=== PATIENT | female | born 1945 | race Caucasian/White ===

== ENCOUNTER → 2018-01-08 10:32 | Outpatient (CLI) | payer MEDICARE, OTHER, SELFPAY ==
[2018-01-08 12:32] LABS: Absolute Lymphocyte Count 0.49 X10^3/ul (0.83-4.51); Absolute Neutrophil Count 8.9 X10^3/uL (2.0-7.7); Basophil# 0.01 X10^3/uL; Basophil% 0.1 % (0-1); Eosinophil# 0.07 X10^3/uL; Eosinophils% 0.7 % (0-5); Hematocrit 34.8 % (37-47); Hemoglobin 10.6 g/dl (12.0-15.0); Lymphocyte # 0.49 X10^3/ul (4.0); Lymphocyte % 4.6 % (19-41); Mean Corp Hgb Conc 30.5 g/gl (32-36); Mean Corpuscular Hgb 26.2 pg (27.0-32.0); Mean Corpuscular Volume 86.1 fL (81-99); Monocyte# 1.14 X10^3/uL; Monocyte% 10.7 % (0-10); Neutrophil # 8.89 X10^3/uL (2.7-7.7); Neutrophil % 83.8 % (47-70); Platelet Count 288 K/mm3 (150-450); RBC Distribution Width CV 14.4 % (11.6-14.6); RBC Distribution Width SD 45.3 fl (35.1-43.9); Red Blood Count 4.04 M/mm3 (4.2-5.4); White Blood Count 10.6 K/mm3 (4.4-11.0)
[2018-01-08 12:37] LABS: Differential Indicated SCAN CRITERIA MET; POSITIVE COUNT NO; POSITIVE DIFFERENTIAL YES; POSITIVE MORPHOLOGY NO
[2018-01-08 12:40] LABS: Anion Gap 7 (5-15); BUN 13 mg/dL (7-18); BUN/Creat Ratio 11.7 RATIO (10-20); Calcium,Total 8.1 mg/dL (8.5-10.1); Chloride 101 mmol/L (98-107); Creatinine, Serum 1.11 mg/dL (0.55-1.02); EST Glomerular Filtration Rate 51 mL/min (>60); Est Glom Filt Rate - Afr Amer 62 mL/min (>60); Glucose 113 mg/dL (74-106); Potassium 2.2 mmol/L (3.5-5.1); Sodium Level 137 mmol/L (136-145); Thyroid Stim Hormone (TSH) 1.91 uIU/mL (0.358-3.74)
== END ==
PROVIDERS: Family Provider Family Medicine; PCP Family Medicine; Visit Provider Family Medicine
DX: R53.83 Other fatigue (principal)
CPT/HCPCS: 36415; 80048; 84443; 85025

== ENCOUNTER → 2018-01-14 15:40 | Outpatient (CLI) | payer MEDICARE, OTHER, SELFPAY ==
[2018-01-14 19:35] LABS: Anion Gap 7 (5-15); BUN 14 mg/dL (7-18); BUN/Creat Ratio 12.3 RATIO (10-20); Calcium,Total 8.7 mg/dL (8.5-10.1); Chloride 108 mmol/L (98-107); Creatinine, Serum 1.14 mg/dL (0.55-1.02); EST Glomerular Filtration Rate 50 mL/min (>60); Est Glom Filt Rate - Afr Amer 60 mL/min (>60); Glucose 86 mg/dL (74-106); Potassium 2.6 mmol/L (3.5-5.1); Sodium Level 141 mmol/L (136-145)
== END ==
PROVIDERS: Family Provider Family Medicine; PCP Family Medicine; Visit Provider Family Medicine
DX: E87.6 Hypokalemia (principal)
CPT/HCPCS: 36415; 80048

== ENCOUNTER → 2018-02-24 11:56 | Outpatient (CLI) | payer MEDICARE, OTHER, SELFPAY ==
[2018-02-24 13:58] LABS: Absolute Lymphocyte Count 0.65 X10^3/ul (0.83-4.51); Absolute Neutrophil Count 5.2 X10^3/uL (2.0-7.7); Basophil# 0.03 X10^3/uL; Basophil% 0.5 % (0-1); Eosinophil# 0.04 X10^3/uL; Eosinophils% 0.6 % (0-5); Hematocrit 37.7 % (37-47); Lymphocyte # 0.65 X10^3/ul (4.0); Lymphocyte % 9.8 % (19-41); Mean Corp Hgb Conc 31.8 g/gl (32-36); Mean Corpuscular Hgb 27.8 pg (27.0-32.0); Mean Corpuscular Volume 87.5 fL (81-99); Monocyte# 0.75 X10^3/uL; Monocyte% 11.3 % (0-10); Neutrophil # 5.17 X10^3/uL (2.7-7.7); Neutrophil % 77.5 % (47-70); Platelet Count 191 K/mm3 (150-450); RBC Distribution Width CV 15.8 % (11.6-14.6); RBC Distribution Width SD 50.5 fl (35.1-43.9); Red Blood Count 4.31 M/mm3 (4.2-5.4); White Blood Count 6.7 K/mm3 (4.4-11.0)
[2018-02-24 14:01] LABS: Anion Gap 11 (5-15); BUN 11 mg/dL (7-18); BUN/Creat Ratio 13.7 RATIO (10-20); Calcium,Total 8.9 mg/dL (8.5-10.1); Chloride 99 mmol/L (98-107); EST Glomerular Filtration Rate 74 mL/min (>60); Est Glom Filt Rate - Afr Amer 90 mL/min (>60); Glucose 92 mg/dL (74-106); Potassium 3.7 mmol/L (3.5-5.1); Sodium Level 135 mmol/L (136-145)
[2018-02-24 14:03] LABS: POSITIVE COUNT NO; POSITIVE DIFFERENTIAL NO; POSITIVE MORPHOLOGY NO
== END ==
PROVIDERS: Family Provider Family Medicine; PCP Family Medicine; Visit Provider Family Medicine
DX: E87.6 Hypokalemia (principal); R53.1 Weakness
CPT/HCPCS: 36415; 80048; 85025

== ENCOUNTER → 2018-03-16 09:30 | Outpatient (CLI) | payer MEDICARE, OTHER, SELFPAY ==
[2018-03-16 12:03] LABS: Absolute Lymphocyte Count 0.44 X10^3/ul (0.83-4.51); Absolute Neutrophil Count 11.5 X10^3/uL (2.0-7.7); Basophil# 0.01 X10^3/uL; Basophil% 0.1 % (0-1); Eosinophil# 0.01 X10^3/uL; Eosinophils% 0.1 % (0-5); Hematocrit 39.2 % (37-47); Hemoglobin 12.3 g/dl (12.0-15.0); Lymphocyte # 0.44 X10^3/ul (4.0); Lymphocyte % 3.6 % (19-41); Mean Corp Hgb Conc 31.4 g/gl (32-36); Mean Corpuscular Hgb 27.2 pg (27.0-32.0); Mean Corpuscular Volume 86.7 fL (81-99); Mean Platelet Vol. 10.4 fl (6.2-12.0); Monocyte# 0.44 X10^3/uL; Monocyte% 3.6 % (0-10); Neutrophil # 11.46 X10^3/uL (2.7-7.7); Neutrophil % 92.5 % (47-70); Platelet Count 194 K/mm3 (150-450); RBC Distribution Width SD 47.6 fl (35.1-43.9); Red Blood Count 4.52 M/mm3 (4.2-5.4); White Blood Count 12.4 K/mm3 (4.4-11.0)
[2018-03-16 12:10] LABS: Differential Indicated SCAN CRITERIA MET; POSITIVE COUNT NO; POSITIVE DIFFERENTIAL YES; POSITIVE MORPHOLOGY NO
[2018-03-16 13:33] LABS: ALB/GLOB Ratio 1.2 RATIO (0.9-2.4); AST(SGOT) 10 U/L (15-37); Alanine Aminotransfer ALT/SGPT 21 U/L (13-56); Albumin, Serum 3.6 g/dL (3.2-5.0); Alkaline Phosphatase 42 U/L (45-117); Anion Gap 11 (5-15); BUN 13 mg/dL (7-18); BUN/Creat Ratio 21.1 RATIO (10-20); Calcium,Total 8.7 mg/dL (8.5-10.1); Chloride 94 mmol/L (98-107); Cholesterol 200 mg/dL (200); Creatinine, Serum 0.62 mg/dL (0.55-1.02); EST Glomerular Filtration Rate 101 mL/min (>60); Est Glom Filt Rate - Afr Amer 122 mL/min (>60); Globulin 3.1 g/dL (2.2-4.2); Glucose 102 mg/dL (74-106); High Density Lipoprotein 116 mg/dL; Potassium 2.5 mmol/L (3.5-5.1); Protein, Total 6.7 g/dL (6.4-8.2); Sodium Level 134 mmol/L (136-145); Triglycerides 57 mg/dL; Very Low Density Lipoprotein 11 mg/dL (5-40)
== END ==
LOC: LAB 09:32 → MTLAB 09:32
PROVIDERS: Family Provider Family Medicine; PCP Family Medicine; Visit Provider Family Medicine
DX: G35 Multiple sclerosis (principal); E78.00 Pure hypercholesterolemia, unspecified; E87.6 Hypokalemia
CPT/HCPCS: 80053; 80061; 85025

== ENCOUNTER → 2018-05-22 12:54 | Outpatient (CLI) | payer MEDICARE, OTHER, SELFPAY ==
[2018-05-22 14:37] LABS: Anion Gap 8 (5-15); BUN 9 mg/dL (7-18); BUN/Creat Ratio 18.1 RATIO (10-20); Calcium,Total 8.5 mg/dL (8.5-10.1); Chloride 102 mmol/L (98-107); EST Glomerular Filtration Rate 130 mL/min (>60); Est Glom Filt Rate - Afr Amer 157 mL/min (>60); Glucose 100 mg/dL (74-106); Sodium Level 137 mmol/L (136-145)
--- OUTSIDE RECORDS SUMMARY | 2018-07-17 11:48 | XMS RPT_ITS ---
:1945 Author Organization OHIP Support Name Relationship Address Phone SIOMARA LUNA Unavailable Unavailable + [place] [address] KEMPEL, JOSESITO Unavailable [address] + [place] [address] R Unavailable Unavailable Unavailable HAMILTON DELACRUZ Unavailable [address] + [place] [address] DCEL, JOSESITO Unavailable [address] Unavailable [place], [place] [id number] TRISHA, JOSESITO Unavailable [address] + [place] [address] DCEL, JOSESITO Unavailable [address] + [place] [address] RETIRED Unavailable Unavailable Unavailable HAMILTON DELACRUZ Unavailable [address] + [place] [address] TRISHA, JOSESITO Unavailable [address] Unavailable [place], [place] [phone] SIOMARA LUNA Unavailable Unavailable + [place] [address] TRISHA, JOSESITO Unavailable [address] + [place] [address] R Unavailable Unavailable Unavailable SIOMARA LUNA Unavailable Unavailable + [place] [address] TRISHA, JOSESITO Unavailable [address] + [place] [address] R Unavailable Unavailable Unavailable HAMILTON DELACRUZ Unavailable [address] + [place] [address] ORLANDO DELACRUZO Unavailable [address] Unavailable [place], [place] [phone] HAMILTON DELACRUZ Unavailable [address] + [place] [address] JOSESITO DELACRUZ Unavailable [address] [place] [facility] [place] [id number] HAMILTON DELACRUZ Unavailable [address] + [place] [address] JOSESITO DELACRUZ Unavailable [address] Unavailable [place], [place] [phone] SIOMARA LUNA Unavailable Unavailable + [place] [address] JOSESITO DELACRUZ Unavailable [address] + [place] [address] R Unavailable Unavailable Unavailable HAMILTON DELACRUZ Unavailable [address] + [place] [address] JOSESITO DELACRUZ Unavailable [address] Unavailable [place], [place] [phone] FLEX LUNALY Unavailable Unavailable + [place] [address] JOSESITO DELACRUZ Unavailable [address] + [place] [address] R Unavailable Unavailable Unavailable Care Team Providers Name Role Phone ISIAH LOWE Referring Unavailable TREVOR KINGE Sanjuana (RESTAURANT CASHIER) Attending Unavailable ISIAH LOWE Referring Unavailable MADISYN NICHOLE A (RESTAURANT CASHIER) Referring Unavailable FINVeronique NICHOLE A (RESTAURANT CASHIER) Referring Unavailable ISIAH LOWE Referring Unavailable TOSHIA HARLEY Referring Unavailable FINKJOSE MIGUELNICHOLE A (RESTAURANT CASHIER) Attending Unavailable FINVeronique NICHOLE A (RESTAURANT CASHIER) Referring Unavailable FINK, NICHOLE A (RESTAURANT CASHIER) Referring Unavailable FINK, NICHOLE A (RESTAURANT CASHIER) Referring Unavailable NESHA BHAGAT. Attending Unavailable LEOLA NESHA K. Primary Care Unavailable BHAGAT, NESHA K Referring Unavailable NEISHA MEDINA MD Admitting Unavailable NEISHA MEDINA MD Attending Unavailable NEISHA MEDINA MD Primary Care Unavailable BHAGATNESHA K Consulting Unavailable PROVIDER, UNKNOWN Consulting Unavailable PROVIDER, UNKNOWN Consulting Unavailable BHAGAT, NESHA K Admitting Unavailable BHAGAT, NESHA K Attending Unavailable BHAGAT, NESHA K Primary Care Unavailable BHAGAT, NESHA K Consulting Unavailable PROVIDER, UNKNOWN Consulting Unavailable PROVIDER, UNKNOWN Consulting Unavailable BHAGAT, NESHA K Admitting Unavailable BHAGAT, NESHA K Attending Unavailable BHAGAT, NESHA K Primary Care Unavailable BHAGAT, NESHA K Consulting Unavailable PROVIDER, UNKNOWN Consulting Unavailable PROVIDER, UNKNOWN Consulting Unavailable BHAGAT, NESHA K Admitting Unavailable BHAGAT, NESHA K Attending Unavailable BHAGAT, NESHA K Primary Care Unavailable BHAGAT, NESHA K Consulting Unavailable PROVIDER, UNKNOWN Consulting Unavailable PROVIDER, UNKNOWN Consulting Unavailable BHAGAT, NESHA K Admitting Unavailable BHAGAT, NESHA K Attending Unavailable BHAGAT, NESHA K Primary Care Unavailable BHAGAT, NESHA K Consulting Unavailable PROVIDER, UNKNOWN Consulting Unavailable PROVIDER, UNKNOWN Consulting Unavailable BHAGAT, NESHA K Admitting Unavailable BHAGAT, NESHA K Attending Unavailable BHAGAT, NESHA K Primary Care Unavailable BHAGAT, NESHA K Consulting Unavailable PROVIDER, UNKNOWN Consulting Unavailable PROVIDER, UNKNOWN Consulting Unavailable Bhagat, Nesha Attending Unavailable Bhagat, Nesha Referring Unavailable Bhagat, Nesha Primary Care Unavailable Bhagat, Nesha Attending Unavailable Bhagat, Nesha Referring Unavailable Bhagat, Nesha Primary Care Unavailable Bhagat, Nesha Attending Unavailable Bhagat, Nesha Primary Care Unavailable Bhagat, Nesha Attending Unavailable Bhagat, Nesha Referring Unavailable Bhagat, Nesha Primary Care Unavailable Bhagat, Nesha Attending Unavailable Bhagat, Nesha Referring Unavailable Bhagat, Nesha Primary Care Unavailable PROBLEMS PROBLEMS DATE TYPE CONDITION / CODE ATTENDING STATUS SOURCE 05/26/2018 Active 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 Main therapy / [place] Z79.899(ICD-10) Repository 05/26/2018 Active Other malaise / NA Active [facility] R53.81(ICD-10) [facility] Main [place] Repository 05/26/2018 Active Other fatigue / NA Active [facility] R53.83(ICD-10) [facility] [place] Repository 02/24/2018 Unknown E87.6 - Hypokalemia Leola Nesha Active [facility] / E87.6(ICD-10) [facility] Repository 02/24/2018 Unknown R53.1 - Weakness / Leola Nesha Active [facility] R53.1(ICD-10) [facility] Repository 01/14/2018 Unknown 276.8 - Leola Nesha Active [facility] Hypopotassemia / [facility] 276.8(ICD-9) Hospital Repository 01/08/2018 Admitting Weakness / OMRAN, YASSER Active [facility] Diagnosis R531(ICD-10) [facility] Repository 01/08/2018 Principle Hypokalemia / OMRAN, YASSER Active [facility] Diagnosis E876(ICD-10) [facility] Repository 01/08/2018 Secondary Other specified soft OMRAN, YASSER Active [facility] Diagnosis tissue disorders / MD Herrera M7989(ICD-10) Hospital Repository 01/08/2018 Secondary Age-related OMRAN, YASSER Active [facility] Diagnosis osteoporosis without [facility] current pathological [facility] fracture / Repository M810(ICD-10) 01/08/2018 Secondary Other constipation / OMRAN, YASSER Active [facility] Diagnosis K5909(ICD-10) [facility] Repository 01/08/2018 Secondary Personal history of OMRAN, YASSER Active [facility] Diagnosis nicotine dependence [facility] / Q90435(ICD-10) Hospital Repository 01/08/2018 Secondary Other nursing home OMRAN, YASSER Active [facility] Diagnosis (current) drug [facility] therapy / Hospital W19261(ICD-10) Repository 01/08/2018 Unknown R53.83 - Other Nesha Bhagat Active [facility] fatigue / Community R53.83(ICD-10) Hospital Repository 04/09/2011 Active Multiple sclerosis / NA Active [facility] G35(ICD-10) [facility] [place] Repository 11/11/2017 Active Unspecified adverse NA Active [facility] effect of drug or Clinic Main medicament, initial [place] encounter / Repository T88.7XXA(ICD-10) PROCEDURES PROCEDURES No Procedure Records FoundRESULTS RESULTS MRI BRAIN WO/W Observed: 06/09/2018 Status: F Source: [place] IVCON 2:19 PM [facility] REPOSITORY * * *Final Report* * * DATE OF EXAM: Jun 09 2018 2:19PM [facility] 0295 - MRI BRAIN WO/W IVCON / PROCEDURE REASON: Multiple sclerosis (HCC) * * * * Physician Interpretation * * * * EXAMINATION: MRI BRAIN WO/W IVCON HISTORY: Multiple sclerosis. Routine follow-up TECHNIQUE: Brain MRI with demyelinating disease protocol with and without IV gadolinium. MQ: [id number] Contrast: 10ml mL Dotarem IV COMPARISON: MRI brain from 11/11/2017 RESULT: MR BRAIN: Parenchymal Findings: There are multiple foci of hyperintensity on FLAIR and T2 within the white matter, compatible with the clinical diagnosis of multiple sclerosis. New T2 Lesions: None Interval Improvement: None. New Enhancing Lesions: None T2 [place] of Disease: Mild. Parenchymal Volume Loss: Moderate. Other Significant Findings/Site(s) of New T2 Lesion(s): None. IMPRESSION: Multiple intracranial white matter lesions compatible with multiple sclerosis. No new T2 lesions and no new enhancing lesions. Moderate parenchymal volume loss. Other Significant Intracranial Findings: None *Note: New T2 Lesions includes both new and enlarging plaques on T2-weighted FLAIR images (new lesions greater than or equal to 5mm3 or an increase in diameter of an existing lesion by greater than or equal to 2mm). Factory Focus Technician: PSCB Transcribe Date/Time: Jun 09 2018 3:28P Dictated by : TYLER BARRON MD This examination was interpreted and the report reviewed and electronically signed by: TYLER BARRON MD on Jun 09 2018 3:30PM EST [id number] PROGRESS Observed: 06/09/2018 Status: COMPLETED Source: [place] 2:04 PM [facility] REPOSITORY [facility] ID: [id number] Author: Shell (Rt) Nancy Stallings Service: (none) Author Type: Skylights Assembler Type: Progress Notes Filed: 06/09/2018 2:05 PM Note Text: Radiology Service Progress Note PATIENT NAME: Davidson Delacruz DATE OF SERVICE: June 09, 2018 TIME: 2:04 PM PATIENT IDENTITY VERIFICATION COMPLETED USING TWO (2) METHODS: Patient confirmed name verbally and Date of . PATIENT GENDER DATA: Female. status: : No status: NO. PATIENT RELEVANT IMPLANT DATA REVIEWED: Yes CONTRAST INDUCED NEPHROPATHY RISK FACTORS: Patient age > 60 years CREATININE: Creatinine Date Value Ref Range Status 05/26/2018 0.54 (L) 0.58 - 0.96 mg/dL Final 11/11/2017 0.74 0.58 - 0.96 mg/dL Final 10/31/2016 0.67 0.58 - 0.96 mg/dL Final eGFR-All Other Races Date Value Ref Range Status 05/26/2018 >60 . Final Comment: eGFR (Estimated GFR) Units of measure: mL/min/1.73 meters squared eGFR is derived from the reexpressed MDRD Study equation using the following parameters: serum creatinine, age, gender and race. The creatinine assay has been calibrated to be traceable to IDMS. An eGFR <60 mL/min/1.73m2 for >3 months is consistent with chronic kidney disease. Refer to KDOQI guidelines for clinical interpretation. In patients with unstable renal function, e.g. those with acute kidney injury, the eGFR may not accurately reflect actual GFR. eGFR- Date Value Ref Range Status 05/26/2018 >60 Final P.O.C.T. RESULTS: POC done: Yes, See Lab Tab June 09, 2018 RADIOLOGIST NOTIFIED?: No ALLERGIES: Reviewed and unchanged CONTRAST ALLERGY: NO. PERIPHERAL IV ACCESS: Ambulatory: IV type: A peripheral IV was started in the Left antecubital site with a Angio cath: 22 gauge., Site assessment: Clean,Dry and Intact, Site disposition Discontinued RADIOLOGY DEPARTMENT: MR; Exam(s) Completed: Head: Multiple Sclerosis SIGNED BY: RT Giovanny June 09, 2018 2:04 PM COMP METABOLIC PANEL Collected: 05/26/2018 Status: F Source: [place] 12:17 PM [facility] REPOSITORY TYPE CODE TESTS RESULT OUT OF REFERENCE UNITS RANGE LAB TP 6.3-8.0 g/dL Protein, Low Total 6.0 LAB ALB 3.9-4.9 g/dL Albumin Low 3.4 LAB CA 8.5-10.2 mg/dL Calcium, Total 9.5 LAB TBIL 0.2-1.3 mg/dL Bilirubin, Total 0.2 LAB ALKP 34-123 U/L Alkaline Phosphatase 53 LAB AST 13-35 U/L AST Low 12 LAB GLU 74-99 mg/dL Glucose 98 LAB BUN 7-21 mg/dL BUN 7 LAB CRET 0.58-0.96 mg/dL Creatinine Low 0.54 LAB NA 136-144 mmol/L Sodium Low 135 LAB K 3.7-5.1 mmol/L Potassium 3.9 LAB CL 97-105 mmol/L Chloride 100 LAB CO2 22-30 mmol/L CO2 27 LAB AGAP mmol/L Anion Gap 8 LAB ALT 7-38 U/L ALT Low <5 LAB GFRAA eGFR- >60 Amer. LAB GFRNAA . eGFR-All Other Races >60 Result Comment: eGFR (Estimated GFR) Units of measure: mL/min/1.73 meters squared eGFR is derived from the reexpressed MDRD Study equation using the following parameters: serum creatinine, age, gender and race. The creatinine assay has been calibrated to be traceable to IDMS. An eGFR <60 mL/min/1.73m2 for >3 months is consistent with chronic kidney disease. Refer to KDOQI guidelines for clinical interpretation. In patients with unstable renal function, e.g. those with acute kidney injury, the eGFR may not accurately reflect actual GFR. CBC AND DIFFERENTIAL Collected: 05/26/2018 Status: F Source: [place] 12:17 PM [facility] REPOSITORY TYPE CODE TESTS RESULT OUT OF REFERENCE UNITS RANGE LAB WBC 3.70-11.00 k/uL WBC 8.05 LAB RBC 3.90-5.20 m/uL RBC 4.09 LAB HGB 11.5-15.5 g/dL Low Hemoglobin 11.2 LAB HCT 36.0-46.0 % Low Hematocrit 35.9 LAB MCV 80.0-100.0 fL MCV 87.8 LAB MCH 26.0-34.0 pG MCH 27.4 LAB MCHC 30.5-36.0 g/dL MCHC 31.2 LAB RDWCV 11.5-15.0 % RDW-CV 13.4 LAB PLTCT 150-400 k/uL Platelet Count 333 LAB MPV 9.0-12.7 fL MPV 10.2 LAB ANEUT % Neut% 80.0 LAB AANEUT 1.45-7.50 k/uL Abs Neut 6.44 LAB ALYMP % Lymph% 8.3 LAB AALYMP 1.00-4.00 k/uL Low Abs Lymph 0.67 LAB AMONO % [place]% 10.6 LAB AAMONO <0.87 k/uL Abs [place] 0.85 LAB AEOS % Eosin% 0.7 LAB AAEOS <0.46 k/uL Abs Eosin 0.06 LAB ABASO % Baso% 0.4 LAB AABASO <0.11 k/uL Abs Baso 0.03 LAB AUNRBC 0 /100 WBC NRBCs 0.0 LAB ABNRBC <0.01 k/uL Absolute nRBC <0.01 LAB DTYP DTYPE Auto Diff Performed By: #### CBCDIF, TSH, B12 #### [facility] [address] [place], [place] [address] TSH Collected: 05/26/2018 Status: F Source: [place] 12:17 PM [facility] REPOSITORY TYPE CODE TESTS RESULT OUT OF RANGE REFERENCE UNITS LAB TSH 0.400-5.500 uU/mL TSH 2.710 Performed By: #### CBCDIF, TSH, B12 #### [facility] [address] [place], [place] [address] VITAMIN B12 Collected: 05/26/2018 Status: F Source: [place] 12:17 PM [facility] [place] REPOSITORY TYPE CODE TESTS RESULT OUT OF REFERENCE UNITS RANGE LAB B12 232-1245 pg/mL Vitamin B12 451 Performed By: #### CBCDIF, TSH, B12 #### [facility] [address] [place], [place] [address] PROGRESS Observed: 05/25/2018 Status: COMPLETED Source: [place] 3:08 PM [facility] [place] REPOSITORY [facility] ID: [id number] Author: Isiah Lowe Service: (none) Author Type: Physician Type: Progress Notes Filed: 05/27/2018 2:45 PM Note Text: [facility] MULTIPLE SCLEROSIS FOLLOWUP/ESTABLISHED PATIENT VISIT PERSONS PRESENT AT ENCOUNTER: patient, ? Principal Neurologic Diagnosis: Multiple Sclerosis DISEASE SUMMARY Onset: approx 07/28 (approx 1989?) Diagnosis of MS: 12/26 Course at onset: primary progressive (vs. relapsing-remitting?) Current disease course: progressive Previous disease therapies: - Copaxone 03/28-12/01 (progression, disliked injections) - Gilenya 04/02-01/01 (infections and pancytopenia) - Tecfidera started 12/22/12 and dc'd 09/03 (leukopenia and lymphopenia) - Copaxone 40 mg 3/wk started 02/03 -12/07 - Biotin never?started in?09/05, 04/07, or 2016-b/o cost ? Current disease therapy: Ocrevus Date started 12/11/16, last q6M infusion 12/30/17 ? Most recent MRI brain: 10/31/16, 11/11/17 Most recent MRI cervical spine: 08/23/05 Most recent MRI thoracic spine: 08/23/05 CSF 12/28/05 increased IgG index, (+) OCBs TESTS SUPERINTENDENT scheduled for 01/17/06 and 01/31/06 but pt cancelled, completed 03/30/12 JCV serology: 11/11/17 (+) VZV Ig07/02/13 (+) Lab Results Component Value Date JCV Antibody INDETERMINATE 11/11/2017 JCV Index Value 0.30 (H) 11/11/2017 Discrete MRI Results Component Value Date Brain New T2 Lesions None 11/11/2017 Brain Enhancing Lesions None 11/11/2017 CHIEF COMPLAINT: Follow-up on MS disease modifying therapy INTERVAL HISTORY: -She developed increased weakness in her legs that started a few weeks after her Ocrevus infusion in December 2017. She was seen by her PCP and he felt that possibly it might be MS relapse. He ordered some labwork and was found to have low K at 2.3 . Was admitted to [facility] in [place] for over night stay to give IV potassium which she tolerated poorly and then transitioned to oral supplementation. Was given a prednisone taper for a few weeks after sent home from hospital by her PCP as her weakness did not improve despite K being in the normal range. Was seen by PCP colleague a few weeks later and started another higher dose course of prednisone taper. thought dose started at 60 mg qd. (taper may have been given in 01/2018). Pt and also note that her memory is not as good as prior to onset of the leg weakness in 01/07. She notes some leg strength increasing but still not back to baseline and using a walker to transfer but not able to walk. Was seen by home PT for 7-8 weeks. and now will be doing outpt PT soon. Last potassium check done last Friday was reportedly 4.0 . PCP recommended they come to [facility] for neurology appt since she has not gotten back to her previous baseline. reported they did not call our office or come to [facility] as it is [address] their home and felt PCP was handling w/u well and that since the potassium was low that explained her weakness. -She also has had onset of pain in her neck and goes to scapula and upper arms in last 4-6 weeks. Feels muscles are aching. SX are there daily and do not restrict moving head or activity. When she got a massage recently had to ask the staff to do it more lightly as it felt painful. Issues with current MS therapy: Tolerated Ocrevus infusions without side effects. SUBJECTIVE AND REVIEW OF SYSTEMS: Neuro-QoL Functions (higher = better functioning) Office Visit from 09/26/2016 in [facility] Office Visit from 03/28/2016 in [facility] Upper Extremity Domain T Score ? 32.58 Lower Extremity Domain T Score 40.24 40.24 Cognitive Function Domain T Score 48.61 40.89 Positive Affect Well Being T Score 49.96 48.35 Ability To Participate In Social Roles T Score ? 47.04 Satisfaction With Social Roles T Score 43.36 41.4 Neuro-QoL Symptoms (higher = worse symptoms) Office Visit from 09/26/2016 in [facility] Office Visit from 03/28/2016 in [facility] Sleep Domain T Score 42.21 49.03 Fatigue Domain T Score 43.24 47.04 Anxiety Domain T Score ? 53.23 Depression Domain T Score 46.93 50.36 Stigma Domain T Score 50.07 52.77 Emotional Behavior Dyscontrol T Score 37.3 45.21 *NeuroQoL is a multi-domain patient-reported quality of life questionnaire. PHQ-9 Office Visit from 09/26/2016 in [facility] Office Visit from 03/28/2016 in [facility] PHQ-9 Score 1 7 *PHQ-9 is a questionnaire for depressive symptoms, with scores 0-4 indicating none, 5-9 mild, 10-14 moderate, 15-19 moderately severe, and 20-27 severe symptoms. PROMIS-10 Office Visit from 09/26/2016 in [facility] Office Visit from 03/28/2016 in [facility] Global Physical Health T Score 44.9 37.4 Global Mental Health T Score 45.8 38.8 0-10 Standard Pain Scale 3 3 *PROMIS-10 is a patient-reported quality of life measure, typically reported as physical and mental domains. Here scores are expressed as percentiles, where the lowest possible score is one, the highest possible score is 99, and 50 is average. Refer to patient-entered data. Mood: Depressed r/t change in physical functioning Spasticity:Legs Bladder: urgency, but has good control. Pt does not think any urine testing done when onset of weakness began. Denied and change in bladder function at that time Bowel: uses laxative which helps constipation. Has BM 4 times a week Pain related to today's visit:neck pain, see HPI Fatigue: Moderate Sleep: ok Memory/Concentration: nursing home is ok, but she notes short term memory has not been as good since the leg weakness started. Ex : was making a recipe and could not recall if she placed all the ingredients within a few min of starting the recipe . feels he notes the memory change also, more forgetful. PAST HISTORY was reviewed and updated: PAST MEDICAL HISTORY Diagnosis Date - Arthralgia of temporomandibular joint - Esophageal reflux - ITP (idiopathic thrombocytopenic purpura) - Multiple sclerosis (HCC) - Myalgia and myositis, unspecified - Other anxiety states - Other forms of migraine - Other osteoporosis - Other sleep disturbances - Pain in joint, pelvic region and thigh R hip pain PAST SURGICAL HISTORY Procedure Laterality Date - EXCIS BREAST LES W XRAY MARKER 02/05/06 right - MAMMOGRAM NEEDLE LOC LEFT 02/05/06 right - PAST SURGICAL HISTORY OF 2014 cataract surgery - PREOP PLACEMENT NEEDLE LOC 02/05/06 right MEDICATIONS and ALLERGIES were reviewed and updated. SOCIAL HISTORY was reviewed and updated: retired Living situation: Living at home without assistance No falls in last mo OBJECTIVE: VITALS AND WELLNESS: BP 100/54 Pulse 111 Resp 16 Ht 157.5 cm (5' 2) Wt 47.2 kg (104 lb) BMI 19.02 kg/m? Recheck on pulse manually per [facility] was 100 Smoking status: Former Smoker 1.50 Packs/day For 14.00 Years Types: Cigarettes Quit date: 01/12/1978 Smokeless tobacco: Never Used Comment: quit 1977 Multiple Sclerosis Performance Test Office Visit from 07/15/2017 in [facility] Office Visit from 09/26/2016 in [facility] Processing Speed Total Number Correct ? ? Low-contrast letter acuity test-2.5 percent opacity ? ? Low-contrast letter acuity test-100 percent opacity ? ? Dominant hand Right hand Right hand MDT Left Hand Time ? 39.1 MDT Right Hand Time ? 33.7 Walking Speed Test (25 feet) ? 9.1 25 ft walk done per [facility] with stopwatch and was 21.3 sec.- With use of wheeled walker EXAM: General Appearance: Well appearing, alert, in no acute distress, well-hydrated, well nourished. Mental status evaluation during the interview and examination showed normal level of consciousness, orientation, language, memory, praxis, and higher intellectual function Affect: Normal Visual acuity: OD 20/30-2 OS 20/30 Correction: With glasses Facial sensation: Intact bilateral Facial movements: Intact bilateral Speech: normal Muscle tone: Right leg spasticity: Mild Left leg spasticity: Mild Muscle strength (#/5): Right Left Upper Extremity: Deltoids 4 4 Biceps 5 5 trunk weakness agnes Triceps 5 5 Title I Teacher 5 5 Dorsal interossei 5 5 Lower extremity: Iliopsoas 5- 5 Quadriceps 5 5 Hamstrings 5 5 Tibialis anterior 5- 5 Gastrocnemius 5 5 Coordination: Upper extremity dexterity and rapid movements: Impaired bilateral Heel-haddad: no dysmetria; coordination intact Standing balance: unable to perform Standard gait: wide based, small shuffling steps, stiff. Assistive device: walker with wheels Heel walking: unable to perform Toe walking: unable to perform Tandem walking: unable to perform RESULTS: Monitoring labs: CBC + Diff Component Value Date WBC 5.55 11/11/2017 HB 11.0 (L) 11/11/2017 HCT 37.0 11/11/2017 PLT 181 11/11/2017 ABSLYMPH 0.69 (L) 11/11/2017 Vitamin D Component Value Date VITD25 44.2 10/31/2016 CMP Component Value Date AST 24 11/11/2017 GLUC 70 (L) 11/11/2017 BUN 16 11/11/2017 CREAT 0.74 11/11/2017 NA 140 11/11/2017 K 3.7 11/11/2017 CHLOR 98 11/11/2017 ALT 17 11/11/2017 ASSESSMENT/PLAN: Disease status: neurologic exam with some increased UE weakness, gait is worse and thinking/memory is not as good since last Ocrevus infusion Symptomatic issues: gait dysfunction, memory impairment Psychosocial issues: some depression Non-MS related issues: low potassium potentially r/t use of HCTZ PATIENT HEALTH EDUCATION: MD/RESTAURANT CASHIER reviewed need to notify our office when change in neuro status occurs to provide recommendations as to plan of care and on a new med Ocrevus. PLAN: Testing: TSH, CMP, CBC, B12 Brain MRI AB-MRI of the brain and/or spinal cord is being ordered to evaluate for efficacy of multiple sclerosis (MS) disease modifying therapy.Pt also has had change in gait and memory since 12/30. Disease activity in MS is often not immediately detectable on history or examination, but is sensitively identified on MRI. If identified, new or active MS lesions on MRI may represent suboptimal response to MS therapy, and would change medical management. Referrals: None Medications: will await MRI results Follow-up: In 1 month at [facility] I spent 50 minutes in this visit, with >50% direct patient time spent counseling about prognosis, treatment options, and coordination of care. The patient was seen with Dr. Lowe. Nichole King RN HOME CARE ADMINISTRATOR.RESTAURANT CASHIER I saw and evaluated the patient. I reviewed the note and agree with the history, exam findings, assessment, and plan listed above. Her exam is noticeably worse than previously. She seems slow mentally. Gait is slow,m wide-based, with small steps. Not definitely parkinsonian but suggestive in some ways. No tremor or rigidity in the arms. Increased Sx developed shortly after the 3rd Ocrevus cycle so an MS relapse would seem unlikely, particularly in a 75 year old with PPMS. She feels she improved some, but is clearly not back to previous baseline. Further revaluation is warranted. Isiah Lowe MD CNOV Observed: 05/25/2018 Status: COMPLETED Source: [place] 1:55 PM [facility] REPOSITORY Office Visit (NEMN) DAVIDSON DELACRUZ ([id number]) 1945 F Date Time Provider Department 05/25/18 1:55 PM NICHOLE KING ([facility]) [facility] During your visit today, we recorded the following information about you: Pulse Respiration Blood pressure Weight 111/minute 16/minute 100/54 47.2 kg Height 1.575 m Isiah Lowe MD 05/27/2018 2:[address] [facility] MULTIPLE SCLEROSIS FOLLOWUP/ESTABLISHED PATIENT VISIT PERSONS PRESENT AT ENCOUNTER: patient, ? Principal Neurologic Diagnosis: Multiple Sclerosis DISEASE SUMMARY Onset: approx 07/28 (approx 1989?) Diagnosis of MS: 12/26 Course at onset: primary progressive (vs. relapsing-remitting?) Current disease course: progressive Previous disease therapies: - Copaxone 03/28-12/01 (progression, disliked injections) - Gilenya 04/02-01/01 (infections and pancytopenia) - Tecfidera started 12/22/12 and dc'd 09/03 (leukopenia and lymphopenia) - Copaxone 40 mg 3/wk started 02/03 -12/07 - Biotin never?started in?09/05, 04/07, or 2016-b/o cost ? Current disease therapy: Ocrevus Date started 12/11/16, last q6M infusion 12/30/17 ? Most recent MRI brain: 10/31/16, 11/11/17 Most recent MRI cervical spine: 08/23/05 Most recent MRI thoracic spine: 08/23/05 CSF 12/28/05 increased IgG index, (+) OCBs TESTS SUPERINTENDENT scheduled for 01/17/06 and 01/31/06 but pt cancelled, completed 03/30/12 JCV serology: 11/11/17 (+) VZV Ig07/02/13 (+) Lab Results Component Value Date JCV Antibody INDETERMINATE 11/11/2017 JCV Index Value 0.30 (H) 11/11/2017 Discrete MRI Results Component Value Date Brain New T2 Lesions None 11/11/2017 Brain Enhancing Lesions None 11/11/2017 CHIEF COMPLAINT: Follow-up on MS disease modifying therapy INTERVAL HISTORY: -She developed increased weakness in her legs that started a few weeks after her Ocrevus infusion in December 2017. She was seen by her PCP and he felt that possibly it might be MS relapse. He ordered some labwork and was found to have low K at 2.3 . Was admitted to [facility] in [place] for over night stay to give IV potassium which she tolerated poorly and then transitioned to oral supplementation. Was given a prednisone taper for a few weeks after sent home from hospital by her PCP as her weakness did not improve despite K being in the normal range. Was seen by PCP colleague a few weeks later and started another higher dose course of prednisone taper. thought dose started at 60 mg qd. (taper may have been given in 01/2018). Pt and also note that her memory is not as good as prior to onset of the leg weakness in 01/07. She notes some leg strength increasing but still not back to baseline and using a walker to transfer but not able to walk. Was seen by home PT for 7-8 weeks. and now will be doing outpt PT soon. Last potassium check done last Friday was reportedly 4.0 . PCP recommended they come to [facility] for neurology appt since she has not gotten back to her previous baseline. reported they did not call our office or come to [facility] as it is [address] their home and felt PCP was handling w/u well and that since the potassium was low that explained her weakness. -She also has had onset of pain in her neck and goes to scapula and upper arms in last 4-6 weeks. Feels muscles are aching. SX are there daily and do not restrict moving head or activity. When she got a massage recently had to ask the staff to do it more lightly as it felt painful. Issues with current MS therapy: Tolerated Ocrevus infusions without side effects. SUBJECTIVE AND REVIEW OF SYSTEMS: Neuro-QoL Functions (higher = better functioning) Office Visit from 09/26/2016 in [facility] Office Visit from 03/28/2016 in [facility] Upper Extremity Domain T Score ? 32.58 Lower Extremity Domain T Score 40.24 40.24 Cognitive Function Domain T Score 48.61 40.89 Positive Affect Well Being T Score 49.96 48.35 Ability To Participate In Social Roles T Score ? 47.04 Satisfaction With Social Roles T Score 43.36 41.4 Neuro-QoL Symptoms (higher = worse symptoms) Office Visit from 09/26/2016 in [facility] Office Visit from 03/28/2016 in [facility] Sleep Domain T Score 42.21 49.03 Fatigue Domain T Score 43.24 47.04 Anxiety Domain T Score ? 53.23 Depression Domain T Score 46.93 50.36 Stigma Domain T Score 50.07 52.77 Emotional Behavior Dyscontrol T Score 37.3 45.21 *NeuroQoL is a multi-domain patient-reported quality of life questionnaire. PHQ-9 Office Visit from 09/26/2016 in [facility] Office Visit from 03/28/2016 in [facility] PHQ-9 Score 1 7 *PHQ-9 is a questionnaire for depressive symptoms, with scores 0-4 indicating none, 5-9 mild, 10-14 moderate, 15-19 moderately severe, and 20-27 severe symptoms. PROMIS-10 Office Visit from 09/26/2016 in [facility] Office Visit from 03/28/2016 in [facility] Global Physical Health T Score 44.9 37.4 Global Mental Health T Score 45.8 38.8 0-10 Standard Pain Scale 3 3 *PROMIS-10 is a patient-reported quality of life measure, typically reported as physical and mental domains. Here scores are expressed as percentiles, where the lowest possible score is one, the highest possible score is 99, and 50 is average. Refer to patient-entered data. Mood: Depressed r/t change in physical functioning Spasticity:Legs Bladder: urgency, but has good control. Pt does not think any urine testing done when onset of weakness began. Denied and change in bladder function at that time Bowel: uses laxative which helps constipation. 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 Ex : was making a recipe and could not recall if she placed all the ingredients within a few min of starting the recipe . feels he notes the memory change also, more forgetful. PAST HISTORY was reviewed and updated: PAST MEDICAL HISTORY Diagnosis Date - Arthralgia of temporomandibular joint - Esophageal reflux - ITP (idiopathic thrombocytopenic purpura) - Multiple sclerosis (HCC) - Myalgia and myositis, unspecified - Other anxiety states - Other forms of migraine - Other osteoporosis - Other sleep disturbances - Pain in joint, pelvic region and thigh R hip pain PAST SURGICAL HISTORY Procedure Laterality Date - EXCIS BREAST LES W XRAY MARKER 02/05/06 right - MAMMOGRAM NEEDLE LOC LEFT 02/05/06 right - PAST SURGICAL HISTORY OF 2014 cataract surgery - PREOP PLACEMENT NEEDLE LOC 02/05/06 right MEDICATIONS and ALLERGIES were reviewed and updated. SOCIAL HISTORY was reviewed and updated: retired Living situation: Living at home without assistance No falls in last mo OBJECTIVE: VITALS AND WELLNESS: BP 100/54 Pulse 111 Resp 16 Ht 157.5 cm (5' 2) Wt 47.2 kg (104 lb) BMI 19.02 kg/m? Recheck on pulse manually per APC was 100 Smoking status: Former Smoker 1.50 Packs/day For 14.00 Years Types: Cigarettes Quit date: 01/12/1978 Smokeless tobacco: Never Used Comment: quit 1977 Multiple Sclerosis Performance Test Office Visit from 07/15/2017 in [facility] Office Visit from 09/26/2016 in [facility] Processing Speed Total Number Correct ? ? Low-contrast letter acuity test-2.5 percent opacity ? ? Low-contrast letter acuity test-100 percent opacity ? ? Dominant hand Right hand Right hand MDT Left Hand Time ? 39.1 MDT Right Hand Time ? 33.7 Walking Speed Test (25 feet) ? 9.1 25 ft walk done per APC with stopwatch and was 21.3 sec.- With use of wheeled walker EXAM: General Appearance: Well appearing, alert, in no acute distress, well-hydrated, well nourished. Mental status evaluation during the interview and examination showed normal level of consciousness, orientation, language, memory, praxis, and higher intellectual function Affect: Normal Visual acuity: OD 20/30-2 OS 20/30 Correction: With glasses Facial sensation: Intact bilateral Facial movements: Intact bilateral Speech: normal Muscle tone: Right leg spasticity: Mild Left leg spasticity: Mild Muscle strength (#/5): Right Left Upper Extremity: Deltoids 4 4 Biceps 5 5 trunk weakness agnes Triceps 5 5 Title I Teacher 5 5 Dorsal interossei 5 5 Lower extremity: Iliopsoas 5- 5 Quadriceps 5 5 Hamstrings 5 5 Tibialis anterior 5- 5 Gastrocnemius 5 5 Coordination: Upper extremity dexterity and rapid movements: Impaired bilateral Heel-haddad: no dysmetria; coordination intact Standing balance: unable to perform Standard gait: wide based, small shuffling steps, stiff. Assistive device: walker with wheels Heel walking: unable to perform Toe walking: unable to perform Tandem walking: unable to perform RESULTS: Monitoring labs: CBC + Diff Component Value Date WBC 5.55 11/11/2017 HB 11.0 (L) 11/11/2017 HCT 37.0 11/11/2017 PLT 181 11/11/2017 ABSLYMPH 0.69 (L) 11/11/2017 Vitamin D Component Value Date VITD25 44.2 10/31/2016 CMP Component Value Date AST 24 11/11/2017 GLUC 70 (L) 11/11/2017 BUN 16 11/11/2017 CREAT 0.74 11/11/2017 NA 140 11/11/2017 K 3.7 11/11/2017 CHLOR 98 11/11/2017 ALT 17 11/11/2017 ASSESSMENT/PLAN: Disease status: neurologic exam with some increased UE weakness, gait is worse and thinking/memory is not as good since last Ocrevus infusion Symptomatic issues: gait dysfunction, memory impairment Psychosocial issues: some depression Non-MS related issues: low potassium potentially r/t use of HCTZ PATIENT HEALTH EDUCATION: MD/RESTAURANT CASHIER reviewed need to notify our office when change in neuro status occurs to provide recommendations as to plan of care and on a new med Ocrevus. PLAN: Testing: TSH, CMP, CBC, B12 Brain MRI AB-MRI of the brain and/or spinal cord is being ordered to evaluate for efficacy of multiple sclerosis (MS) disease modifying therapy.Pt also has had change in gait and memory since 12/30. Disease activity in MS is often not immediately detectable on history or examination, but is sensitively identified on MRI. If identified, new or active MS lesions on MRI may represent suboptimal response to MS therapy, and would change medical management. Referrals: None Medications: will await MRI results Follow-up: In 1 month at [facility] I spent 50 minutes in this visit, with >50% direct patient time spent counseling about prognosis, treatment options, and coordination of care. The patient was seen with Dr. Lowe. Nichole King, RN HOME CARE ADMINISTRATOR.RESTAURANT CASHIER I saw and evaluated the patient. I reviewed the note and agree with the history, exam findings, assessment, and plan listed above. Her exam is noticeably worse than previously. She seems slow mentally. Gait is slow,m wide-based, with small steps. Not definitely parkinsonian but suggestive in some ways. No tremor or rigidity in the arms. Increased Sx developed shortly after the 3rd Ocrevus cycle so an MS relapse would seem unlikely, particularly in a 75 year old with PPMS. She feels she improved some, but is clearly not back to previous baseline. Further revaluation is warranted. Isiah Lowe MD Referring Provider: NICHOLE KING (RESTAURANT CASHIER) [[id number]] Allergies As of Date: 05/25/2018 Noted Allergy Reaction insect bite [Other] 07/25/2005 10 - Anaphylaxis Comments: Type of fly not sure what the name is Date Reviewed: 05/25/2018 Reviewed by: Nichole Wei ([facility]) Madisyn - Fully Assessed Reason for Visit: Individual Follow-up [156] Primary Visit Diagnosis:MS (multiple sclerosis) (HCC) [G35] Other Visit Diagnoses:Bilateral leg paresthesia [R20.2] Abnormality of gait [R26.9] Encounter for long-term (current) use of medications [Z79.899] Malaise and fatigue [R53.81, R53.83] Multiple sclerosis (HCC) [G35] Memory impairment [R41.3] High risk medication use [Z79.899] Order(s):CBC + DIFF [SQCBCDIF] Order #: [id number] FUTURE COMP METABOLIC PANEL [SQCMP] Order #: [id number] FUTURE TSH BLD [SQTSH] Order #: [id number] FUTURE VITAMIN B12 BLOOD [SQB12] Order #: [id number] FUTURE MRI BRAIN WO/W IVCON [4535143] Order #: [id number] FUTURE [] iv contrast (will be provided with radiology test)MRI Brain Inject, intravenously, once for 1 dose.No IV access, insert saline lock prior to beginning of sedation, infusion, injection of imaging exam.Discontinue saline lock post exam. If Pt. has a central line or IVAD, may access for administration according to line specific nursing protocol.Once exam is complete flush line and de- access according to line specific nursing protocol in the MR contrast administration guidelines linkDisp: 1 EachRfl: 0 Prescriptions as of 05/25/2018 Sig: POTASSIUM CHLORIDE ER 20 MEQ * Take 20 mEq by mouth once marisol* PRILOSEC OTC ORAL Take 1 tablet by mouth once d* LACTOBACILLUS ACIDOPHILUS 460* Take 1 capsule by mouth once * BISACODYL 5 MG TABLET Take 3 tablets by mouth as ne* ALENDRONATE 70 MG TABLET once each week. ONDANSETRON HCL 4 MG TABLET as needed. GABAPENTIN 300 MG CAPSULE 600 mg once daily. FLUCONAZOLE 150 MG TABLET as needed. SENNOSIDES 25 MG TABLET Take 50 mg by mouth once brittany* OCRELIZUMAB 30 MG/ML INTRAVEN* Inject 20 mL intravenously on* CHOLECALCIFEROL (VITAMIN D3) * Take 5,000 Units by mouth onc* MELATONIN 5 MG TABLET Take 5 mg by mouth at bedtime* ROPINIROLE 1 MG TABLET Take 2 tablets in AM 1 tablet* AMITRIPTYLINE 25 MG TABLET Take two tablets by mouth at * DOCUSATE SODIUM 100 MG CAPSULE Take 100 mg by mouth once marisol* ERYTHROMYCIN-BENZOYL PEROXIDE* Apply to affected area. 1 ap* EPINEPHRINE 0.3 MG/0.3 ML INJ* Use as directed IM injection* * ESTRADIOL 0.01% (0.1 MG/GRAM)* Use 0.5 g vaginally. twice we* * TESTOSTERONE (BULK) MISC Apply cream to vaginal area n* * CALCIUM CARB-VIT D3-MAGNESIUM* Take by mouth once daily. * ALPRAZOLAM 0.5 MG TABLET Take by mouth. Take one(1) t* * VICODIN 5 MG-500 MG TABLET 1 tab twice a day for hip/jaxson* IV CONTRAST (RADIOLOGY PROCED* MRI Brain Inject, intravenous* FAMOTIDINE 20 MG TABLET Take 20 mg by mouth twice marisol* * DIGESTIVE ENZYMES CAPSULE Take one(1) tablet two(2) valerie* * PYRIDIUM 200 MG TABLET as necessary Problem List As Of Date 05/25/2018 Noted Resolved UNSP ABNORMAL MAMMOGRAM (right) [R92.8] INVALID FOR* DIFFUS CYSTIC MASTOPATHY [N60.19] INVALID FOR* ABNORMALITY OF GAIT [R26.9] INVALID FOR* Abnormal involuntary movement [R25.9] INVALID FOR* LACK OF COORDINATION [R27.9] INVALID FOR* SENILE OSTEOPOROSIS [M81.0] INVALID FOR* Bilateral Leg Paresthesia [R20.2] INVALID FOR* MS (multiple sclerosis) [G35] INVALID FOR* Other pancytopenia [D61.818] INVALID FOR* Unspecified constipation [K59.00] INVALID FOR* Esophagitis, unspecified [K20.9] INVALID FOR* Iron deficiency anemia, unspecified [D50.9] INVALID FOR*11/23/2013 Thrombocytopenia (HCC) [D69.6] INVALID FOR* Prescriptions ordered this encounter Disp Refills Start End IV CONTRAST (RADIOLOGY PROCEDURE) 1 Ea* 0 05/25/2018 05/26/2018 Class: In Office Sig: MRI Brain Inject, intravenously, once for 1 dose.No IV access, insert saline lock prior to beginning of sedation, infusion, injection of imaging exam.Discontinue saline lock post exam. If Pt. has a central line or IVAD, may access for administration according to line specific nursing protocol.Once exam is complete flush line and de-access according to line specific nursing protocol in the MR contrast administration guidelines link Medications Discontinued During This Encounter COMPOUNDED PRESCRIPTION 60 c* 5 08/24/2015 05/25/2018 Sig: High dose Biotin 100 mg capsule once a day x 2 weeks then increase to 100 mg BID. Disc: Cost of medication Hydrochlorothiazide 12.5 mg capsule 05/25/2018 Class: Historical Med Route: ORAL Sig: Take 12.5 mg by mouth once daily. Disc: Discontinued by another Health Care Provider Disposition: Return in about 1 month (around 06/25/2018) for f/u with [facility]. Follow-up and Disposition History Recorded Encounter Status:Closed by ISIAH LOWE MD on 05/27/18 BASIC METABOLIC Collected: 05/22/2018 Status: F Source: [place] ([place]) 1:13 PM [facility] Order Comment: Order Date: 03/16/18 Order Info: [id number] - BMP TYPE CODE TESTS RESULT OUT OF RANGE REFERENCE UNITS LAB L501.0100 74-106 mg/dL Normal GLU 100 Result Comment: Fasting Glucose result from 100 to 125 mg/dL suggests IMPAIRED HOMEOSTASIS per A.D.A. criteria. Please note revised GLUCOSE reference range effective 2017. LAB L501.1000 7-18 mg/dL Normal BUN 9 LAB L501.1100 0.55-1.02 mg/dL Low CREAT,SERUM 0.50 Result Comment: The validity of the calculated GFR AND GFRAA in patients over 70 years has not been determined. Clinical correlation is essential. LAB L501.1110 >60 mL/min Normal EST GFR 130 Result Comment: Non- GFR Calc LAB L501.1115 >60 mL/min Normal EST GFR - AA 157 Result Comment: GFR Calc LAB L501.1300 10-20 RATIO Normal BUN/CRE 18.1 LAB L501.2200 8.5-10.1 mg/dL CA Normal 8.5 LAB L501.5300 136-145 mmol/L NA Normal 137 LAB L501.5600 3.5-5.1 mmol/L K Normal 4.0 LAB L501.5900 98-107 mmol/L CL Normal 102 LAB L501.6100 21.0-32.0 mmol/L Normal CO2 27.0 LAB L501.6200 5-15 Normal GAP 8 Performed By: #### L500.2500 #### [facility] [address] [place], [address] ELECTROLYTES-PANEL 4 Collected: Status: F Source: [place] 04/13/2018 2:18 PM [facility] REPOSITORY TYPE CODE TESTS RESULT OUT OF RANGE REFERENCE UNITS LAB ELECTROLYTE S-PANEL 4(LOINC) ELECTROLYTES -PANEL 4 Result Comment: ELECTROLYTES LAB SODIUM(LOINC) 136 - 145 mmol/l SODIUM Low 133 LAB POTASSIUM(LOINC) 3.5 - 5.1 mmol/L POTASSIUM 4.2 LAB CHLORIDE(LOINC) 98 - 107 mmol/L CHLORIDE 98 LAB CO2(LOINC) 21.0 - mmol/L 31.0 CO2 27.3 Performed By: #### [id number] #### [facility],[address] [place] [address] BASIC METABOLIC PANEL Collected: 04/01/2018 Status: F Source: [place] 10:30 AM [facility] REPOSITORY TYPE CODE TESTS RESULT OUT OF REFERENCE UNITS RANGE LAB NA(LOINC) 132-145 mmol/L Low Sodium 131 LAB K(LOINC) 3.3-5.1 mmol/L Potassium 4.0 LAB CLI(LOINC) 94-110 mmol/L Chloride 97 LAB TCO2(LOINC 21-34 mmol/L ) Total Co2 27 LAB GLU(LOINC) 65-100 mg/dL Glucose High 105 LAB BUN(LOINC) 3.2-26.9 mg/dL BUN 8.3 LAB CREAT(LOIN 0.51-0.95 mg/dL C) Creatinine 0.53 LAB CA(LOINC) 8.2-10.0 mg/dL Calcium 8.6 LAB AGAP(LOINC 8.0-16.0 mmol/L ) Anion Gap 11.0 LAB B-C(LOINC) 6-20 BUN/CREAT Ratio 16 LAB EGFR4(LOIN >60 C) EGFR Other Races >60 LAB EGFR5(LOIN >60 C) EGFR >60 Result Comment: Chronic Kidney Disease less than 60 mL/min/1.73 m2 Kidney Failure less than 15 mL/min/1.73 m2 Average estimated GFR by age: 70+ years 75 mL/min/1.73 m2 Performed By: #### BMP #### [facility] [address] [place] [address] BMP WITH EGFR Collected: 03/23/2018 Status: F Source: [facility] 10:34 [facility] REPOSITORY TYPE CODE TESTS RESULT OUT OF RANGE REFERENCE UNITS LAB BMP with eGFR(LOINC) BMP with eGFR Result Comment: BASIC METABOLIC PANEL LAB SODIUM(LOINC) 136 - 145 mmol/l SODIUM Low 131 LAB POTASSIUM(LOINC) 3.5 - 5.1 mmol/L POTASSIUM 3.6 LAB CHLORIDE(LOINC) 98 - 107 mmol/L CHLORIDE Low 96 LAB CO2(LOINC) 21.0 - mmol/L 31.0 CO2 27.9 LAB GLUCOSE(LOINC) 74 - 106 mg/dl GLUCOSE High 111 LAB BUN(LOINC) 6 - 20 mg/dl BUN 9 LAB CREATININE(LOINC) 0.6 - 1.2 mg/dl CREATININE 0.6 LAB CALCIUM(LOINC) 8.6 - mg/dl 10.2 CALCIUM 9.1 LAB ANION GAP(LOINC) 10 - 20 mmol/L ANION GAP 11 LAB AGE(LOINC) years AGE 73 LAB eGFR(LOINC) 60 - 999 ML/MINUTE eGFR >60 LAB eGFR(AA)(LOINC) 60 - 999 ML/MINUTE eGFR(AA) >60 Result Comment: ACCORDING TO THE NATIONAL KIDNEY DISEASE EDUCATION PROGRAM(NKDE), A NORMAL eGFR IS A VALUE GREATER THAN OR EQUAL TO 60 ML/MIN/1.73 SQ METERS. CHRONIC KIDNEY DISEASE: <60mL/MIN/1.73 SQ METERS KIDNEY FAILURE: <15mL/MIN/1.73 SQ METERS THIS TEST SHOULD ONLY BE USED FOR PATIENTS 18 YEARS OF AGE AND OLDER. Performed By: #### [id number] #### [facility],[address] [place] [address] CBC W/DIFF, AUTOMATED Collected: 03/16/2018 Status: F Source: [place] 9:38 AM [facility] Order Comment: Order Date: 09/16/17 Order Info: [id number] - CBCD TYPE CODE TESTS RESULT OUT OF RANGE REFERENCE UNITS LAB L100.1000 4.4-11.0 K/mm3 High WBC 12.4 LAB L100.1200 4.2-5.4 M/mm3 Normal RBC 4.52 LAB L100.1300 12.0-15.0 g/dl Normal HGB 12.3 LAB L100.1400 37-47 % Normal HCT 39.2 LAB L100.1500 81-99 fL Normal MCV 86.7 LAB L100.1600 27.0-32.0 pg Normal MCH 27.2 LAB L100.1700 32-36 g/gl Low MCHC 31.4 LAB L100.1810 11.6-14.6 % High RDW CV 15.0 LAB L100.1820 35.1-43.9 fl High RDW SD 47.6 LAB L100.1900 150-450 K/mm3 Normal PLT 194 LAB L100.2000 6.2-12.0 fl Normal MPV 10.4 LAB L100.2100 47-70 % High NEUT% 92.5 LAB L100.2200 19-41 % Low LY% 3.6 LAB L100.2300 0-10 % Normal MONO% 3.6 LAB L100.2400 0-5 % Normal EO% 0.1 LAB L100.2500 0-1 % Normal BASO% 0.1 LAB L100.2550 0.0-0.9 % Normal IM GRAN % 0.100 Result Comment: IG% - Immature Granulocytes (promyelocytes, myelocytes and metamyelocytes) > 1% indicates that a LEFT SHIFT is Present. LAB L100.2620 2.0-7.7 X10 3/uL High Absolute Neut 11.5 LAB L100.2720 0.83-4.51 X10 3/ul Low Absolute Lymph 0.44 Performed By: #### L100.0100, L500.4050, L500.4100 #### [facility] [address] [place], [place], [address] COMPREHENSIVE METABOLIC Collected: 03/16/2018 Status: F Source: [facility] 9:38 AM [facility] [place] Order Comment: Order Date: 09/16/17 Order Info: [id number] - CMP Order Info: [id number] - LIPID TYPE CODE TESTS RESULT OUT OF RANGE REFERENCE UNITS LAB L501.0100 74-106 mg/dL Normal GLU 102 Result Comment: Fasting Glucose result from 100 to 125 mg/dL suggests IMPAIRED HOMEOSTASIS per A.D.A. criteria. Please note revised GLUCOSE reference range effective 2017. LAB L501.1000 7-18 mg/dL Normal BUN 13 LAB L501.1100 0.55-1.02 mg/dL Normal CREAT,SERUM 0.62 Result Comment: The validity of the calculated GFR AND GFRAA in patients over 70 years has not been determined. Clinical correlation is essential. LAB L501.1110 >60 mL/min Normal EST GFR 101 Result Comment: Non- GFR Calc LAB L501.1115 >60 mL/min Normal EST GFR - AA 122 Result Comment: GFR Calc LAB L501.1300 10-20 RATIO High BUN/CRE 21.1 LAB L501.1500 6.4-8.2 g/dL T Normal PROT 6.7 LAB L501.1800 3.2-5.0 g/dL Normal ALB 3.6 LAB L501.1950 2.2-4.2 g/dL Normal GLOB 3.1 LAB L501.2000 0.9-2.4 RATIO Normal A/G 1.2 LAB L501.2200 8.5-10.1 mg/dL CA Normal 8.7 LAB L501.4100 15-37 U/L Low AST 10 LAB L501.4305 45-117 U/L Low ALK P 42 LAB L501.4405 13-56 U/L Normal ALT 21 LAB L501.4600 0.20-1.00 mg/dL T Normal BILI 0.60 LAB L501.5300 136-145 mmol/L Low NA 134 LAB L501.5600 3.5-5.1 mmol/L Low K alert 2.5 Result Comment: Critical Result(s) Called at: 13:32:26 03/16/2018 by: [facility] L501.5900 98-107 mmol/L Low CL 94 LAB L501.6100 21.0-32.0 mmol/L Normal CO2 29.0 LAB L501.6200 5-15 Normal GAP 11 Performed By: #### L100.0100, L500.4050, L500.4100 #### [facility] [address] [place], [place], [address] LIPID PROFILE Collected: 03/16/2018 Status: F Source: [place] 9:38 AM [facility] Order Comment: Order Date: 09/16/17 Order Info: [id number] - CMP Order Info: [id number] - LIPID TYPE CODE TESTS RESULT OUT OF RANGE REFERENCE UNITS LAB L501.4900 200 mg/dL Normal CHOL 200 Result Comment: <200 mg/dL Desirable 200-240 mg/dL Borderline >240 mg/dL High Risk LAB L501.5000 mg/dL Normal TRIG 57 Result Comment: The drugs N-Acetylcysteine and Metamizole may falsely depress this assay. Serum Triglycerides Reference Interval Normal <150 mg/dL Borderline high 150 - 199 mg/dL High 200 - 499 mg/dL Very High > or = 500 mg/dL LAB L501.6400 mg/dL Normal HDL 116 Result Comment: The drugs N-Acetylcysteine and Metamizole may falsely depress this assay. Reference Range HDL <40 mg/dL Low HDL Cholesterol HDL >or= 60 mg/dL High HDL Cholesterol LAB L501.6500 0-130 mg/dL Normal LDL 73 LAB L501.6600 5-40 mg/dL Normal VLDL 11 Performed By: #### L100.0100, L500.4050, L500.4100 #### [facility] [address] [place], [place], [address] BASIC METABOLIC Collected: 02/24/2018 Status: F Source: [place] PROFILE (BMP) 11:59 AM [facility] [place] TYPE CODE TESTS RESULT OUT OF RANGE REFERENCE UNITS LAB L501.0100 74-106 mg/dL Normal GLU 92 Result Comment: Please note revised GLUCOSE reference range effective 2017. LAB L501.1000 7-18 mg/dL Normal BUN 11 LAB L501.1100 0.55-1.02 mg/dL Normal CREAT,SERUM 0.80 Result Comment: The validity of the calculated GFR AND GFRAA in patients over 70 years has not been determined. Clinical correlation is essential. LAB L501.1110 >60 mL/min Normal EST GFR 74 Result Comment: Non- GFR Calc LAB L501.1115 >60 mL/min Normal EST GFR - AA 90 Result Comment: GFR Calc LAB L501.1300 10-20 RATIO Normal BUN/CRE 13.7 LAB L501.2200 8.5-10.1 mg/dL CA Normal 8.9 LAB L501.5300 136-145 mmol/L Low NA 135 LAB L501.5600 3.5-5.1 mmol/L K Normal 3.7 Result Comment: Slight Hemolysis, Result may be falsely increased. LAB L501.5900 98-107 mmol/L Normal CL 99 LAB L501.6100 21.0-32.0 mmol/L Normal CO2 25.0 LAB L501.6200 5-15 Normal GAP 11 Performed By: #### L500.2500 #### [facility] [address] [place], [place], [address] CBC W/DIFF, AUTOMATED Collected: 02/24/2018 Status: F Source: [place] 11:59 AM [facility] [place] TYPE CODE TESTS RESULT OUT OF RANGE REFERENCE UNITS LAB L100.1000 4.4-11.0 K/mm3 Normal WBC 6.7 LAB L100.1200 4.2-5.4 M/mm3 Normal RBC 4.31 LAB L100.1300 12.0-15.0 g/dl Normal HGB 12.0 LAB L100.1400 37-47 % Normal HCT 37.7 LAB L100.1500 81-99 fL Normal MCV 87.5 LAB L100.1600 27.0-32.0 pg Normal MCH 27.8 LAB L100.1700 32-36 g/gl Low MCHC 31.8 LAB L100.1810 11.6-14.6 % High RDW CV 15.8 LAB L100.1820 35.1-43.9 fl High RDW SD 50.5 LAB L100.1900 150-450 K/mm3 Normal PLT 191 LAB L100.2000 6.2-12.0 fl Normal MPV 11.0 LAB L100.2100 47-70 % High NEUT% 77.5 LAB L100.2200 19-41 % Low LY% 9.8 LAB L100.2300 0-10 % High MONO% 11.3 LAB L100.2400 0-5 % Normal EO% 0.6 LAB L100.2500 0-1 % Normal BASO% 0.5 LAB L100.2550 0.0-0.9 % Normal IM GRAN % 0.300 Result Comment: IG% - Immature Granulocytes (promyelocytes, myelocytes and metamyelocytes) > 1% indicates that a LEFT SHIFT is Present. LAB L100.2620 2.0-7.7 X10 3/uL Normal Absolute Neut 5.2 LAB L100.2720 0.83-4.51 X10 3/ul Low Absolute Lymph 0.65 Performed By: #### L100.0100 #### [facility] [address] [place], [address] BMP WITH EGFR Collected: 02/09/2018 Status: F Source: [place] 11:[address] [facility] REPOSITORY TYPE CODE TESTS RESULT OUT OF RANGE REFERENCE UNITS LAB BMP with eGFR(LOINC) BMP with eGFR Result Comment: BASIC METABOLIC PANEL LAB SODIUM(LOINC) 136 - 145 mmol/l SODIUM 136 LAB POTASSIUM(LOINC) 3.5 - 5.1 mmol/L POTASSIUM 4.1 LAB CHLORIDE(LOINC) 98 - 107 mmol/L CHLORIDE 102 LAB CO2(LOINC) 21.0 - mmol/L 31.0 CO2 29.1 LAB GLUCOSE(LOINC) 74 - 106 mg/dl GLUCOSE 88 LAB BUN(LOINC) 6 - 20 mg/dl BUN 11 LAB CREATININE(LOINC) 0.6 - 1.2 mg/dl CREATININE 0.8 LAB CALCIUM(LOINC) 8.6 - mg/dl 10.2 CALCIUM 9.2 LAB ANION GAP(LOINC) 10 - 20 mmol/L ANION Low GAP 9 LAB AGE(LOINC) years AGE 73 LAB eGFR(LOINC) 60 - 999 ML/MINUTE eGFR >60 LAB eGFR(AA)(LOINC) 60 - 999 ML/MINUTE eGFR(AA) >60 Result Comment: ACCORDING TO THE NATIONAL KIDNEY DISEASE EDUCATION PROGRAM(NKDE), A NORMAL eGFR IS A VALUE GREATER THAN OR EQUAL TO 60 ML/MIN/1.73 SQ METERS. CHRONIC KIDNEY DISEASE: <60mL/MIN/1.73 SQ METERS KIDNEY FAILURE: <15mL/MIN/1.73 SQ METERS THIS TEST SHOULD ONLY BE USED FOR PATIENTS 18 YEARS OF AGE AND OLDER. Performed By: #### [id number] #### [place] [address] ELECTROLYTES-PANEL 4 Collected: Status: F Source: [place] 01/26/2018 10:01 AM [facility] REPOSITORY TYPE CODE TESTS RESULT OUT OF RANGE REFERENCE UNITS LAB ELECTROLYTE S-PANEL 4(LOINC) ELECTROLYTES -PANEL 4 Result Comment: ELECTROLYTES LAB SODIUM(LOINC) 136 - 145 mmol/l SODIUM 136 LAB POTASSIUM(LOINC) 3.5 - 5.1 mmol/L POTASSIUM 4.8 LAB CHLORIDE(LOINC) 98 - 107 mmol/L CHLORIDE 105 LAB CO2(LOINC) 21.0 - mmol/L 31.0 CO2 26.8 Performed By: #### [id number] #### [place] [id number] HISTORY AND PHYSICAL Observed: 01/21/2018 Status: F Source: [facility] EXAM 12:06 PM [facility] HISTORY & PHYSICAL NAME ACCOUNT SEX AGE ADMIT DISCHARGE PT MED. RECORD# NUMBER DATE DATE TYPE TRISHA [id number] F 73 01/08/18 01/09/18 2 DAVIDSON Goel [id number] ROOM: 310MO DATE OF : 45 DICTATING PHYSICIAN: Neisha Medina CHIEF COMPLAINT: Low potassium. HISTORY OF PRESENT ILLNESS: This is a 73-year-old female who states she went to her primary care physician with complaint of weakness. He had blood drawn and let her know that she had severe hypokalemia and sent her to the emergency room. In the emergency room blood work was repeated with potassium critically low at 2.2. She had been on hydrochlorothiazide and quit taking it 2 days prior. She was started on K-rider; however, she was unable to tolerate it due to severe burning feeling in her veins and it had to be stopped. She was given liquid potassium and admitted for observation status. Potassium was repeated this morning and was 2.8. She was given 2 doses of p.o. potassium and it was repeated at 3.1. She denies any hypertension. She states she was on the hydrochlorothiazide for chronic leg swelling. She does have a history of MS. PAST MEDICAL HISTORY: (1) She states on her annual blood work she had low normal potassium in the past. (2) Chronic leg swelling. (3) Multiple sclerosis diagnosed about 12 years ago. (4) Osteoporosis. (5) Chronic constipation. PAST SURGICAL HISTORY: Denies any surgeries in the past. MEDICATIONS: (1) Fosamax 70 mg q week. (2) Amitriptyline 25 mg q p.m. (3) Famotidine 20 mg twice daily. (4) Hydrocodone/acetaminophen 1 tablet q 4-6 hours p.r.n. (5) Lac-Hydrin twice daily. (6) Ocrevus 30 mg /1 mL IV as at home. (7) Zofran 4 mg q 4 hours p.r.n. (8) Requip 2 mg in a.m. 1 mg in the afternoon and 2 mg q p.m. (9) Senokot S 2 tablets q 12 hours. (10) Stool softener 250 mg q p.m. (11) Vitamin D3 2000 international units daily. (12) Xanax 0.5 mg 3 times daily. (13) Bupropion extended release 150 mg daily. (14) EpiPen p.r.n. ALLERGIES: No known drug allergies. FAMILY HISTORY: Father at age 76 with prostate cancer. Mother at age 101 with congestive heart failure. Three brothers have had prostate cancer. SOCIAL HISTORY: The patient is . She has no children. She quit smoking in 1977. She does not drink alcohol. REVIEW OF SYSTEMS: She has not had any recent acute illness. She has had some Page 1 of 3 DAVIDSON DELACRUZ History & Physical generalized weakness, she thought it was worsening. No fever, chills, or respiratory infections. No chest pain. No shortness of breath. No abdominal pain. No nausea, vomiting, or diarrhea. She does get constipated and takes a stool regimen. No bowel or bladder changes. PHYSICAL EXAMINATION GENERAL APPEARANCE: The patient was lying in bed in no acute distress. She is alert, pleasant and cooperative. VITAL SIGNS: Blood pressure 102/84, heart rate 87, respirations 15, temperature 98.1, oxygen saturation 95% on room air. Weight 101 pounds with a BMI of 18.47. HEENT: Unremarkable. NECK: Supple. No evidence of mass. No JVD. No bruit. LUNGS: Normal respiratory effort. Equal lung expansion. Clear to auscultation bilaterally. HEART: Regular rate and rhythm. ABDOMEN: Soft and nontender. EXTREMITIES: Free of edema. NEUROLOGIC: She is alert and oriented, able to answer questions appropriately. DIAGNOSTIC DATA: On admission white count was 11.8, hemoglobin 10.5, hematocrit 32.3. White count repeated this morning 10.1. On admission sodium 135, potassium 2.2, BUN 14, creatinine 1.1. Creatinine this morning was 0.8 with potassium 2.8, repeated after potassium supplementation was 3.1. IMPRESSION/PLAN: 1. Severe hypokalemia secondary to diuretics. Hydrochlorothiazide was stopped by her at home 2 days ago and should avoid in the future. Potassium was replaced and she will go home on potassium chloride 20 mEq daily. Follow up with Dr. Nesha Bhagat on January 15 at 2:20 p.m. Recommend repeating the potassium level and family practitioner can order this as an outpatient. 2. Multiple sclerosis, complicating factor with the advanced weakness. 3. All other medical conditions appear stable at present. Above was discussed with the patient. All of her questions were answered. She may be discharged home today. Increase activity as tolerated. The only new prescription is potassium chloride 20 mEq daily until seen by her primary care physician with a repeat lab draw. Page 2 of 3 DAVIDSON DELACRUZ History & Physical Dictated by yoanna Sharpe for Neisha Medina M.D. I evaluated the patient myself, the above is accurate reflection of E&M done by me Juan Medina M.D. Dictated By: Neisha Medina MD 01/09/18 13:54 JOB #: [id number] Transcribed By: ashley 01/09/18 19:33 Electronically signed by: MEG MEDINA MD 01/21/18 12:06 Update to H&P: [ ] No changes: I have examined the patient and reviewed the H&P and there are no changes. [ ] As previously dictated with the following changes: PHYSICIAN SIGNATURE: TIME: DATE: Page 3 of 3 DAVIDSON DELACRUZ History & Physical BMP WITH EGFR Collected: 01/19/2018 Status: C Source: [facility] 7:[address] [facility] REPOSITORY TYPE CODE TESTS RESULT OUT OF RANGE REFERENCE UNITS LAB BMP with eGFR(LOINC) BMP with eGFR Result Comment: BASIC METABOLIC PANEL LAB SODIUM(LOINC) 136 - 145 mmol/l SODIUM 137 LAB POTASSIUM(LOINC) 3.5 - 5.1 mmol/L POTASSIUM 3.8 LAB CHLORIDE(LOINC) 98 - 107 mmol/L CHLORIDE 106 LAB CO2(LOINC) 21.0 - mmol/L 31.0 CO2 25.5 LAB GLUCOSE(LOINC) 74 - 106 mg/dl GLUCOSE 85 LAB BUN(LOINC) 6 - 20 mg/dl BUN 14 LAB CREATININE(LOINC) 0.6 - 1.2 mg/dl CREATININE 0.9 LAB CALCIUM(LOINC) 8.6 - mg/dl 10.2 CALCIUM 8.7 LAB ANION GAP(LOINC) 10 - 20 mmol/L ANION Low GAP 9 LAB AGE(LOINC) years AGE 73 LAB eGFR(LOINC) 60 - 999 ML/MINUTE eGFR 61 LAB eGFR(AA)(LOINC) 60 - 999 ML/MINUTE eGFR(AA) 74 Result Comment: ACCORDING TO THE NATIONAL KIDNEY DISEASE EDUCATION PROGRAM(NKDE), A NORMAL eGFR IS A VALUE GREATER THAN OR EQUAL TO 60 ML/MIN/1.73 SQ METERS. CHRONIC KIDNEY DISEASE: <60mL/MIN/1.73 SQ METERS KIDNEY FAILURE: <15mL/MIN/1.73 SQ METERS THIS TEST SHOULD ONLY BE USED FOR PATIENTS 18 YEARS OF AGE AND OLDER. Performed By: #### [id number] #### [facility],[address] [place] [address] CMP WITH EGFR Collected: 01/19/2018 Status: F Source: [facility] 7:30 [facility] REPOSITORY TYPE CODE TESTS RESULT OUT OF RANGE REFERENCE UNITS LAB CMP with eGFR(LOINC) CMP with eGFR Result Comment: COMPREHENSIVE METABOLIC PANEL LAB SODIUM(LOINC) 136 - 145 mmol/l SODIUM 137 LAB POTASSIUM(LOINC) 3.5 - 5.1 mmol/L POTASSIUM 3.8 LAB CHLORIDE(LOINC) 98 - 107 mmol/L CHLORIDE 106 LAB CO2(LOINC) 21.0 - mmol/L 31.0 CO2 25.5 LAB GLUCOSE(LOINC) 74 - 106 mg/dl GLUCOSE 85 LAB BUN(LOINC) 6 - 20 mg/dl BUN 14 LAB CREATININE(LOINC) 0.6 - 1.2 mg/dl CREATININE 0.9 LAB AST/SGOT(LOINC) 13 - 39 U/L AST/SGOT 19 LAB ALK PHOS(LOINC) 38 - 126 U/L ALK PHOS 52 LAB CALCIUM(LOINC) 8.6 - mg/dl 10.2 CALCIUM 8.7 LAB TOTAL PROTEIN(LOINC) 6.4 - 8.3 g/dl TOTAL Low PROTEIN 6.3 LAB ALBUMIN(LOINC) 3.4 - 4.8 g/dL ALBUMIN 3.4 LAB GLOBULIN(LOINC) 1.5 - 3.8 G/DL GLOBULIN 2.9 LAB A/G RATIO(LOINC) 0.9 - 1.6 A/G RATIO 1.2 LAB TOTAL BILI(LOINC) 0.0 - 1.5 mg/dl TOTAL BILI 0.3 LAB B/C RATIO(LOINC) 0 - 30 ratio B/C RATIO 16 LAB ALT/SGPT(LOINC) 8 - 35 U/L ALT/SGPT 17 LAB ANION GAP(LOINC) 10 - 20 mmol/L ANION Low GAP 9 LAB AGE(LOINC) years AGE 73 LAB eGFR(LOINC) 60 - 999 ML/MINUTE eGFR >60 LAB eGFR(AA)(LOINC) 60 - 999 ML/MINUTE eGFR(AA) >60 Result Comment: ACCORDING TO THE NATIONAL KIDNEY DISEASE EDUCATION PROGRAM(NKDE), A NORMAL eGFR IS A VALUE GREATER THAN OR EQUAL TO 60 ML/MIN/1.73 SQ METERS. CHRONIC KIDNEY DISEASE: <60mL/MIN/1.73 SQ METERS KIDNEY FAILURE: <15mL/MIN/1.73 SQ METERS THIS TEST SHOULD ONLY BE USED FOR PATIENTS 18 YEARS OF AGE AND OLDER. Performed By: #### [id number] #### [facility],[address] [place] [address] CORTISOL TOTAL, SERUM Collected: 01/19/2018 Status: F Source: [facility] [QUEST] 7:[address] [facility] REPOSITORY TYPE CODE TESTS RESULT OUT OF REFERENCE UNITS RANGE LAB CORTISOL TOTAL, SERUM [QUEST](LOINC) CORTISOL TOTAL, SERUM [QUEST] Result Comment: _CORTISOL TOTAL, SERUM_ CORTISOL, TOTAL Reported: 01/21/2018 02:55 Status=F TEST RESULT FLAG RANGE UNITS CORTISOL, TOTAL 14.4 mcg/dL 01/21/18.0306.rfl.COMPLETE.[facility] .2143-6 Unable to flag abnormal result(s), please refer to reference range(s) below: Reference Range: >17 Years: AM: 4.0-22.0 mcg/dL PM: 3.0-17.0 mcg/dL Test Performed by [facility], [facility], [address] [place] [id number] Emir Marcelo M.D., Ph.D., Director of Laboratories , [facility] [id number] Performed By: #### [id number] #### [facility],[address] [place] [address] BASIC METABOLIC Collected: 01/14/2018 Status: F Source: [place] PROFILE (BMP) 3:46 PM [facility] Order Comment: Order Date: 01/09/18 Order Info: 0667-1 - BMP TYPE CODE TESTS RESULT OUT OF RANGE REFERENCE UNITS LAB L501.0100 74-106 mg/dL Normal GLU 86 Result Comment: Please note revised GLUCOSE reference range effective 2017. LAB L501.1000 7-18 mg/dL Normal BUN 14 LAB L501.1100 0.55-1.02 mg/dL High CREAT,SERUM 1.14 Result Comment: The validity of the calculated GFR AND GFRAA in patients over 70 years has not been determined. Clinical correlation is essential. LAB L501.1110 >60 mL/min Low EST GFR 50 Result Comment: Non- GFR Calc LAB L501.1115 >60 mL/min Normal EST GFR - AA 60 Result Comment: GFR Calc LAB L501.1300 10-20 RATIO Normal BUN/CRE 12.3 LAB L501.2200 8.5-10.1 mg/dL CA Normal 8.7 LAB L501.5300 136-145 mmol/L NA Normal 141 LAB L501.5600 3.5-5.1 mmol/L Low K alert 2.6 Result Comment: Critical Result(s) Called at: 19:35:03 01/14/2018 by: AVNI PEREZ to Dr. Hernandez LAB L501.5900 98-107 mmol/L High CL 108 LAB L501.6100 21.0-32.0 mmol/L Normal CO2 26.0 LAB L501.6200 5-15 Normal 7 GAP Performed By: #### L500.2500 #### [facility] [address] [facility], [address] EMERGENCY REPORT Observed: 01/13/2018 Status: F Source: [facility] 12:01 AM [facility] EMERGENCY ROOM REPORT NAME ACCOUNT SEX AGE ADMIT DISCHARGE PT MED. RECORD# NUMBER DATE DATE TYPE TRISHA [id number] F 73 01/08/18 01/09/18 2 DAVIDSON Goel [id number] ROOM: 310MO DATE OF : 1945 DICTATING PHYSICIAN: Tj Dukes ADDENDUM: DIAGNOSTIC DATA: White count is 11.8, hemoglobin 10.5, hematocrit 32.3. Platelet count 292,000. Sodium 135, potassium is very low at 2.2, chloride 98, CO2 30.3, BUN 14, creatinine 1.1. Glucose 107. AST 22, ALT 17, alk phos 48. Total bilirubin is 0.4. Anion gap is 9. EMERGENCY DEPARTMENT COURSE AND TREATMENT: I did give the patient 40 mEq potassium p.o. and we started IV potassium 40 mEq and 10 mEq per hour. It has been burning her arm, so we did put some lidocaine in there. She still had some burning, so at this point the IV infusion and potassium is going slow. DIAGNOSES: 1. Hypokalemia. 2. Generalized weakness. PLAN/DISPOSITION: She has been weak to the point of falling, is what her has told me. So, I felt that she was symptomatic and I called Dr. Medina and he has admitted her to his service. I discussed this with the patient and family, and they are agreeable. Dictated By: Tj Dukes DO 01/08/18 19:11 JOB #: [id number] Transcribed By: meghan 01/10/18 10:20 Electronically signed by: E-Sign: Dr. Tj Dukes D.O. 01/13/18 00:01 Page 1 of 1 DAVIDSON DELACRUZ Emergency Room Report POTASSIUM Collected: 01/09/2018 Status: F Source: [facility] 12:[address] [facility] REPOSITORY TYPE CODE TESTS RESULT OUT OF REFERENCE UNITS RANGE LAB POTASSIUM( 3.5 - 5.1 mmol/L LOINC) Low POTASSIUM 3.1 Performed By: #### [id number] #### [facility],[address] [place] [address] CBC Collected: 01/09/2018 Status: F Source: [facility] 4:[address] [facility] REPOSITORY TYPE CODE TESTS RESULT OUT OF RANGE REFERENCE UNITS LAB CBC(LOINC) CBC Result Comment: CBC-COMPLETE BLOOD COUNT LAB WBC(LOINC) 4.5 - 10.8 x 10EE3/UL WBC 10.4 LAB RBC(LOINC) 4.10 - x 10EE6/UL 5.30 RBC Low 3.92 LAB HEMOGLOBIN(LOINC 12.0 - g/dl ) 16.0 Low HEMOGLOBIN 10.6 LAB HEMATOCRIT(LOINC 34.0 - % ) 46.0 Low HEMATOCRIT 32.2 LAB MCV(LOINC) 80 - 99 fl MCV 82 LAB MCH(LOINC) 27 - 33 pg MCH 27 LAB MCHC(LOINC) 32 - 36 X10 3 MCHC 33 LAB RDW/CV(LOINC) 12.0 - % 15.6 RDW/CV 14.5 LAB PLATELET(LOINC) 150 - 450 x10EE3/UL PLATELET 270 LAB MPV(LOINC) 6.6 - 10.5 fl MPV 8.4 Result Comment: AUTOMATED DIFFERENTIAL LAB NEUT %(LOINC) 46.0 - 76.0 % NEUT % High 81.2 LAB LYMPH %(LOINC) 20.0 - 45.0 % Low LYMPH % 6.2 LAB MONOS %(LOINC) 0.0 - 10.0 % MONOS % High 11.4 LAB EO %(LOINC) 0.0 - 7.0 % EO % 1.0 LAB BASO %(LOINC) 0.0 - 2.0 % BASO % 0.2 LAB Lymph #(LOINC) 0.80 - 2.80 x10EE3/U Low L Lymph # 0.60 LAB Neut #(LOINC) 1.50 - 7.10 x10EE3/U L Neut # High 8.50 LAB [place] #(LOINC) 0.20 - 1.00 x10EE3/U L [place] # High 1.20 LAB EO #(LOINC) 0.00 - 0.50 x10EE3/U L EO # 0.10 LAB Baso #(LOINC) 0.00 - 0.10 x10EE3/U L Baso # 0.00 LAB MANUAL DIFF(LOINC) MANUAL DIFF N/A LAB MORPHOLOGY(LOINC ) MORPHOLOGY N/A Result Comment: {CD] Performed By: #### [id number] #### [facility],[address] [place] [address] BMP WITH EGFR Collected: 01/09/2018 Status: F Source: [facility] 4:[address] [facility] REPOSITORY TYPE CODE TESTS RESULT OUT OF RANGE REFERENCE UNITS LAB BMP with eGFR(LOINC) BMP with eGFR Result Comment: BASIC METABOLIC PANEL LAB SODIUM(LOINC) 136 - 145 mmol/l SODIUM 139 LAB POTASSIUM(LOINC) 3.5 - 5.1 mmol/L Low Alert POTASSIUM 2.8 Result Comment: { CALLED TO AYAH @0535/ADL { READ BACK BY AYAH RA@0560 LAB CHLORIDE(LOINC) 98 - 107 mmol/L CHLORIDE 105 LAB CO2(LOINC) 21.0 - mmol/L 31.0 CO2 26.8 LAB GLUCOSE(LOINC) 74 - 106 mg/dl GLUCOSE High 109 LAB BUN(LOINC) 6 - 20 mg/dl BUN 11 LAB CREATININE(LOINC) 0.6 - 1.2 mg/dl CREATININE 0.8 LAB CALCIUM(LOINC) 8.6 - mg/dl 10.2 CALCIUM 8.7 LAB ANION GAP(LOINC) 10 - 20 mmol/L ANION GAP 10 LAB AGE(LOINC) years AGE 73 LAB eGFR(LOINC) 60 - 999 ML/MINUTE eGFR >60 LAB eGFR(AA)(LOINC) 60 - 999 ML/MINUTE eGFR(AA) >60 Result Comment: ACCORDING TO THE NATIONAL KIDNEY DISEASE EDUCATION PROGRAM(NKDE), A NORMAL eGFR IS A VALUE GREATER THAN OR EQUAL TO 60 ML/MIN/1.73 SQ METERS. CHRONIC KIDNEY DISEASE: <60mL/MIN/1.73 SQ METERS KIDNEY FAILURE: <15mL/MIN/1.73 SQ METERS THIS TEST SHOULD ONLY BE USED FOR PATIENTS 18 YEARS OF AGE AND OLDER. Performed By: #### [id number] #### [facility],[address] [place] [address] CBC Collected: 01/08/2018 Status: F Source: [facility] 3:[address] [facility] REPOSITORY TYPE CODE TESTS RESULT OUT OF RANGE REFERENCE UNITS LAB CBC(LOINC) CBC Result Comment: CBC-COMPLETE BLOOD COUNT LAB WBC(LOINC) 4.5 - 10.8 x 10EE3/UL WBC High 11.8 LAB RBC(LOINC) 4.10 - x 10EE6/UL 5.30 RBC Low 3.91 LAB HEMOGLOBIN(LOINC 12.0 - g/dl ) 16.0 Low HEMOGLOBIN 10.5 LAB HEMATOCRIT(LOINC 34.0 - % ) 46.0 Low HEMATOCRIT 32.3 LAB MCV(LOINC) 80 - 99 fl MCV 83 LAB MCH(LOINC) 27 - 33 pg MCH 27 LAB MCHC(LOINC) 32 - 36 X10 3 MCHC 32 LAB RDW/CV(LOINC) 12.0 - % 15.6 RDW/CV 14.4 LAB PLATELET(LOINC) 150 - 450 x10EE3/UL PLATELET 292 LAB MPV(LOINC) 6.6 - 10.5 fl MPV 8.8 Result Comment: AUTOMATED DIFFERENTIAL LAB NEUT %(LOINC) 46.0 - 76.0 % NEUT % High 84.4 LAB LYMPH %(LOINC) 20.0 - 45.0 % Low LYMPH % 3.9 LAB MONOS %(LOINC) 0.0 - 10.0 % MONOS % High 10.4 LAB EO %(LOINC) 0.0 - 7.0 % EO % 0.9 LAB BASO %(LOINC) 0.0 - 2.0 % BASO % 0.4 LAB Lymph #(LOINC) 0.80 - 2.80 x10EE3/U Low L Lymph # 0.50 LAB Neut #(LOINC) 1.50 - 7.10 x10EE3/U L Neut # High 10.00 LAB [place] #(LOINC) 0.20 - 1.00 x10EE3/U L [place] # High 1.20 LAB EO #(LOINC) 0.00 - 0.50 x10EE3/U L EO # 0.10 LAB Baso #(LOINC) 0.00 - 0.10 x10EE3/U L Baso # 0.00 LAB MANUAL DIFF(LOINC) MANUAL DIFF N/A LAB MORPHOLOGY(INC ) MORPHOLOGY N/A Result Comment: {CD] Performed By: #### [id number] #### [facility],[address] [place] [address] CMP WITH EGFR Collected: 01/08/2018 Status: F Source: [facility] 3:[address] [facility] REPOSITORY TYPE CODE TESTS RESULT OUT OF RANGE REFERENCE UNITS LAB CMP with eGFR(INC) CMP with eGFR Result Comment: COMPREHENSIVE METABOLIC PANEL LAB SODIUM(LOINC) 136 - 145 mmol/l Low SODIUM 135 LAB POTASSIUM(LOINC) 3.5 - 5.1 mmol/L Low Alert POTASSIUM 2.2 Result Comment: { CALLED TO ER AT 1705, RA 1700 { READ BACK BY BRANNON TO CWB LAB CHLORIDE(LOINC) 98 - 107 mmol/L CHLORIDE 98 LAB CO2(LOINC) 21.0 - mmol/L 31.0 CO2 30.3 LAB GLUCOSE(LOINC) 74 - 106 mg/dl GLUCOSE High 107 LAB BUN(LOINC) 6 - 20 mg/dl BUN 14 LAB CREATININE(LOINC) 0.6 - 1.2 mg/dl CREATININE 1.1 LAB AST/SGOT(LOINC) 13 - 39 U/L AST/SGOT 22 LAB ALK PHOS(LOINC) 38 - 126 U/L ALK PHOS 48 LAB CALCIUM(LOINC) 8.6 - mg/dl 10.2 CALCIUM 8.9 LAB TOTAL PROTEIN(LOINC) 6.4 - 8.3 g/dl TOTAL Low PROTEIN 6.1 LAB ALBUMIN(LOINC) 3.4 - 4.8 g/dL ALBUMIN 3.4 LAB GLOBULIN(LOINC) 1.5 - 3.8 G/DL GLOBULIN 2.7 LAB A/G RATIO(LOINC) 0.9 - 1.6 A/G RATIO 1.3 LAB TOTAL BILI(LOINC) 0.0 - 1.5 mg/dl TOTAL BILI 0.4 LAB B/C RATIO(LOINC) 0 - 30 ratio B/C RATIO 13 LAB ALT/SGPT(LOINC) 8 - 35 U/L ALT/SGPT 17 LAB ANION GAP(LOINC) 10 - 20 mmol/L ANION Low GAP 9 LAB AGE(LOINC) years AGE 73 LAB eGFR(LOINC) 60 - 999 ML/MINUTE eGFR Low 49 LAB eGFR(AA)(LOINC) 60 - 999 ML/MINUTE eGFR(AA) Low 59 Result Comment: ACCORDING TO THE NATIONAL KIDNEY DISEASE EDUCATION PROGRAM(NKDE), A NORMAL eGFR IS A VALUE GREATER THAN OR EQUAL TO 60 ML/MIN/1.73 SQ METERS. CHRONIC KIDNEY DISEASE: <60mL/MIN/1.73 SQ METERS KIDNEY FAILURE: <15mL/MIN/1.73 SQ METERS THIS TEST SHOULD ONLY BE USED FOR PATIENTS 18 YEARS OF AGE AND OLDER. Performed By: #### [id number] #### [facility],[address] [place] [address] CBC W/DIFF, AUTOMATED Collected: 01/08/2018 Status: F Source: [place] 10:41 AM [facility] [place] [facility] [place] Order Comment: Order Date: 01/08/18 Order Info: 0184-1 - CBCD TYPE CODE TESTS RESULT OUT OF RANGE REFERENCE UNITS LAB L100.1000 4.4-11.0 K/mm3 Normal WBC 10.6 LAB L100.1200 4.2-5.4 M/mm3 Low RBC 4.04 LAB L100.1300 12.0-15.0 g/dl Low HGB 10.6 LAB L100.1400 37-47 % Low HCT 34.8 LAB L100.1500 81-99 fL Normal MCV 86.1 LAB L100.1600 27.0-32.0 pg Low MCH 26.2 LAB L100.1700 32-36 g/gl Low MCHC 30.5 LAB L100.1810 11.6-14.6 % Normal RDW CV 14.4 LAB L100.1820 35.1-43.9 fl High RDW SD 45.3 LAB L100.1900 150-450 K/mm3 Normal PLT 288 LAB L100.2000 6.2-12.0 fl Normal MPV 10.0 LAB L100.2100 47-70 % High NEUT% 83.8 LAB L100.2200 19-41 % Low LY% 4.6 LAB L100.2300 0-10 % High MONO% 10.7 LAB L100.2400 0-5 % Normal EO% 0.7 LAB L100.2500 0-1 % Normal BASO% 0.1 LAB L100.2550 0.0-0.9 % Normal IM GRAN % 0.100 Result Comment: IG% - Immature Granulocytes (promyelocytes, myelocytes and metamyelocytes) > 1% indicates that a LEFT SHIFT is Present. LAB L100.2620 2.0-7.7 X10 3/uL High Absolute Neut 8.9 LAB L100.2720 0.83-4.51 X10 3/ul Low Absolute Lymph 0.49 Performed By: #### L100.0100, L500.2500, L501.9520 #### [facility] [address] [place], [place], [id number] BASIC METABOLIC Collected: 01/08/2018 Status: F Source: [place] PROFILE ([facility]) 10:41 AM [facility] Order Comment: Order Date: 01/08/18 Order Info: 0667-1 - BMP Order Info: 3016-3 - TSH TYPE CODE TESTS RESULT OUT OF RANGE REFERENCE UNITS LAB L501.0100 74-106 mg/dL High GLU 113 Result Comment: Fasting Glucose result from 100 to 125 mg/dL suggests IMPAIRED HOMEOSTASIS per A.D.A. criteria. Please note revised GLUCOSE reference range effective 2017. LAB L501.1000 7-18 mg/dL Normal BUN 13 LAB L501.1100 0.55-1.02 mg/dL High CREAT,SERUM 1.11 Result Comment: The validity of the calculated GFR AND GFRAA in patients over 70 years has not been determined. Clinical correlation is essential. LAB L501.1110 >60 mL/min Low EST GFR 51 Result Comment: Non- GFR Calc LAB L501.1115 >60 mL/min Normal EST GFR - AA 62 Result Comment: GFR Calc LAB L501.1300 10-20 RATIO Normal BUN/CRE 11.7 LAB L501.2200 8.5-10.1 mg/dL Low CA 8.1 LAB L501.5300 136-145 mmol/L NA Normal 137 LAB L501.5600 3.5-5.1 mmol/L Low K alert 2.2 LAB L501.5900 98-107 mmol/L CL Normal 101 LAB L501.6100 21.0-32.0 mmol/L Normal CO2 29.0 LAB L501.6200 5-15 Normal GAP 7 Performed By: #### L100.0100, L500.2500, L501.9520 #### [facility] [address] [facility] [place], [place], [address] THYROID STIM HORMONE Collected: 01/08/2018 Status: F Source: [place] ([facility]) 10:41 AM [facility] [place] [place] Order Comment: Order Date: 01/08/18 Order Info: [id number] - BMP Order Info: 3016-3 - TSH TYPE CODE TESTS RESULT OUT OF RANGE REFERENCE UNITS LAB L501.9520 0.358-3.74 uIU/mL Normal TSH 1.91 Performed By: #### L100.0100, L500.2500, L501.9520 #### [facility] [address] [place], [place], [address] IMMUNODEFICIENCY CDC Collected: 12/30/2017 Status: F Source: [place] 8:35 AM [facility] REPOSITORY TYPE CODE TESTS RESULT OUT OF RANGE REFERENCE UNITS LAB HCD3P 60-89 % CD3+ T 67 Cell % Result Comment: Specimen age is outside of the required limit of the IVD status reagent employed in this test. However, studies have been performed by the Flow Cytometry laboratory at the [facility] showing acceptable correlations within 48 hours of draw. LYMPHOCYTE VIABILITY WAS 100% LAB HCD3N 958-2388 Cells/uL 343 Low CD3+ T Cell No. LAB HCD4P 34-61 % 55 CD4+CD3+ T Cell % LAB HCD4N 533-1674 Cells/uL 282 Low CD4+CD3+ T Cell No. LAB HCD8P 10-41 % 11 CD3+CD8+ T Cell % LAB HCD8N 175-958 Cells/uL 54 Low CD3+CD8+ T Cell No. LAB HCD19P 5-22 % 0 Low CD19+ B Cell % LAB HCD19N 75-660 Cells/uL 0 Low CD19+ B Cell No. LAB HNKP 5-25 % 32 High NK Cell % LAB HNKN 102-565 Cells/uL 166 NK Cell No. LAB H48RAT 1.10-3.25 5.20 High CD4/CD8 Ratio LAB HCOMNT Clinical interpretation of Immunodef. lymphocyte subsets Comment must be made with caution. Relative and absolute values may be profoundly affected by immunosuppressive or cytotoxic therapy, and be abnormal in a wide variety of infectious, inflammatory, autoimmune and neoplastic disorders. Result Comment: The following number of cluster designated antibodies were used for the definition of the above reported populations: CD3, CD4, CD8, CD16, CD19, and CD56. This test was developed and its performance characteristics determined by [facility] [place] ([facility] It has not been cleared or approved by the FDA. -[facility] is regulated under CLIA as qualified to perform high-complexity testing. This test is used for clinical purposes. It should not be regarded as investigational or for research. Performed By: #### IMMDEF #### [facility] [address], [place] [address] MRI BRAIN WO/W Observed: 11/11/2017 Status: F Source: [place] 9:26 AM [facility] REPOSITORY * * *Final Report* * * DATE OF EXAM: Nov 11 2017 9:26AM WR [id number] - MRI BRAIN WO/W IVCON / PROCEDURE REASON: Multiple sclerosis * * * * Physician Interpretation * * * * EXAMINATION: MRI BRAIN WO/W IVCON CLINICAL HISTORY: Multiple sclerosis. Routine follow-up TECHNIQUE: Brain MRI with demyelinating disease protocol with and without IV gadolinium. MQ: [id number] MR Contrast: Dotarem Contrast Dose: 10 cc Route of Administration: IV COMPARISON: MR brain 10/31/2016 RESULT: MR BRAIN: Parenchymal Findings: There are multiple foci of hyperintensity on FLAIR and T2 within the white matter, compatible with the clinical diagnosis of multiple sclerosis. New T2 Lesions: None Interval Improvement: None. New Enhancing Lesions: None T2 [place] of Disease: Mild. Parenchymal Volume Loss: None. Other Significant Findings/Site(s) of New T2 Lesion(s): None. IMPRESSION: Multiple intracranial white matter lesions compatible with multiple sclerosis. No new T2 lesions and no new enhancing lesions. No significant parenchymal volume loss. Other significant findings: None. Factory Focus Technician: PSCAshley Transcribe Date/Time: Nov 11 2017 10:06A Dictated by : BRAD BUCKNER MD This examination was interpreted and the report reviewed and electronically signed by: JAMES KHAN MD on Nov 11 2017 10:35AM EST [id number] PROGRESS Observed: 11/11/2017 Status: COMPLETED Source: [place] 9:19 AM [facility] REPOSITORY HNO ID: [id number] Author: Shell (Nancy Wilde Service: (none) Author Type: Skylights Assembler Type: Progress Notes Filed: 11/11/2017 9:20 AM Note Text: Radiology Service Progress Note PATIENT NAME: Davidson Delacruz DATE OF SERVICE: November 11, 2017 TIME: 9:19 AM PATIENT IDENTITY VERIFICATION COMPLETED USING TWO (2) METHODS: Patient confirmed name verbally and Date of . PATIENT GENDER DATA: Female. status: : No status: NO. PATIENT RELEVANT IMPLANT DATA REVIEWED: Yes CONTRAST INDUCED NEPHROPATHY RISK FACTORS: Patient age > 60 years CREATININE: Creatinine Date Value Ref Range Status 10/31/2016 0.67 0.58 - 0.96 mg/dL Final 07/13/2013 0.56 (L) 0.70 - 1.40 mg/dL Final 10/05/2012 0.66 (L) 0.70 - 1.40 mg/dL Final Creatinine (POCT) Date Value Ref Range Status 08/18/2014 0.8 0.7 - 1.4 mg/dL Final Comment: Meter ID: [id number] Product Coordinator: [id number] LATHA HOPE Location: [facility] Radiology [address] [place] [address] eGFR-All Other Races Date Value Ref Range Status 10/31/2016 >60 . Final Comment: eGFR (Estimated GFR) Units of measure: mL/min/1.73 meters squared eGFR is derived from the reexpressed MDRD Study equation using the following parameters: serum creatinine, age, gender and race. The creatinine assay has been calibrated to be traceable to IDMS. An eGFR <60 mL/min/1.73m2 for >3 months is consistent with chronic kidney disease. Refer to KDOQI guidelines for clinical interpretation. In patients with unstable renal function, e.g. those with acute kidney injury, the eGFR may not accurately reflect actual GFR. eGFR- Date Value Ref Range Status 10/31/2016 >60 Final P.O.C.T. RESULTS: POC done: Yes, See Lab Tab November 11, 2017 RADIOLOGIST NOTIFIED?: No ALLERGIES: Reviewed and unchanged CONTRAST ALLERGY: NO. PERIPHERAL IV ACCESS: Ambulatory: IV type: A peripheral IV was started in the Left antecubital site with a Angio cath: 22 gauge., Site assessment: Clean,Dry and Intact, Site disposition Discontinued RADIOLOGY DEPARTMENT: MR; Exam(s) Completed: Head: Multiple Sclerosis SIGNED BY: RT Giovanny November 11, 2017 9:19 AM JOHN CREATININE Collected: 11/11/2017 Status: F Source: [place] 8:40 AM [facility] REPOSITORY TYPE CODE TESTS RESULT OUT OF REFERENCE UNITS RANGE LAB WCRET 0.7-1.4 mg/dL John Creatinine 0.8 COMP METABOLIC PANEL Collected: 11/11/2017 Status: F Source: [place] 8:40 AM [facility] REPOSITORY TYPE CODE TESTS RESULT OUT OF REFERENCE UNITS RANGE LAB TP 6.3-8.0 g/dL Protein, Total 6.3 LAB ALB 3.9-4.9 g/dL Albumin 4.2 LAB CA 8.5-10.2 mg/dL Calcium, Total 8.7 LAB TBIL 0.2-1.3 mg/dL Bilirubin, Total 0.3 LAB ALKP 32-117 U/L Alkaline Phosphatase 38 LAB AST 13-35 U/L AST 24 LAB GLU 74-99 mg/dL Low Glucose 70 Result Comment: The [place] Diabetes Association (ADA) provides guidance for cutoff values for fasting glucose and random glucose. The ADA defines fasting as no caloric intake for at least 8 hours. Fas ting plasma glucose results between 100 to 125 mg/dL indicate increased risk for diabetes (prediabetes). Fasting plasma glucose results greater than or equal to 126 mg/dL meet the criteria for diagnosis of diabetes. In the absence of unequivocal hyperglycemia, results should be confirmed by repeat testing. In a patient with classic symptoms of hyperglycemia or hyperglycemic crisis, random plasma glucose results greater than or equal to 200 mg/dL meet the criteria for diagnosis of diabetes. Reference: Standards of Medical Care in Diabetes 2016, [place] Diabetes Association. Diabetes Care. 2016.39(Suppl 1). LAB BUN 7-21 mg/dL BUN 16 LAB CRET 0.58-0.96 mg/dL Creatinine 0.74 LAB NA 136-144 mmol/L Sodium 140 LAB K 3.7-5.1 mmol/L Potassium 3.7 LAB CL 97-105 mmol/L Chloride 98 LAB CO2 22-30 mmol/L CO2 30 LAB AGAP 9-18 mmol/L Anion Gap 12 LAB ALT 7-38 U/L ALT 17 LAB GFRAA eGFR- Amer. >60 LAB GFRNAA . eGFR-All Other Races >60 Result Comment: eGFR (Estimated GFR) Units of measure: mL/min/1.73 meters squared eGFR is derived from the reexpressed MDRD Study equation using the following parameters: serum creatinine, age, gender and race. The creatinine assay has been calibrated to be traceable to IDMS. An eGFR <60 mL/min/1.73m2 for >3 months is consistent with chronic kidney disease. Refer to KDOQI guidelines for clinical interpretation. In patients with unstable renal function, e.g. those with acute kidney injury, the eGFR may not accurately reflect actual GFR. Performed By: #### CMP #### [facility] [address], [place] [address] CBC AND DIFFERENTIAL Collected: 11/11/2017 Status: F Source: [place] 8:39 AM [facility] REPOSITORY TYPE CODE TESTS RESULT OUT OF REFERENCE UNITS RANGE LAB WBC 3.70-11.00 k/uL WBC 5.55 LAB RBC 3.90-5.20 m/uL RBC 4.09 LAB HGB 11.5-15.5 g/dL Low Hemoglobin 11.0 LAB HCT 36.0-46.0 % Hematocrit 37.0 LAB MCV 80.0-100.0 fL MCV 90.5 LAB MCH 26.0-34.0 pG MCH 26.9 LAB MCHC 30.5-36.0 g/dL Low MCHC 29.7 LAB RDWCV 11.5-15.0 % RDW-CV High 16.3 LAB PLTCT 150-400 k/uL Platelet Count 181 LAB MPV 9.0-12.7 fL MPV 11.5 LAB ANEUT % Neut% 73.9 LAB AANEUT 1.45-7.50 k/uL Abs Neut 4.09 LAB ALYMP % Lymph% 12.4 LAB AALYMP 1.00-4.00 k/uL Low Abs Lymph 0.69 LAB AMONO % [place]% 12.3 LAB AAMONO <0.87 k/uL Abs [place] 0.68 LAB AEOS % Eosin% 0.9 LAB AAEOS <0.46 k/uL Abs Eosin 0.05 LAB ABASO % Baso% 0.5 LAB AABASO <0.11 k/uL Abs Baso 0.03 LAB AUNRBC 0 /100 WBC NRBCs 0.0 LAB ABNRBC <0.01 k/uL Absolute nRBC <0.01 LAB DTYP DTYPE Auto Diff Performed By: #### CBCDIF, HFP #### [facility] [address] [place] [address] HEPATIC FUNCTN PANEL Collected: 11/11/2017 Status: F Source: [place] 8:39 AM [facility] REPOSITORY TYPE CODE TESTS RESULT OUT OF REFERENCE UNITS RANGE LAB ALB 3.9-4.9 g/dL Albumin 4.2 LAB TBIL 0.2-1.3 mg/dL Bilirubin, Total 0.3 LAB CBIL <0.2 mg/dL Bilirubin,Conjuga <0.2 pamela LAB ALKP 32-117 U/L Alkaline Phosphatase 38 LAB AST 13-35 U/L AST 21 LAB ALT 7-38 U/L ALT 17 LAB TP 6.3-8.0 g/dL Low Protein, Total 6.2 Performed By: #### CBCDIF, HFP #### [facility] [address] [place] [id number] JCV AB/INDX & REFLEX Collected: 11/11/2017 Status: F Source: [place] 8:39 AM [facility] REPOSITORY TYPE CODE TESTS RESULT OUT OF REFERENCE UNITS RANGE LAB JCVIND 0.30 High JCV Index Value LAB JCVAB3 INDETERMINATE JCV Antibody Result Comment: (NOTE) Index interpretive criteria: <0.20 negative 0.20-0.40 indeterminate >0.40 positive INTERPRETATION Negative: Antibodies to JCV not detected. Indeterminate: Low level reactivity detected, see Inhibition Assay result to follow for the final antibody result. Positive: Antibodies to NILS virus (JCV) detected indicating the patient has been exposed to JCV at an undetermined time. The STRATIFY JCV Antibody Test is an enzyme-linked immunosorbent assay (MARIA DEL ROSARIO) designed to detect JCV antibodies to help identify individuals who have been exposed to the virus. Samples with low level reactivity in the detection assay are retested in a confirmation (inhibition) assay to confirm presence or absence of JCV-specific antibodies. Test Performed at: [facility] [address] [place] [id number] Regine Hernandez MD Performed By: #### EFRAÍN, HFP #### [facility] [address] [place] [address] STRATIFY INHIBITION Collected: 11/11/2017 Status: F Source: [place] *LAB USE 8:39 AM [facility] ONLY* REPOSITORY TYPE CODE TESTS RESULT OUT OF REFERENCE UNITS RANGE LAB JCVAB2 JCV Ab Inhibition FINAL RSLT: POSITIVE Result Comment: (NOTE) INTERPRETATION Positive: Antibodies to NILS virus (JCV) detected indicating the patient has been exposed to JCV at an undetermined time Negative: Antibodies to JCV not detected Test Performed at: [facility] [address] [place] [address] Regine Hernandez MD Performed By: #### EFRAÍN, HFP #### [facility] [address] [place] [id number] Observed: 08/17/2017 Status: F Source: [place] URINE CULTURE 9:04 PM [facility] REPOSITORY Sp. Request/Comment: - Specimen received in preservative Culture Result - <10,000 CFU/ml Enterococcus faecalis --> ABNORMAL ALERT Cephalosporins, clindamycin, and TMP-SMX are not effective for the treatment of enterococcal infections. --> ABNORMAL AL ERT Insignificant colony count. No further workup. --> ABNORMAL ALERT Performed By: #### URCUL #### [facility] [address] [place], [place] [address] PROGRESS Observed: 08/17/2017 Status: COMPLETED Source: [place] 12:23 PM [facility] REPOSITORY HNO ID: [id number] Author: Shakila Villalobos Service: (none) Author Type: Nurse Practitioner Type: Progress Notes Filed: 08/17/2017 12:29 PM Note Text: Subjective HPI Pt presents with c/o dysuria, urinary urgency and frequency x 5 days. Denies fever, chills, abd/flank/back pain. Taking OTC uristat. Review of Systems Constitutional: Negative for chills and fever. Gastrointestinal: Negative for abdominal pain, nausea and vomiting. Genitourinary: Positive for dysuria, frequency and urgency. Negative for flank pain and hematuria. Musculoskeletal: Negative for back pain. Objective Physical Exam Constitutional: She is oriented to person, place, and time and well-developed, well-nourished, and in no distress. No distress. Abdominal: There is no CVA tenderness. Neurological: She is alert and oriented to person, place, and time. Skin: Skin is warm and dry. She is not diaphoretic. BP 114/78 (BP Site: Left Arm, BP Position: Sitting, BP Cuff Size: Regular Adult) Pulse 83 Temp 36.1 ?C (97 ?F) (Left Tympanic) Resp 16 Wt 49.2 kg (108 lb 6.4 oz) SpO2 96% BMI 19.36 kg/m2 .Patient presents with: UTI PAST MEDICAL HISTORY Diagnosis Date - Arthralgia of temporomandibular joint - Esophageal reflux - ITP (idiopathic thrombocytopenic purpura) - Multiple sclerosis (HCC) - Myalgia and myositis, unspecified - Other anxiety states - Other forms of migraine - Other osteoporosis - Other sleep disturbances - Pain in joint, pelvic region and thigh R hip pain PAST SURGICAL HISTORY Procedure Laterality Date - EXCIS BREAST LES W XRAY MARKER 02/05/06 right - MAMMOGRAM NEEDLE LOC LEFT 02/05/06 right - PAST SURGICAL HISTORY OF 2015 cataract surgery - PREOP PLACEMENT NEEDLE LOC 02/05/06 right ALLERGIES Insect Bite [Other] MEDICATIONS Bisacodyl (CORRECTOL) 5 mg tab Take 3 tablets by mouth as needed. famotidine (PEPCID) 20 mg tablet Take 20 mg by mouth twice daily. alendronate (FOSAMAX) 70 mg tablet once each week. gabapentin (NEURONTIN) 300 mg capsule 600 mg once daily. fluconazole (DIFLUCAN) 150 mg tablet as needed. Sennosides (SENNA LAXATIVE) 25 mg tab Take 50 mg by mouth once daily. Cholecalciferol, Vitamin D3, 5,000 unit cap Take 5,000 Units by mouth once daily. Melatonin 5 mg tab Take 5 mg by mouth at bedtime as needed. rOPINIRole (REQUIP) 1 mg tablet Take 2 tablets in AM 1 tablet between 3 and 4 pm and 2 tabs at HS amitriptyline (ELAVIL) 25 mg tablet Take two tablets by mouth at bedtime. Hydrochlorothiazide 12.5 mg capsule Take 12.5 mg by mouth once daily. docusate sodium 100 mg capsule Take 100 mg by mouth once daily. ERYTHROMYCIN-BENZOYL PEROXIDE TOPICAL Apply to affected area. 1 application as needed EPINEPHrine (EPIPEN) 0.3 mg/0.3 mL (1:1,000) atIn Use as directed IM injection for insect/bee stings estradiol (ESTRACE) 0.01 % (0.1 mg/g) vaginal cream Use 0.5 g vaginally. twice weekly TESTOSTERONE, BULK, MISC Apply cream to vaginal area nightly. Ca Carb-Mag Cmb 11-D3-Zn Sulf (ZPAIPEL-FDBFPFFXB-WIEJ) [phone] on-uatq-sn-mg ORAL Tab Take by mouth once daily. ALPRAZolam (XANAX) 0.5 mg ORAL tablet Take by mouth. Take one(1) tablet daily and 2 tabs at HS acetaminophen-hydrocodone (VICODIN) 5-500 mg ORAL Tab 1 tab twice a day for hip/back pain, As needed cephALEXin (KEFLEX) 500 mg capsule Take 1 capsule by mouth twice daily for 7 days. FOR 10 DAYS Lactobacillus acidophilus (FLORAJEN) 460 mg (20 billion cell) cap Take 1 capsule by mouth once daily. ondansetron (ZOFRAN) 4 mg tablet as needed. ocrelizumab (OCREVUS) 30 mg/mL soln injection Inject 20 mL intravenously once every 6 months. COMPOUNDED PRESCRIPTION High dose Biotin 100 mg capsule once a day x 2 weeks then increase to 100 mg BID. DIGESTIVE ENZYMES CAP Take one(1) tablet two(2) times daily. PYRIDIUM 200 MG TAB as necessary FAMILY HISTORY Problem Relation Age of Onset - Breast Cancer Maternal Grandmother - Breast Cancer maternal great GM - Arthritis Mother - Alzheimers [Other] [OTHER] Mother lived to age 101 - Prostate Cancer Father - Prostate Cancer Brother - Prostate Cancer Brother - Multiple sclerosis [Other] [OTHER] No Family History - Prostate Cancer Brother Social History Substance Use Topics - Smoking status: Former Smoker Packs/day: 1.50 Years: 14.00 Types: Cigarettes Quit date: 01/12/1978 - Smokeless tobacco: Never Used Comment: quit 1977 - Alcohol use No ASSESSMENT/PLAN: 1. Acute cystitis without hematuria - ICD9: 595.0, ICD10: N30.00 (primary diagnosis) - CEPHALEXIN 500 MG CAPSULE - LACTOBACILLUS ACIDOPHILUS 460 MG (20 BILLION CELL) CAPSULE 2. Dysuria - ICD9: 788.1, ICD10: R30.0 acute - UA positive for elin esterase and nitrates - Send urine for culture - Patient education for prevention given - UA DIP B/O - URINE CULTURE The patient is instructed to return or seek emergency treatment if symptoms become worse or with any acute change in condition. The patient verbalizes understanding and is in agreement with plan of care. Shakila Villalobos CNP PROGRESS Observed: 07/15/2017 Status: COMPLETED Source: [place] 1:48 PM [facility] REPOSITORY O ID: [id number] Author: Nichole Wei (Filling Station Equipment Mechanic) Madis[place] Service: (none) Author Type: Nurse Specialist Type: Progress Notes Filed: 07/15/2017 3:05 PM Note Text: [facility] MULTIPLE SCLEROSIS FOLLOWUP/ESTABLISHED PATIENT VISIT PERSONS PRESENT AT ENCOUNTER: patient, DISEASE SUMMARY Onset: approx 07/28 (approx 1989?) Diagnosis of MS: 12/26 Course at onset: primary progressive (vs. relapsing-remitting?) Current disease course: progressive Previous disease therapies: - Copaxone 03/28-12/01 (progression, disliked injections) - Gilenya 04/02-01/01 (infections and pancytopenia) - Tecfidera started 12/22/12 and dc'd 09/03 (leukopenia and lymphopenia) ?-Copaxone 40 mg 3/wk started 02/03 -12/07 Current disease therapy: Ocrevus Date started :12/11/16 Biotin never started in 09/05 or 04/07, or in 2017-b/o cost ? Most recent MRI brain: 08/18/14 and 10/31/16 Most recent MRI cervical spine: 08/23/05 Most recent MRI thoracic spine: 08/23/05 CSF 12/28/05 increased IgG index, (+) OCBs TESTS SUPERINTENDENT scheduled for 01/17/06 and 01/31/06 but pt cancelled, completed 03/30/12 JCV serology: not done VZV Ig07/02/13 (+) MRI results: No new brain MRI to review CHIEF COMPLAINT: Follow-up on MS disease modifying therapy INTERVAL HISTORY: -she feels that her energy may be a little better since on Ocrevus. -She received a letter in last few mo that the first 2 Ocrevus infusions were not covered. She had last tx on 06/27/17. She has not yet heard if these txs will be covered and awaiting decision from her insurance. [employer] is also working on PAP to help with coverage. -No recent appt with Dr Ocasio in Heme/Onc -she did some PT for gait/balance training and felt it was helpful. Doing home exercise program. Not walking much outdoors on her property in winter but is doing stairs at home and walking in house. Issues with current MS therapy: Tolerating Ocrevus medication without side effects. SUBJECTIVE AND REVIEW OF SYSTEMS: Neuro-QoL Office Visit from 09/26/2016 in [facility] Office Visit from 03/28/2016 in [facility] Upper Extremity Percentile 4 Lower Extremity Percentile 16 16 Sleep Percentile 22 46 Fatigue Percentile 25 38 Anxiety Percentile 63 Depression Percentile 38 51 Stigma Percentile 50 61 Positive Affect Well Being Percentile 50 43 Cognitive Function Percentile 44 18 Ability To Participate In Social Roles Percentile 38 Satisfaction With Social Roles Percentile 25 19 Emotional Behavior Dyscontrol Percentile 10 32 *NeuroQoL is a multi-domain patient-reported quality of life questionnaire. Here scores are expressed as percentiles, where the lowest possible score is one, the highest possible score is 99, and 50 is average. Higher scores indicate better functioning for: Ability to Participate in Social Roles and Activities, Lower Extremity Function/Mobility, Positive Affect and Well-Being, Satisfaction with Social Roles and Activities, and Upper Extremity Function/ADL. Higher scores indicate worse functioning for: Anxiety, Cognitive Function, Depression, Emotional and Behavioral Dyscontrol, Fatigue, Sleep Disturbance, and Stigma PHQ-9 Office Visit from 09/26/2016 in [facility] Office Visit from 03/28/2016 in [facility] PHQ-9 Score 1 7 *PHQ-9 is a questionnaire for depressive symptoms, with scores 0-4 indicating none, 5-9 mild, 10-14 moderate, 15-19 moderately severe, and 20-27 severe symptoms. PROMIS-10 Office Visit from 09/26/2016 in [facility] Office Visit from 03/28/2016 in [facility] Global Physical Health T Score 44.9 37.4 Global Mental Health T Score 45.8 38.8 0-10 Standard Pain Scale 3 3 *PROMIS-10 is a patient-reported quality of life measure, typically reported as physical and mental domains. Here scores are expressed as percentiles, where the lowest possible score is one, the highest possible score is 99, and 50 is average. Mood: Good/bright Spasticity:restless legs sxs Bladder: good control but had 2 UTIs tx by PCP. She is going to make an appt to see urology for better management. Bowel: No problem Pain related to today's visit:See HPI Fatigue: None Sleep: adequate Memory/Concentration: good PAST HISTORY was reviewed and updated: PAST MEDICAL HISTORY Diagnosis Date - Arthralgia of temporomandibular joint - Esophageal reflux - ITP (idiopathic thrombocytopenic purpura) - Multiple sclerosis (HCC) - Myalgia and myositis, unspecified - Other anxiety states - Other forms of migraine - Other osteoporosis - Other sleep disturbances - Pain in joint, pelvic region and thigh R hip pain PAST SURGICAL HISTORY Procedure Laterality Date - EXCIS BREAST LES W XRAY MARKER 02/05/06 right - MAMMOGRAM NEEDLE LOC LEFT 02/05/06 right - PAST SURGICAL HISTORY OF 2015 cataract surgery - PREOP PLACEMENT NEEDLE LOC 02/05/06 right MEDICATIONS and ALLERGIES were reviewed and updated. SOCIAL HISTORY was reviewed and updated: No Data Recorded OBJECTIVE: VITALS AND WELLNESS: BP (!) 107/43 Pulse 94 Ht 159.4 cm (5' 2.75) Wt 48.4 kg (106 lb 9.6 oz) BMI 19.03 kg/m2 BP recheck per APC and 106/58-done manually Smoking status: Former Smoker 1.50 Packs/day For 14.00 Years Types: Cigarettes Quit date: 01/12/1978 Smokeless tobacco: Never Used Comment: quit 1977 Multiple Sclerosis Performance Test Office Visit from 07/15/2017 in [facility] Office Visit from 09/26/2016 in [facility] Processing Speed Test Total Number Correct Low-contrast letter acuity test-2.5 percent opacity Low-contrast letter acuity test-100 percent opacity Dominant hand Right hand Right hand MDT Left Hand Time 39.1 MDT Right Hand Time 33.7 Walking Speed Test (25 feet) 9.1 APC did 9HPT and 25 FT walk with stopwatch 25 ft walk 8.5 sec with cane R hand 26.0 sec dominant L hand 32.0 sec EXAM: General Appearance: Well appearing, alert, in no acute distress, well-hydrated, well nourished. Mental status evaluation during the interview and examination showed normal level of consciousness, orientation, language, memory, praxis, and higher intellectual function Affect: Normal Visual acuity: OD 20/25 OS 20/25 Correction: With glasses Extraocular movements: full, without ENRIQUE and smooth Facial sensation: Intact bilateral Facial movements: Intact bilateral Speech: normal Muscle tone: Right leg spasticity: None Left leg spasticity: None Muscle strength (#/5): Right Left Upper Extremity: Deltoids 5 5 Biceps 5 5 Triceps 5 5 Title I Teacher 5 5 Dorsal interossei 5 5 Lower extremity: Iliopsoas 5 5 Quadriceps 5 5 Hamstrings 5 5 Tibialis anterior 5 5 Gastrocnemius 5 5 Coordination: Upper extremity dexterity and rapid movements: mildly irregular pennie Finger-nose: no dysmetria; coordination intact Heel-haddad: no dysmetria; coordination intact Standing balance: n/t for safety Standard gait: small steps,steady,wide based Assistive device: cane Tandem walking: n/t for safety RESULTS: Monitoring labs: CBC + Diff Component Value Date WBC 4.39 10/31/2016 HB 12.7 10/31/2016 HCT 41.6 10/31/2016 PLT 138 (L) 10/31/2016 ABSLYMPH 0.61 (L) 10/31/2016 Vitamin D Component Value Date VITD25 44.2 10/31/2016 CMP Component Value Date AST 25 10/31/2016 GLUC 71 (L) 10/31/2016 BUN 11 10/31/2016 CREAT 0.67 10/31/2016 NA 141 10/31/2016 K 4.0 10/31/2016 CHLOR 102 10/31/2016 ALT 22 10/31/2016 ASSESSMENT/PLAN: Disease status: stable neurologic exam Symptomatic issues: none Psychosocial issues: none Non-MS related issues: none PATIENT HEALTH EDUCATION: overall Health/Wellness and UTI management and Vit D Supplementation PLAN: Testing: JCV Ab, CBC,CMP brain MRI in November 2017-MRI of the brain and/or spinal cord is being ordered to evaluate for efficacy of multiple sclerosis (MS) disease modifying therapy. Disease activity in MS is often not immediately detectable on history or examination, but is sensitively identified on MRI. If identified, new or active MS lesions on MRI may represent suboptimal response to MS therapy, and would change medical management. Referrals: make appt with local urology Medications: continue on Ocrevus Follow-up: In 6 months at [place] with [facility] APC I spent 40 minutes in this visit, with >50% direct patient time spent counseling about prognosis, treatment options, and coordination of care. JODY Banks CNOV Observed: 07/15/2017 Status: COMPLETED Source: [place] 12:55 PM [facility] REPOSITORY Office Visit ([facility]) DAVIDSON DELACRUZ ([id number]) 1945 F Date Time Provider Department 07/15/17 12:55 PM [facility] KING[facility] your visit today, we recorded the following information about you: Pulse Blood pressure Weight Height 94/minute 107/43 48.4 kg 1.594 m JODY Banks 07/15/2017 3:05 PM Signed [facility] FOLLOWUP/ESTABLISHED PATIENT VISIT PERSONS PRESENT AT ENCOUNTER: patient, DISEASE SUMMARY Onset: approx 07/28 (approx 1989?) Diagnosis of MS: 12/26 Course at onset: primary progressive (vs. relapsing-remitting?) Current disease course: progressive Previous disease therapies: - Copaxone 03/28-12/01 (progression, disliked injections) - Gilenya 04/02-01/01 (infections and pancytopenia) - Tecfidera started 12/22/12 and dc'd 09/03 (leukopenia and lymphopenia) ?-Copaxone 40 mg 3/wk started 02/03 -12/07 Current disease therapy: Ocrevus Date started :12/11/16 Biotin never started in 09/05 or 04/07, or in 2017-b/o cost ? Most recent MRI brain: 08/18/14 and 10/31/16 Most recent MRI cervical spine: 08/23/05 Most recent MRI thoracic spine: 08/23/05 CSF 12/28/05 increased IgG index, (+) OCBs TESTS SUPERINTENDENT scheduled for 01/17/06 and 01/31/06 but pt cancelled, completed 03/30/12 JCV serology: not done VZV Ig07/02/13 (+) MRI results: No new brain MRI to review CHIEF COMPLAINT: Follow-up on MS disease modifying therapy INTERVAL HISTORY: -she feels that her energy may be a little better since on Ocrevus. -She received a letter in last few mo that the first 2 Ocrevus infusions were not covered. She had last tx on 06/27/17. She has not yet heard if these txs will be covered and awaiting decision from her insurance. [employer] is also working on PAP to help with coverage. -No recent appt with Dr Ocasio in Heme/Onc -she did some PT for gait/balance training and felt it was helpful. Doing home exercise program. Not walking much outdoors on her property in winter but is doing stairs at home and walking in house. Issues with current MS therapy: Tolerating Ocrevus medication without side effects. SUBJECTIVE ANDamp; REVIEW OF SYSTEMS: Neuro-QoL Office Visit from 09/26/2016 in [facility] Office Visit from 03/28/2016 in [facility] Upper Extremity Percentile 4 Lower Extremity Percentile 16 16 Sleep Percentile 22 46 Fatigue Percentile 25 38 Anxiety Percentile 63 Depression Percentile 38 51 Stigma Percentile 50 61 Positive Affect Well Being Percentile 50 43 Cognitive Function Percentile 44 18 Ability To Participate In Social Roles Percentile 38 Satisfaction With Social Roles Percentile 25 19 Emotional Behavior Dyscontrol Percentile 10 32 *NeuroQoL is a multi-domain patient-reported quality of life questionnaire. Here scores are expressed as percentiles, where the lowest possible score is one, the highest possible score is 99, and 50 is average. Higher scores indicate better functioning for: Ability to Participate in Social Roles and Activities, Lower Extremity Function/Mobility, Positive Affect and Well-Being, Satisfaction with Social Roles and Activities, and Upper Extremity Function/ADL. Higher scores indicate worse functioning for: Anxiety, Cognitive Function, Depression, Emotional and Behavioral Dyscontrol, Fatigue, Sleep Disturbance, and Stigma PHQ-9 Office Visit from 09/26/2016 in [facility] Office Visit from 03/28/2016 in [facility] PHQ-9 Score 1 7 *PHQ-9 is a questionnaire for depressive symptoms, with scores 0-4 indicating none, 5-9 mild, 10-14 moderate, 15-19 moderately severe, and 20-27 severe symptoms. PROMIS-10 Office Visit from 09/26/2016 in [facility] Office Visit from 03/28/2016 in [facility] Global Physical Health T Score 44.9 37.4 Global Mental Health T Score 45.8 38.8 0-10 Standard Pain Scale 3 3 *PROMIS-10 is a patient-reported quality of life measure, typically reported as physical and mental domains. Here scores are expressed as percentiles, where the lowest possible score is one, the highest possible score is 99, and 50 is average. Mood: Good/bright Spasticity:restless legs sxs Bladder: good control but had 2 UTIs tx by PCP. She is going to make an appt to see urology for better management. Bowel: No problem Pain related to today's visit:See HPI Fatigue: None Sleep: adequate Memory/Concentration: good PAST HISTORY was reviewed and updated: PAST MEDICAL HISTORY Diagnosis Date - Arthralgia of temporomandibular joint - Esophageal reflux - ITP (idiopathic thrombocytopenic purpura) - Multiple sclerosis (HCC) - Myalgia and myositis, unspecified - Other anxiety states - Other forms of migraine - Other osteoporosis - Other sleep disturbances - Pain in joint, pelvic region and thigh R hip pain PAST SURGICAL HISTORY Procedure Laterality Date - EXCIS BREAST LES W XRAY MARKER 02/05/06 right - MAMMOGRAM NEEDLE LOC LEFT 02/05/06 right - PAST SURGICAL HISTORY OF 2015 cataract surgery - PREOP PLACEMENT NEEDLE LOC 02/05/06 right MEDICATIONS and ALLERGIES were reviewed and updated. SOCIAL HISTORY was reviewed and updated: No Data Recorded OBJECTIVE: VITALS ANDamp; WELLNESS: BP (!) 107/43 Pulse 94 Ht 159.4 cm (5' 2.75ANDquot;) Wt 48.4 kg (106 lb 9.6 oz) BMI 19.03 kg/m2 BP recheck per APC and 106/58-done manually Smoking status: Former Smoker 1.50 Packs/day For 14.00 Years Types: Cigarettes Quit date: 01/12/1978 Smokeless tobacco: Never Used Comment: quit 1977 Multiple Sclerosis Performance Test Office Visit from 07/15/2017 in [facility] Office Visit from 09/26/2016 in [facility] Processing Speed Test Total Number Correct Low-contrast letter acuity test-2.5 percent opacity Low-contrast letter acuity test-100 percent opacity Dominant hand Right hand Right hand MDT Left Hand Time 39.1 MDT Right Hand Time 33.7 Walking Speed Test (25 feet) 9.1 APC did 9HPT and 25 FT walk with stopwatch 25 ft walk 8.5 sec with cane R hand 26.0 sec dominant L hand 32.0 sec EXAM: General Appearance: Well appearing, alert, in no acute distress, well-hydrated, well nourished. Mental status evaluation during the interview and examination showed normal level of consciousness, orientation, language, memory, praxis, and higher intellectual function Affect: Normal Visual acuity: OD 20/25 OS 20/25 Correction: With glasses Extraocular movements: full, without ENRIQUE and smooth Facial sensation: Intact bilateral Facial movements: Intact bilateral Speech: normal Muscle tone: Right leg spasticity: None Left leg spasticity: None Muscle strength (#/5): Right Left Upper Extremity: Deltoids 5 5 Biceps 5 5 Triceps 5 5 Title I Teacher 5 5 Dorsal interossei 5 5 Lower extremity: Iliopsoas 5 5 Quadriceps 5 5 Hamstrings 5 5 Tibialis anterior 5 5 Gastrocnemius 5 5 Coordination: Upper extremity dexterity and rapid movements: mildly irregular pennie Finger-nose: no dysmetria; coordination intact Heel-haddad: no dysmetria; coordination intact Standing balance: n/t for safety Standard gait: small steps,steady,wide based Assistive device: cane Tandem walking: n/t for safety RESULTS: Monitoring labs: CBC + Diff Component Value Date WBC 4.39 10/31/2016 HB 12.7 10/31/2016 HCT 41.6 10/31/2016 PLT 138 (L) 10/31/2016 ABSLYMPH 0.61 (L) 10/31/2016 Vitamin D Component Value Date VITD25 44.2 10/31/2016 CMP Component Value Date AST 25 10/31/2016 GLUC 71 (L) 10/31/2016 BUN 11 10/31/2016 CREAT 0.67 10/31/2016 NA 141 10/31/2016 K 4.0 10/31/2016 CHLOR 102 10/31/2016 ALT 22 10/31/2016 ASSESSMENT/PLAN: Disease status: stable neurologic exam Symptomatic issues: none Psychosocial issues: none Non-MS related issues: none PATIENT HEALTH EDUCATION: overall Health/Wellness and UTI management and Vit D Supplementation PLAN: Testing: JCV Ab, CBC,CMP brain MRI in November 2017-MRI of the brain and/or spinal cord is being ordered to evaluate for efficacy of multiple sclerosis (MS) disease modifying therapy. Disease activity in MS is often not immediately detectable on history or examination, but is sensitively identified on MRI. If identified, new or active MS lesions on MRI may represent suboptimal response to MS therapy, and would change medical management. Referrals: make appt with local urology Medications: continue on Ocrevus Follow-up: In 6 months at [facility] I spent 40 minutes in this visit, with ANDgt;50% direct patient time spent counseling about prognosis, treatment options, and coordination of care. Nichole King RN [employer] Referring Provider: ISIAH LOWE [[id number]] Allergies As of Date: 07/15/2017 Noted Allergy Reaction insect bite [Other] 07/25/2005 10 - Anaphylaxis Date Reviewed: 07/15/2017 Reviewed by: Nichole Wei (Filling Station Equipment Mechanic) Madisyn - Fully Assessed Reason for Visit: Follow Up [171] Primary Visit Diagnosis:Multiple sclerosis (HCC) [G35] Other Visit Diagnoses:Abnormal involuntary movement [R25.9] Abnormality of gait [R26.9] Encounter for long-term (current) use of medications [Z79.899] Adverse effect of drug, initial encounter [T88.7XXA] History of recurrent UTIs [Z87.440] Thrombocytopenia (HCC) [D69.6] High risk medication use [Z79.899] Order(s):MRI BRAIN WO/W IVCON [[id number]] Order #: [id number] FUTURE iv contrast (radiology procedure)MRI Brain Inject, intravenously, once for 1 dose.No IV access, insert saline lock prior to beginning of sedation, infusion, injection of imaging exam.Discontinue saline lock post exam. If Pt. has a central line or IVAD, may access for administration according to line specific nursing protocol.Once exam is complete flush line and de-access according to line specific nursing protocol in the MR contrast administration guidelines linkDisp: 1 EachRfl: 0 COMP METABOLIC PANEL [SQCMP] Order #: [id number] FUTURE CBC + DIFF [SQCBCDIF] Order #: [id number] FUTURE JCV ANTIBODY AND INDEX WITH REFLEX [SQJCVIDX] Order #: [id number] FUTURE Prescriptions as of 07/15/2017 Sig: BISACODYL 5 MG TABLET Take 3 tablets by mouth as ne* FAMOTIDINE 20 MG TABLET Take 20 mg by mouth twice marisol* SENNOSIDES 25 MG TABLET Take 50 mg by mouth once brittany* OCRELIZUMAB 30 MG/ML INTRAVEN* Inject 20 mL intravenously on* CHOLECALCIFEROL (VITAMIN D3) * Take 5,000 Units by mouth onc* MELATONIN 5 MG TABLET Take 5 mg by mouth at bedtime* ROPINIROLE 1 MG TABLET Take 2 tablets in AM 1 tablet* AMITRIPTYLINE 25 MG TABLET Take two tablets by mouth at * HYDROCHLOROTHIAZIDE 12.5 MG C* Take 12.5 mg by mouth once da* DOCUSATE SODIUM 100 MG CAPSULE Take 100 mg by mouth once marisol* ERYTHROMYCIN-BENZOYL PEROXIDE* Apply to affected area. 1 ap* EPINEPHRINE 0.3 MG/0.3 ML INJ* Use as directed IM injection* * ESTRADIOL 0.01% (0.1 MG/GRAM)* Use 0.5 g vaginally. twice we* * TESTOSTERONE (BULK) MISC Apply cream to vaginal area n* * CALCIUM CARB-VIT D3-MAGNESIUM* Take by mouth once daily. * ALPRAZOLAM 0.5 MG TABLET Take by mouth. Take one(1) t* * VICODIN 5 MG-500 MG TABLET 1 tab twice a day for hip/jaxson* ALENDRONATE 70 MG TABLET once each week. ONDANSETRON HCL 4 MG TABLET as needed. GABAPENTIN 300 MG CAPSULE 600 mg once daily. FLUCONAZOLE 150 MG TABLET as needed. IV CONTRAST (RADIOLOGY PROCED* MRI Brain Inject, intravenous* COMPOUNDED PRESCRIPTION High dose Biotin 100 mg capsu* * DIGESTIVE ENZYMES CAPSULE Take one(1) tablet two(2) valerie* * PYRIDIUM 200 MG TABLET as necessary Medication notes this encounter ERYTHROMYCIN-BENZOYL PEROXIDE TOPICAL >> Kaitlin Meraz MA 07/15/2017 12:54 PM >> KAITLIN MERAZ MA Jul 15, 2017 12:54 PM CALCIUM CARB-VIT [id number] 333 MG-200 UNIT-133 MG- 5 MG TABLET >> Kaitlin Meraz MA 07/15/2017 12:53 PM >> KAITLIN MERAZ MA Jul 15, 2017 12:53 PM ONDANSETRON HCL 4 MG TABLET >> Kaitlin Meraz MA 07/15/2017 1:00 PM >> KAITLIN MERAZ MA Jul 15, 2017 1:00 PM Received Sig: TK 1 T PO Q 4 H PRN COMPOUNDED PRESCRIPTION >> Kaitlin Meraz MA 07/15/2017 12:53 PM >> KAITLIN MERAZ MA Jul 15, 2017 12:53 PM Needs to be discontinued AB DIGESTIVE ENZYMES CAPSULE >> Kaitlin Meraz MA 07/15/2017 12:54 PM >> KAITLIN MERAZ MA Jul 15, 2017 12:54 PM Needs to be discontinued AB CORRECTOL 5 MG TABLET >> Kaitlin Meraz MA 07/15/2017 12:50 PM >> KAITLIN MERAZ MA Jul 15, 2017 12:50 PM Needs to be discontinued AB PRILOSEC 20 MG CAPSULE,DELAYED RELEASE >> Kaitlin Meraz MA 07/15/2017 12:55 PM >> KAITLIN MERAZ MA Jul 15, 2017 12:55 PM Needs to be discontinued AB PYRIDIUM 200 MG TABLET >> Kaitlin Meraz MA 07/15/2017 12:57 PM >> KAITLIN MERAZ MA Jul 15, 2017 12:57 PM Needs to be discontinued AB Problem List As Of Date 07/15/2017 Noted Resolved UNSP ABNORMAL MAMMOGRAM (right) [R92.8] INVALID FOR* DIFFUS CYSTIC MASTOPATHY [N60.19] INVALID FOR* ABNORMALITY OF GAIT [R26.9] INVALID FOR* Abnormal involuntary movement [R25.9] INVALID FOR* LACK OF COORDINATION [R27.9] INVALID FOR* SENILE OSTEOPOROSIS [M81.0] INVALID FOR* Bilateral Leg Paresthesia [R20.2] INVALID FOR* MS (multiple sclerosis) [G35] INVALID FOR* Other pancytopenia [D61.818] INVALID FOR* Unspecified constipation [K59.00] INVALID FOR* Esophagitis, unspecified [K20.9] INVALID FOR* Iron deficiency anemia, unspecified [D50.9] INVALID FOR*11/23/2013 Thrombocytopenia (HCC) [D69.6] INVALID FOR* Prescriptions ordered this encounter Disp Refills Start End IV CONTRAST (RADIOLOGY PROCEDURE) 1 Ea* 0 07/15/2017 07/16/2017 Class: In Office Sig: MRI Brain Inject, intravenously, once for 1 dose.No IV access, insert saline lock prior to beginning of sedation, infusion, injection of imaging exam.Discontinue saline lock post exam. If Pt. has a central line or IVAD, may access for administration according to line specific nursing protocol.Once exam is complete flush line and de-access according to line specific nursing protocol in the MR contrast administration guidelines link Medications Discontinued During This Encounter bisacodyl(CORRECTOL 5 MG TAB) 0 04/26/2008 07/15/2017 Class: OTC Route: ORAL Sig: for constipation Disc: Discontinued by Patient omeprazole (PRILOSEC) 20 mg ORAL CpDR 0 0 11/14/2006 07/15/2017 Class: Med Update Route: ORAL Sig: Take one(1) tablet two(2) times daily. x 1 week then back to daily dose Disc: Discontinued by Patient Disposition: Return in about 6 months (around 01/12/2018) for f/u with [facility]. Follow-up and Disposition History Recorded Encounter Status:Closed by NICHOLE MOORE on 07/15/17 IMMUNODEFICIENCY CDC Collected: 06/27/2017 Status: F Source: [place] 8:35 AM [facility] REPOSITORY TYPE CODE TESTS RESULT OUT OF RANGE REFERENCE UNITS LAB HCD3P 60-89 % CD3+ T 79 Cell % Result Comment: Specimen age is outside of the required limit of the IVD status reagent employed in this test. However, studies have been performed by the Flow Cytometry laboratory at the [facility] showing acceptable correlations within 48 hours of draw. LYMPHOCYTE VIABILITY WAS 100% LAB HCD3N [phone] Cells/uL 744 Low CD3+ T Cell No. LAB HCD4P 34-61 % 60 CD4+CD3+ T Cell % LAB HCD4N 533-1674 Cells/uL 562 CD4+CD3+ T Cell No. LAB HCD8P 10-41 % 17 CD3+CD8+ T Cell % LAB HCD8N 175-958 Cells/uL 162 Low CD3+CD8+ T Cell No. LAB HCD19P 5-22 % 0 Low CD19+ B Cell % LAB HCD19N 75-660 Cells/uL 0 Low CD19+ B Cell No. LAB HNKP 5-25 % 20 NK Cell % LAB HNKN 102-565 Cells/uL 190 NK Cell No. LAB H48RAT 1.10-3.25 3.47 High CD4/CD8 Ratio LAB HCOMNT Clinical interpretation of Immunodef. lymphocyte subsets Comment must be made with caution. Relative and absolute values may be profoundly affected by immunosuppressive or cytotoxic therapy, and be abnormal in a wide variety of infectious, inflammatory, autoimmune and neoplastic disorders. Result Comment: The following number of cluster designated antibodies were used for the definition of the above reported populations: CD3, CD4, CD8, CD16, CD19, and CD56. This test was developed and its performance characteristics determined by [facility]'s Toshia Donohue [facility] Pathology and Laboratory Medicine [place] ([facility]). It has not been cleared or approved by the FDA. -[facility] is regulated under CLIA as qualified to perform high-complexity testing. This test is used for clinical purposes. It should not be regarded as investigational or for research. Performed By: #### IMMDEF #### [facility] [address] [place], [place] [address] HOSP Observed: 06/27/2017 Status: COMPLETED Source: [place] 8:30 AM [facility] REPOSITORY Infusion Center ([facility]) DAVIDSON DELACRUZ ([id number]) 1945 F Date Time Provider Department 06/27/17 8:30 AM INFUSION NURSE YARELIS DEAN During your visit today, we recorded the following information about you: Temperature Pulse Respiration Blood pressure 97.6 degrees 93/minute 18/minute 114/55 Weight Height 47.2 kg 1.588 m Referring Provider: ISIAH LOWE [[id number]] Allergies As of Date: 06/27/2017 Noted Allergy Reaction insect bite [Other] 07/25/2005 10 - Anaphylaxis Date Reviewed: 06/27/2017 Reviewed by: Jaja (Rn) JODY Grant - Fully Assessed Reason for Visit: IV Medication Administration [149] Cmt: Ocrevus Primary Visit Diagnosis:MS (multiple sclerosis) ([facility]) [G35] Order(s):TREATMENT PARAMETER-NOT NEEDED [[id number]] Order #: [id number]: 1 IMMUNODEFICIENCY [facility] [SQIMMDEF] Order #: [id number]. #:[id number] [] methylPREDNISolone sod succinate(PF) 100 mg injection (Solu-MEDROL)Disp: Rfl: [] acetaminophen 1,000 mg tab(s) (TYLENOL)Disp: Rfl: [] diphenhydrAMINE 50 mg (BENADRYL)Disp: Rfl: [] ocrelizumab 600 mg in NaCl 0.9% 500 mL (OCREVUS)Disp: Rfl: Prescriptions as of 06/27/2017 Sig: OCRELIZUMAB 30 MG/ML INTRAVEN* Inject 20 mL intravenously on* CHOLECALCIFEROL (VITAMIN D3) * Take 5,000 Units by mouth onc* MELATONIN 5 MG TABLET Take 5 mg by mouth daily at b* COMPOUNDED PRESCRIPTION High dose Biotin 100 mg capsu* ROPINIROLE 1 MG TABLET Take 2 tablets in AM 1 tablet* AMITRIPTYLINE 25 MG TABLET Take two tablets by mouth at * HYDROCHLOROTHIAZIDE 12.5 MG C* Take 12.5 mg by mouth as need* DOCUSATE SODIUM 100 MG CAPSULE Take 100 mg by mouth once marisol* ERYTHROMYCIN-BENZOYL PEROXIDE* Apply to affected area. 1 ap* EPINEPHRINE 0.3 MG/0.3 ML INJ* Use as directed IM injection* * ESTRADIOL 0.01% (0.1 MG/GRAM)* Use 0.5 g vaginally. twice we* * TESTOSTERONE (BULK) MISC Apply cream to vaginal area n* * CALCIUM CARB-VIT D3-MAGNESIUM* Take by mouth. Take 2 tablet* * ALPRAZOLAM 0.5 MG TABLET Take by mouth. Take one(1) t* * DIGESTIVE ENZYMES CAPSULE Take one(1) tablet two(2) valerie* * CORRECTOL 5 MG TABLET for constipation * PRILOSEC 20 MG CAPSULE,DELAYE* Take one(1) tablet two(2) valerie* * VICODIN 5 MG-500 MG TABLET 1 tab twice a day for hip/jaxson* * PYRIDIUM 200 MG TABLET as necessary Problem List As Of Date 06/27/2017 Noted Resolved UNSP ABNORMAL MAMMOGRAM (right) [R92.8] INVALID FOR* DIFFUS CYSTIC MASTOPATHY [N60.19] INVALID FOR* ABNORMALITY OF GAIT [R26.9] INVALID FOR* Abnormal involuntary movement [R25.9] INVALID FOR* LACK OF COORDINATION [R27.9] INVALID FOR* SENILE OSTEOPOROSIS [M81.0] INVALID FOR* Bilateral Leg Paresthesia [R20.2] INVALID FOR* MS (multiple sclerosis) [G35] INVALID FOR* Other pancytopenia [D61.818] INVALID FOR* Unspecified constipation [K59.00] INVALID FOR* Esophagitis, unspecified [K20.9] INVALID FOR* Iron deficiency anemia, unspecified [D50.9] INVALID FOR*11/23/2013 Thrombocytopenia (HCC) [D69.6] INVALID FOR* Prescriptions ordered this encounter Disp Refills Start End METHYLPREDNISOLONE SOD SUCC (PF) 125* 06/27/2017 06/27/2017 Route: INTRAVENOUS ACETAMINOPHEN 500 MG TABLET 06/27/2017 06/27/2017 Route: ORAL DIPHENHYDRAMINE 25 MG CAPSULE 06/27/2017 06/27/2017 Route: ORAL OCRELIZUMAB IVPB IN NS 06/27/2017 06/27/2017 Route: INTRAVENOUS SODIUM CHLORIDE 0.9 % INTRAVENOUS SO* 06/27/2017 06/27/2017 Cmt: Inform physician Route: INTRAVENOUS Disc: Auto DC at discharge. DIPHENHYDRAMINE 50 MG/ML INJECTION S* 06/27/2017 06/27/2017 Route: INTRAVENOUS Disc: Auto DC at discharge. HYDROCORTISONE SOD SUCCINATE (PF) 10* 06/27/2017 06/27/2017 Route: INTRAVENOUS Disc: Auto DC at discharge. FAMOTIDINE (PF) 20 MG/2 ML INTRAVENO* 06/27/2017 06/27/2017 Route: INTRAVENOUS Disc: Auto DC at discharge. Medications Discontinued During This Encounter famotidine 20 mg injection (PEPCID) 06/27/2017 06/27/2017 Route: INTRAVENOUS Sig: Disc: Auto DC at discharge. hydrocortisone sodium succinate (PF)* 06/27/2017 06/27/2017 Route: INTRAVENOUS Sig: Disc: Auto DC at discharge. diphenhydrAMINE 50 mg injection (POPPY* 06/27/2017 06/27/2017 Route: INTRAVENOUS Sig: Disc: Auto DC at discharge. NaCl 0.9% iv infusion 06/27/2017 06/27/2017 Cmt: Inform physician Route: INTRAVENOUS Sig: Disc: Auto DC at discharge. Encounter Status:Closed by JAJA GRANT on 06/27/17 JAMESN Observed: 06/24/2017 Status: COMPLETED Source: [place] 12:00 AM [facility] REPOSITORY Telephone (NEMN) DAVIDSON DELACRUZ ([id number]) 1945 F Date Time Provider Department 06/24/17 NICHOLE KING ([facility]) [facility] During your visit today, we recorded the following information about you: Shanna Patefaviola Sec 06/24/2017 9:00 AM Signed Patient is calling and said she has Ocrevus this Friday and not sure if this is approved or not and said she received denial. Please call to discuss further. Nichole King RN [facility] 06/24/2017 9:26 AM Signed I gave the letter pt sent to us to Jennifer.at the end of last week. She was going to call [facility] and find out why this was sent to pt. You can check with Jennifer to see if she has had any further info on this. In our system it is showing as approved in 2018.Nichole King RN [employer] Ofelia Rangel [facility] 06/24/2017 2:56 PM Signed [facility] patient assistance calling to verify denial. He is faxing an attestation that we did get a denial so that she can get patient assistance. Will need copy of letter faxed back. Ofelia Rangel [facility] 06/25/2017 2:40 PM Signed Repy from Tete Chamberlain- JUANCARLOS I called the other payer listed [facility] [employer] and they verified Medicare AANDamp;B is primary. A claim can be denied for many reasons and that will have to be taken care of on the back end there the denials team.Jamee; Ofelia Wei Hollenberg [facility] 07/01/2017 9:48 AM Signed Faxed confirmation of appeal and denial to [facility] [facility] Back up plan if appeal does not get denial overturned. Allergies As of Date: 06/24/2017 Noted Allergy Reaction insect bite [Other] 07/25/2005 10 - Anaphylaxis Date Reviewed: 12/25/2016 Reviewed by: Imelda Fields) JODY Salas - Fully Assessed Reason for Visit: Medication Question [4298] Prescriptions as of 06/24/2017 Sig: OCRELIZUMAB 30 MG/ML INTRAVEN* Inject 20 mL intravenously on* CHOLECALCIFEROL (VITAMIN D3) * Take 5,000 Units by mouth onc* MELATONIN 5 MG TABLET Take 5 mg by mouth daily at b* COMPOUNDED PRESCRIPTION High dose Biotin 100 mg capsu* ROPINIROLE 1 MG TABLET Take 2 tablets in AM 1 tablet* AMITRIPTYLINE 25 MG TABLET Take two tablets by mouth at * HYDROCHLOROTHIAZIDE 12.5 MG C* Take 12.5 mg by mouth as need* DOCUSATE SODIUM 100 MG CAPSULE Take 100 mg by mouth once marisol* ERYTHROMYCIN-BENZOYL PEROXIDE* Apply to affected area. 1 ap* EPINEPHRINE 0.3 MG/0.3 ML INJ* Use as directed IM injection* * ESTRADIOL 0.01% (0.1 MG/GRAM)* Use 0.5 g vaginally. twice we* * TESTOSTERONE (BULK) MISC Apply cream to vaginal area n* * CALCIUM CARB-VIT D3-MAGNESIUM* Take by mouth. Take 2 tablet* * ALPRAZOLAM 0.5 MG TABLET Take by mouth. Take one(1) t* * DIGESTIVE ENZYMES CAPSULE Take one(1) tablet two(2) valerie* * CORRECTOL 5 MG TABLET for constipation * PRILOSEC 20 MG CAPSULE,DELAYE* Take one(1) tablet two(2) valerie* * VICODIN 5 MG-500 MG TABLET 1 tab twice a day for hip/jaxosn* * PYRIDIUM 200 MG TABLET as necessary Problem List As Of Date 06/24/2017 Noted Resolved UNSP ABNORMAL MAMMOGRAM (right) [R92.8] INVALID FOR* DIFFUS CYSTIC MASTOPATHY [N60.19] INVALID FOR* ABNORMALITY OF GAIT [R26.9] INVALID FOR* Abnormal involuntary movement [R25.9] INVALID FOR* LACK OF COORDINATION [R27.9] INVALID FOR* SENILE OSTEOPOROSIS [M81.0] INVALID FOR* Bilateral Leg Paresthesia [R20.2] INVALID FOR* MS (multiple sclerosis) [G35] INVALID FOR* Other pancytopenia [D61.818] INVALID FOR* Unspecified constipation [K59.00] INVALID FOR* Esophagitis, unspecified [K20.9] INVALID FOR* Iron deficiency anemia, unspecified [D50.9] INVALID FOR*11/23/2013 Thrombocytopenia (HCC) [D69.6] INVALID FOR* Encounter Status:Closed by OFELIA FALCON on 06/24/17 ALLERGIES ALLERGIES DATE TYPE / CODE NAME / CODE REACTION SEVERITY SOURCE Drug No Known UNKNOWN [place] 2 Allergy[facility]009086625( [facility] Repository Miscellaneous OTHER ANAPHYLAXIS [place] [address] Allergy/715278737( [facility] SNOMED CT) [place] Repository Miscellaneous OTHER ANAPHYLAXIS [place] [address] Allergy/834807976( [facility]) [place] Repository Miscellaneous No Known Drug Moderate Amaury Pomerene Allergy/347504442( [facility] Hospital (Qualifier Repository Value) ENCOUNTERS ENCOUNTERS ADMIT/DISCHARGE ACCOUNT ADMITTING ENCOUNTER LOCATION SOURCE NUMBER CLASS 06/09/2018/06/09/20 [id number] Ambulatory [address] Repository 05/26/2018/05/26/20 [id number] Ambulatory [address] Repository 05/25/2018/05/28/20 [id number] Ambulatory [address] Repository 05/22/2018 [id number] Ambulatory [facility] ing:MTLAB Repository 04/13/2018/04/13/20 [id number] BHAGATNESHA [address] Repository 04/01/2018 [id number] Ambulatory [facility] Repository 03/23/2018/03/23/20 [id number] BHAGAT NESHA [address] Repository 03/16/2018 [id number] [facility] ing:MTLAB Repository 02/24/2018 [id number] [facility] ing:MFPLAB Repository 02/09/2018/02/10/20 [id number] BHAGATNESHA [address] Repository 01/26/2018/01/27/20 [id number] LEOLA NESHA [address] Repository 01/19/2018/01/20/20 [id number] BHAGAT [address] Repository 01/14/2018 [id number] [facility] ing:MTLAB Repository 01/08/2018/01/10/20 [id number] NEISHA MEDINA Ambulatory BuildinR Amaury Rosado MD oom: [address] [place] [address] Repository 01/08/2018 [id number] [facility] ing:MTLAB Repository 12/30/2017/12/31/19 [id number] Ambulatory [address] Repository 12/30/2017/12/31/19 [id number] Ambulatory [address] Repository 11/11/2017/11/14/19 [id number] Ambulatory [address] Repository 11/11/2017/05/23 [id number] Ambulatory [address] Repository 08/17/2017/08/20/19 [id number] Ambulatory [address] Repository 07/15/2017/07/16/19 [id number] Ambulatory [address] Repository 06/27/2017/06/27/19 [id number] Ambulatory [address] Repository PAYERS PAYERS ENCOUNTER GUARANTOR PAYER SUBSCRIBER SOURCE 05/22/2018 JOSESITO Devlin Primary MARTYNE C [place] [id number] Cr Insurance:MEDICARE KEMPELDOB: [address] PART A BPolicy Number: [id number] Hospital 60[address]Bub: ([phone] [id number] Repository [phone] () Date:2018-05-22 05/22/2018 Secondary MARTYNE C John Insurance:EVERENCE RUBÉNOB: [facility] [id number] Hospital Number: Repository [id number] Date:[id number] [address]WZ: 05/22/2018 Tertiary NOT GIVENUNK [place] Insurance:SELF PAY [facility] Number: Effective Repository Date:2018-05-22 04/13/2018 MARTYNE C Primary Insurance:500 [address] Donovan KEMPELDOB: MEDICARE KEMPELDOB: [facility] [id number] [facility] [id number] [facility] [address] Number: 33 [facility] Repository [address] [place] [address] [id number] [place] [address] [phone]: Date:Plan Name: [id number] () 04/13/2018 Secondary MARTYNE C Amaury Pomroselyn Insurance:EVERENCE KEMPELDOB: [facility] [id number] [place] [address] Number: [address] [facility] [address] Repository [id number] Date: [place] [address] 04/01/2018 DAVIDSON GORDO Primary MARTYNE GORDO [facility][id number] Insurance:MEDICAREPoli KEMPELDOB: [facility] cy Number: [id number] [place] [address] [id number] 33 [facility] Repository 612[address]Bhf: [phone]) Date:8799-04-94[address] [place] [address] [phone] () [address]TSORNIKK, [place] [address]Jnj: [phone]: ([phone] 04/01/2018 Secondary [facility] Insurance:EVERENCEPoli KEELDOB: [facility] cy Number: [id number] Hospital [id number] [address] [place] [address] Repository Date: [address] [place] [address], [address] [place] [address] [place] [address]TU: [phone]: [phone] (HP) 03/23/2018 MARTYNE C Primary Insurance:500 [address] C Amaury Donovan KEMPELDOB: MEDICARE KEMPELDOB: [facility] [id number] [facility] [id number] [address] Number: 33 [facility] Repository [address] [place] [address] [id number] [place] [address] [phone]: Date:Plan Name: [id number] (HP) 03/23/2018 Secondary MARTYNE C Amaury Donovan Insurance:EVERENCE KEMPELDOB: [facility] [id number] Hospital GOSHENPolicy Number: [address] Repository [id number] Date: [place] [address] 03/16/2018 Josesito T Primary MARTYNE C [place] [id number] Cr Insurance:MEDICARE KEMPELDOB: [address], [place] PART A BPolicy Number: [id number] Hospital 56[address]Uia: ([phone] [id number] Repository [phone] (HP) Date:2018-03-16 03/16/2018 Secondary MARTYNE C John Insurance:EVERENCE KEMPELDOB: [facility] [id number] Hospital Number: Repository [id number] Date:5380-64-54[address]J [address], [place] [address]LY: 03/16/2018 Tertiary NOT GIVENUNK [place] Insurance:SELF PAY [facility] Number: Effective Repository Date:2018-03-16 02/24/2018 Josesito Devlin Primary MARTYNE C John [id number] Cr Insurance:MEDICARE [facility] HOSPITALOB: [address], [place] PART A BPolicy Number: [id number] Hospital [address]Tek: [phone] [id number] Repository [phone] () Date:2018-02-24 02/24/2018 Secondary MARTYNE C John Insurance:EVERENCE CRITICAL ACCESS HOSPITALOB: [facility] [id number] Hospital Number: Repository [id number] Date:3395-96-01VL [address] [address]QY: 02/24/2018 Tertiary NOT GIVENUNK [place] Insurance:SELF PAY [facility] Number: Effective Repository Date:2018-02-24 02/09/2018 MARTYNE C Primary Insurance:500 MARTSAE C Amaury Pittmanj[place]ica KEMPELDOB: MEDICARE FAIRFIELDELDOB: [facility] [id number] [facility] [id number] Hospital [address] Number: [address] Repository [address] [place] [address] [id number] [place] [address] [phone]: Date:Plan Name: [id number] () 02/09/2018 Secondary MARTYNE C Amauryjono Dennisroselyn Insurance:EVERENCE KEMPELDOB: [facility] [id number] Hospital GOSHENPolicy Number: [address] Repository [id number] Date: [place], [place] [address] 01/26/2018 MARTYNE C Primary MARTYNE C Amaury IRWINELDOB: Insurance:MEDICARE KEMPELDOB: [facility] [id number] [facility] [id number] Hospital [address] LABPolicy Number: [address] Repository [address], [place] [id number] [place] [phone]: Date:Plan Name: [id number] () 01/26/2018 Secondary MARTSAE Donovan Insurance:CARMINE LITTLEJOHNOB: [facility] [id number] Hospital Number: [address] Repository [id number] Date: [address] [place] [address] [phone] 01/19/2018 MARTYNE C Primary Insurance:500 MARTSAE C Amaury Dennisroselyn KEMPELDOB: MEDICARE KEMPELDOB: [facility] [id number] [facility] [id number] [address] Number: 33 [facility] Repository [address] [place] [address] [id number] [place] [address] [phone]: Date:Plan Name: [id number] () 01/19/2018 Secondary MARTSAE Pittmanne Insurance:CARMINE LITTLEJOHNOB: [facility] [id number] [place] [address] Number: [address] Repository [id number] Date: [address], [place] [address] 01/14/2018 Josesito T Primary MARTYNE C [place] [id number] Cr Insurance:MEDICARE KEANTONIETAELDOB: [address] PART A BPolicy Number: [id number] Hospital [address]Foz: (120) [id number] Repository [phone] () Date:2018-01-14 01/14/2018 Secondary MARTYNE C [place] Insurance:EVERENCE SYDRUBÉNOB: [facility] [id number] Hospital Number: Repository [id number] Date:8995-65-04QG [address] [place] [address]CF: 01/14/2018 Tertiary NOT GIVENUNK John Insurance:SELF PAY [facility] Number: Effective Repository Date:2018-01-14 01/08/2018 MARTYNE C Primary Insurance:500 [address] Dennisroselyn KEMPELDOB: MEDICARE KEMPELDOB: [facility] [id number] [facility] [id number] [address] Number: [address] Repository [address] [place] [address] [id number] [place] [address] [phone]: Date:Plan Name: [id number] () 01/08/2018 Secondary MARTYNE C Amaury Linn Insurance:EVERENCE ERONOB: [facility] OUTPATIENT [id number] Number: [address] Repository [id number] Date: [address] [place] [address] 01/08/2018 Josesito T Primary MARTYNE C John [id number] Cr Insurance:MEDICARE [facility]: [address] PART A BPolicy Number: [id number] Hospital 605[address]Zwp: (625) [id number] Repository [phone] () Date:2018-01-08 01/08/2018 Secondary MARTYNE C John Insurance:CARMINE GOODMAN: [facility] [id number] Hospital Number: Repository [id number] Date:5565-54-56UZ [address] [place] [address]NA: 01/08/2018 Tertiary NOT GIVENUNK John Insurance:SELF PAY [facility] Number: Effective Repository Date:2018-01-08
== END ==
PROVIDERS: Family Provider Family Medicine; PCP Family Medicine; Referring Provider Family Medicine; Visit Provider Family Medicine
DX: E87.6 Hypokalemia (principal)
CPT/HCPCS: 36415; 80048

== ENCOUNTER → 2018-06-17 20:00 | Outpatient (CLI) | payer MEDICARE, OTHER, SELFPAY | PROVIDERS: Family Provider Family Medicine; PCP Family Medicine; Visit Provider Family Medicine | DX: G47.33 Obstructive sleep apnea (adult) (pediatric) (principal) | CPT/HCPCS: 95810 ==

== ENCOUNTER → 2018-07-17 15:01 | Outpatient (CLI) | payer MEDICARE, OTHER, SELFPAY ==
[2018-07-01 13:52] VITALS: BMI 19.5
[2018-07-17 17:41] LABS: Absolute Lymphocyte Count 0.66 X10^3/ul (0.83-4.51); Absolute Neutrophil Count 6.8 X10^3/uL (2.0-7.7); Basophil# 0.01 X10^3/uL; Basophil% 0.1 % (0-1); Eosinophil# 0.06 X10^3/uL; Eosinophils% 0.7 % (0-5); Hematocrit 32.3 % (37-47); Hemoglobin 9.7 g/dl (12.0-15.0); Lymphocyte # 0.66 X10^3/ul (4.0); Lymphocyte % 7.7 % (19-41); Mean Corpuscular Hgb 25.8 pg (27.0-32.0); Mean Corpuscular Volume 85.9 fL (81-99); Mean Platelet Vol. 10.6 fl (6.2-12.0); Monocyte# 1.08 X10^3/uL; Monocyte% 12.5 % (0-10); Neutrophil # 6.77 X10^3/uL (2.7-7.7); Neutrophil % 78.7 % (47-70); Platelet Count 329 K/mm3 (150-450); RBC Distribution Width CV 14.5 % (11.6-14.6); RBC Distribution Width SD 45.3 fl (35.1-43.9); Red Blood Count 3.76 M/mm3 (4.2-5.4); White Blood Count 8.6 K/mm3 (4.4-11.0)
[2018-07-17 17:47] LABS: POSITIVE COUNT NO; POSITIVE DIFFERENTIAL NO; POSITIVE MORPHOLOGY NO
[2018-07-17 17:57] LABS: Erythrocyte Sedimentation Rate 48 mm/hr (0-30)
== END ==
PROVIDERS: Family Provider Family Medicine; PCP Family Medicine; Visit Provider Family Medicine
DX: M25.511 Pain in right shoulder (principal); M25.512 Pain in left shoulder
CPT/HCPCS: 36415; 85025; 85652

== ENCOUNTER → 2018-07-28 20:00 | Outpatient (CLI) | payer MEDICARE, OTHER, SELFPAY | PROVIDERS: Family Provider Family Medicine; PCP Family Medicine; Referring Provider Nurse Practitioner Acute Care; Visit Provider Nurse Practitioner Acute Care | DX: G47.33 Obstructive sleep apnea (adult) (pediatric) (principal) | CPT/HCPCS: 95811 ==

== ENCOUNTER → 2018-08-04 12:09 | Outpatient (CLI) | payer MEDICARE, OTHER, SELFPAY ==
[2018-07-01 13:52] VITALS: BMI 19.5
[2018-08-04 13:51] LABS: Erythrocyte Sedimentation Rate 71 mm/hr (0-30)
[2018-08-04 13:54] LABS: Hematocrit 33.8 % (37-47); Hemoglobin 10.3 g/dl (12.0-15.0); Mean Corp Hgb Conc 30.5 g/gl (32-36); Mean Corpuscular Hgb 25.6 pg (27.0-32.0); Mean Corpuscular Volume 84.1 fL (81-99); Mean Platelet Vol. 10.1 fl (6.2-12.0); Platelet Count 296 K/mm3 (150-450); RBC Distribution Width CV 14.9 % (11.6-14.6); Red Blood Count 4.02 M/mm3 (4.2-5.4)
[2018-08-04 13:59] LABS: Scan Indicated on CBC? Y/N NO
[2018-08-04 14:10] LABS: Ferritin 13 ng/mL (8-252)
== END ==
PROVIDERS: Family Provider Family Medicine; PCP Family Medicine; Referring Provider Family Medicine; Visit Provider Family Medicine
DX: M35.3 Polymyalgia rheumatica (principal); D63.8 Anemia in other chronic diseases classified elsewhere
CPT/HCPCS: 36415; 82728; 85027; 85652

== ENCOUNTER → 2018-09-25 10:29 | Outpatient (CLI) | payer MEDICARE, OTHER, SELFPAY ==
[2018-07-01 13:52] VITALS: BMI 19.5
[2018-09-25 12:41] LABS: Erythrocyte Sedimentation Rate 65 mm/hr (0-30)
[2018-09-25 12:55] LABS: Absolute Lymphocyte Count 0.55 X10^3/ul (0.83-4.51); Absolute Neutrophil Count 11.1 X10^3/uL (2.0-7.7); Basophil# 0.01 X10^3/uL; Basophil% 0.1 % (0-1); Eosinophil# 0.01 X10^3/uL; Eosinophils% 0.1 % (0-5); Hematocrit 35.7 % (37-47); Hemoglobin 10.5 g/dl (12.0-15.0); Lymphocyte # 0.55 X10^3/ul (4.0); Lymphocyte % 4.5 % (19-41); Mean Corp Hgb Conc 29.4 g/gl (32-36); Mean Corpuscular Hgb 23.8 pg (27.0-32.0); Mean Corpuscular Volume 80.8 fL (81-99); Mean Platelet Vol. 9.7 fl (6.2-12.0); Monocyte# 0.38 X10^3/uL; Monocyte% 3.1 % (0-10); Neutrophil # 11.13 X10^3/uL (2.7-7.7); Neutrophil % 91.9 % (47-70); Platelet Count 327 K/mm3 (150-450); RBC Distribution Width SD 47.3 fl (35.1-43.9); Red Blood Count 4.42 M/mm3 (4.2-5.4); White Blood Count 12.1 K/mm3 (4.4-11.0)
[2018-09-25 13:05] LABS: Differential Indicated SCAN CRITERIA MET; POSITIVE COUNT NO; POSITIVE DIFFERENTIAL YES; POSITIVE MORPHOLOGY NO
[2018-09-25 13:13] LABS: ALB/GLOB Ratio 0.8 RATIO (0.9-2.4); AST(SGOT) 17 U/L (15-37); Alanine Aminotransfer ALT/SGPT 16 U/L (13-56); Albumin, Serum 2.8 g/dL (3.2-5.0); Alkaline Phosphatase 56 U/L (45-117); Anion Gap 8 (5-15); BUN 14 mg/dL (7-18); BUN/Creat Ratio 28.2 RATIO (10-20); Calcium,Total 8.1 mg/dL (8.5-10.1); Chloride 104 mmol/L (98-107); EST Glomerular Filtration Rate 129 mL/min (>60); Est Glom Filt Rate - Afr Amer 156 mL/min (>60); Globulin 3.4 g/dL (2.2-4.2); Glucose 111 mg/dL (74-106); Potassium 4.3 mmol/L (3.5-5.1); Protein, Total 6.2 g/dL (6.4-8.2); Sodium Level 138 mmol/L (136-145)
== END ==
PROVIDERS: Family Provider Family Medicine; PCP Family Medicine; Referring Provider Family Medicine; Visit Provider Family Medicine
DX: G35 Multiple sclerosis (principal); D63.8 Anemia in other chronic diseases classified elsewhere; M25.511 Pain in right shoulder
CPT/HCPCS: 36415; 80053; 85025; 85652; 86140

== ENCOUNTER → 2018-09-30 17:34 | Outpatient (CLI) | payer MEDICARE, OTHER, SELFPAY ==
[2018-07-01 13:52] VITALS: BMI 19.5
== END ==
PROVIDERS: Family Provider Family Medicine; PCP Family Medicine; Referring Provider Otolaryngology; Visit Provider Otolaryngology
DX: B37.9 Candidiasis, unspecified (principal); K14.6 Glossodynia
CPT/HCPCS: 87070

== ENCOUNTER → 2018-11-03 15:09 | Outpatient (CLI) | payer MEDICARE, OTHER, SELFPAY ==
[2018-10-19 12:44] VITALS: BMI 19.2
[2018-11-03 17:50] LABS: Erythrocyte Sedimentation Rate 21 mm/hr (0-30)
[2018-11-03 17:53] LABS: Absolute Neutrophil Count 7.7 X10^3/uL (2.0-7.7); Basophil# 0.01 X10^3/uL; Basophil% 0.1 % (0-1); Eosinophil# 0.01 X10^3/uL; Eosinophils% 0.1 % (0-5); Hemoglobin 11.8 g/dl (12.0-15.0); Lymphocyte % 7.9 % (19-41); Mean Corp Hgb Conc 29.5 g/gl (32-36); Mean Corpuscular Hgb 24.6 pg (27.0-32.0); Mean Corpuscular Volume 83.5 fL (81-99); Mean Platelet Vol. 10.4 fl (6.2-12.0); Monocyte# 0.47 X10^3/uL; Monocyte% 5.3 % (0-10); Neutrophil # 7.65 X10^3/uL (2.7-7.7); Neutrophil % 86.5 % (47-70); Platelet Count 257 K/mm3 (150-450); RBC Distribution Width CV 19.8 % (11.6-14.6); RBC Distribution Width SD 59.9 fl (35.1-43.9); Red Blood Count 4.79 M/mm3 (4.2-5.4); White Blood Count 8.9 K/mm3 (4.4-11.0)
[2018-11-03 17:58] LABS: POSITIVE COUNT NO; POSITIVE DIFFERENTIAL NO; POSITIVE MORPHOLOGY NO
== END ==
PROVIDERS: Family Provider Family Medicine; PCP Family Medicine; Visit Provider Family Medicine
DX: M35.3 Polymyalgia rheumatica (principal)
CPT/HCPCS: 36415; 85025; 85652

== ENCOUNTER → 2018-12-15 12:23 | Outpatient (CLI) | payer MEDICARE, OTHER, SELFPAY ==
[2018-11-20 13:17] VITALS: BMI 19.2
--- NOTE | 2018-12-15 12:26 | BI_ITS ---
MAMMOGRAPHY - BILATERAL SCREENING 3-D TOMOSYNTHESIS REASON FOR EXAM: Female, 73 years old. Bilateral Screening 3-D tomosynthesis PERTINENT HISTORY: History of breast cancer in maternal great grandmother. History of excisional biopsy in right breast and past cyst aspirations. TECHNIQUE: 2-D mammograms and 3-D Tomosynthesis of the breast (s) were performed. CAD was performed. COMPARISON: May 06, 2017, April 09, 2016 FINDINGS: The breast composition is heterogeneously dense that can obscure small breast masses. Scattered benign calcifications are seen. No dense spiculated masses or suspicious microcalcifications are identified. No architectural distortion is identified. There is no skin thickening or retraction. There are stable lymph nodes. There has been no significant change since the prior study. BI/SCREEN MAMM (CAD) W/TENZIN BILAT IMPRESSION: No mammographic signs of malignancy. Routine yearly mammograms recommended. ASSESSMENT CATEGORY: BIRADS Category 2: Benign. A letter regarding these results will be sent to the patient by the facility within 30 days. FOLLOW UP RECOMMENDATION: Yearly follow up mammogram recommended. (A) Approximately 10% of breast cancers are not detected by mammography. A normal mammogram should not delay biopsy of a clinically suspicious abnormality. Electronically Signed: Vinnie Marcos MD at 17:36 EDT , Service support ,
== END ==
PROVIDERS: Family Provider Family Medicine; PCP Family Medicine; Referring Provider Family Medicine; Visit Provider Family Medicine
DX: Z12.31 Encounter for screening mammogram for malignant neoplasm of breast (principal)
CPT/HCPCS: 77063; 77067

== ENCOUNTER → 2019-01-01 10:09 | Outpatient (CLI) | payer MEDICARE, OTHER, SELFPAY ==
[2018-11-20 13:17] VITALS: BMI 19.2
[2019-01-01 12:39] LABS: Erythrocyte Sedimentation Rate 11 mm/hr (0-30)
[2019-01-01 12:52] LABS: Anion Gap 6 (5-15); BUN 10 mg/dL (7-18); BUN/Creat Ratio 19.8 RATIO (10-20); Calcium,Total 8.6 mg/dL (8.5-10.1); Chloride 106 mmol/L (98-107); EST Glomerular Filtration Rate 127 mL/min (>60); Est Glom Filt Rate - Afr Amer 154 mL/min (>60); Glucose 74 mg/dL (74-106); Potassium 3.9 mmol/L (3.5-5.1); Sodium Level 140 mmol/L (136-145)
== END ==
PROVIDERS: Family Provider Family Medicine; PCP Family Medicine; Referring Provider Family Medicine; Visit Provider Family Medicine
DX: M35.3 Polymyalgia rheumatica (principal)
CPT/HCPCS: 36415; 80048; 85652

== ENCOUNTER → 2019-01-29 11:00 | Outpatient (CLI) | payer MEDICARE, OTHER, SELFPAY ==
[2019-01-15 10:07] VITALS: BMI 19.2
== END ==
PROVIDERS: Family Provider Family Medicine; PCP Family Medicine; Referring Provider Nurse Practitioner Acute Care; Visit Provider Nurse Practitioner Acute Care
DX: G47.33 Obstructive sleep apnea (adult) (pediatric) (principal)
CPT/HCPCS: 98960; G0463

== ENCOUNTER → 2019-02-25 14:17 | Outpatient (CLI) | payer MEDICARE, OTHER, SELFPAY ==
[2019-01-15 10:07] VITALS: BMI 19.2
[2019-02-25 15:59] LABS: Erythrocyte Sedimentation Rate 29 mm/hr (0-30)
== END ==
PROVIDERS: Family Provider Family Medicine; PCP Family Medicine; Referring Provider Family Medicine; Visit Provider Family Medicine
DX: R69 Illness, unspecified (principal)
CPT/HCPCS: 36415; 85652; 86140

== ENCOUNTER → 2019-03-01 14:39 | Outpatient (CLI) | payer MEDICARE, OTHER, SELFPAY ==
[2019-01-15 10:07] VITALS: BMI 19.2
--- NOTE | 2019-03-01 14:46 | RAD_ITS ---
STUDY: X-RAY - RIGHT KNEE REASON FOR EXAM: Female, 74 years old. Right knee pain, no injury TECHNIQUE: 4 view(s) of the knee. COMPARISON: None. FINDINGS: Normal visualized distal femur. Normal visualized proximal tibia and fibula. Normal proximal tibiofibular articulation. Normal medial femorotibial compartment. Normal lateral femorotibial compartment. Normal patellofemoral articulation. The soft tissue structures are unremarkable. RAD/Knee 4 or More Views IMPRESSION: Normal x-ray examination of the knee. Electronically Signed: Villa Goodwin MD at 23:47 EDT , Service support ,
[2019-03-01 17:29] LABS: Absolute Lymphocyte Count 0.77 X10^3/uL (0.83-4.51); Absolute Neutrophil Count 5.8 X10^3/uL (2.0-7.7); Basophil# 0.02 X10^3/uL; Basophil% 0.3 % (0-1); Eosinophil# 0.05 X10^3/uL; Eosinophils% 0.6 % (0-5); Hematocrit 37.8 % (37-47); Hemoglobin 11.6 g/dL (12.0-15.0); Lymphocyte # 0.77 X10^3/ul (4.0); Lymphocyte % 9.8 % (19-41); Mean Corp Hgb Conc 30.7 g/dL (32-36); Mean Corpuscular Hgb 28.5 pg (27.0-32.0); Mean Corpuscular Volume 92.9 fL (81-99); Monocyte# 1.15 X10^3/uL; Monocyte% 14.7 % (0-10); NRBC Flagged by Analyzer 0 % (0-5); Neutrophil # 5.82 X10^3/uL (2.7-7.7); Neutrophil % 74.2 % (47-70); Platelet Count 236 K/mm3 (150-450); RBC Distribution Width CV 12.8 % (11.6-14.6); RBC Distribution Width SD 43.8 fl (35.1-43.9); Red Blood Count 4.07 M/mm3 (4.2-5.4); White Blood Count 7.8 K/mm3 (4.4-11.0)
[2019-03-01 17:53] LABS: Rheumatoid Factor < 10.0 IU/mL (<15)
[2019-03-03 20:10] LABS: Anti-Jo <0.2 AI (0.0-0.9)
[2019-03-08 12:55] LABS: ANTINUCLEAR ANTIBODIES DIRECT Negative (Negative)
[2019-03-08 13:42] LABS: CCP IgG Antibodies 7 units (0-19); HLA B27 Negative (.)
== END ==
PROVIDERS: Family Provider Family Medicine; PCP Family Medicine; Referring Provider Family Medicine; Visit Provider Family Medicine
DX: R74.8 Abnormal levels of other serum enzymes (principal); M25.561 Pain in right knee
CPT/HCPCS: 36415; 73564; 81374; 85025; 86038; 86200; 86235; 86431

== ENCOUNTER → 2019-05-27 07:38 | Outpatient (CLI) | payer MEDICARE, OTHER, SELFPAY ==
[2019-05-11 09:18] VITALS: BMI 19.5
--- NOTE | 2019-05-27 08:36 | BD_ITS ---
STUDY: DUAL ENERGY X-RAY ABSORPTIOMETRY / DXA REASON FOR EXAM: Female, 74 years old. The patient is postmenopausal. Loss of height. TECHNIQUE: Bone Mineral Density (BMD) measurements of lumbar spine and bilateral hips were obtained. COMPARISON: Comparison is made with prior study dated November 20, 2014. FINDINGS: Lumbar Spine (L1-L4): g/cm2 (1.013) / T-score (-1.6) / Z-score (0.2) Findings are suggestive of osteopenia with a moderate fracture risk. Left Femur Total: g/cm2 (0.632) / T-score (-3.0) / Z-score (-1.3) Left Femoral Neck: g/cm2 (0.623) / T-score (-3.0) / Z-score (-1.1) Right Femur Total: g/cm2 (0.562) / T-score (-3.5) / Z-score (-1.8) Right Femoral Neck: g/cm2 (0.587) / T-score (-3.2) / Z-score (-1.4) The T-Scores on the most recent prior examination were: Lumbar Spine (L1-L4): There has been worsening of bone density since the previous examination. Left Femur Total: which represents no significant change. . Right Femur Total: which represents an improvement of 4.7%. BD/Dexa Bone Density Study IMPRESSION: The patient is considered osteoporotic as outlined below according to World Evgeny Organization (WHO) criteria with a high fracture risk. There has been no change of bone density since the previous examination. Reference Information: The T-score is the number of standard deviations above or below the standard which is normal for young adults at their peak bone mineral density. The World Health Organization (WHO) interprets the T-scores as follows: Above -1 Normal bone density Between -1 and -2.5 Osteopenia Equal to / or below -2.5 Osteoporosis As a practical clinical guideline, osteopenia may be graded as follows: Mild -1 through -1.5 Moderate -1.6 through -2.0 Severe -2.1 through -2.4 The Z-score is the number of standard deviations above or below age-matched controls. A Z-score of less than -1.5 would be considered abnormal. References: 1. NIH Osteoporosis and Related Bone Diseases http://www.osteo.org 2. International Society for Clinical Densitometry http://www.iscd.org 3. National Osteoporosis Foundation http://www.nof.org Electronically Signed: Danny Taylor, at 10:26 EST , Service support ,
[2019-05-27 10:37] LABS: Erythrocyte Sedimentation Rate 4 mm/hr (0-30)
[2019-05-27 10:39] LABS: CRP < 2.90 mg/L (0.0-3.0)
== END ==
PROVIDERS: Family Provider Family Medicine; PCP Family Medicine; Referring Provider Family Medicine; Visit Provider Family Medicine
DX: M81.0 Age-related osteoporosis without current pathological fracture (principal); M35.3 Polymyalgia rheumatica
CPT/HCPCS: 36415; 77080; 85652; 86140

== ENCOUNTER → 2020-03-21 09:57 | Outpatient (CLI) | payer MEDICARE, OTHER, SELFPAY ==
[2019-05-11 09:18] VITALS: BMI 19.5
[2020-03-21 12:27] LABS: Absolute Lymphocyte Count 0.81 X10^3/uL (0.83-4.51); Basophil# 0.02 X10^3/uL; Basophil% 0.5 % (0-1); Eosinophil# 0.07 X10^3/uL; Eosinophils% 1.7 % (0-5); Hematocrit 43.6 % (37-47); Hemoglobin 13.7 g/dL (12.0-15.0); Lymphocyte # 0.81 X10^3/ul (4.0); Lymphocyte % 19.2 % (19-41); Mean Corp Hgb Conc 31.4 g/dL (32-36); Mean Corpuscular Hgb 28.7 pg (27.0-32.0); Mean Corpuscular Volume 91.2 fL (81-99); Mean Platelet Vol. 10.9 fl (6.2-12.0); Monocyte# 0.36 X10^3/uL; Monocyte% 8.5 % (0-10); NRBC Flagged by Analyzer 0 % (0-5); Neutrophil # 2.95 X10^3/uL (2.7-7.7); Neutrophil % 69.9 % (47-70); Platelet Count 135 K/mm3 (150-450); RBC Distribution Width CV 13.2 % (11.6-14.6); RBC Distribution Width SD 45.1 fl (35.1-43.9); Red Blood Count 4.78 M/mm3 (4.2-5.4); White Blood Count 4.2 K/mm3 (4.4-11.0)
[2020-03-21 13:23] LABS: ALB/GLOB Ratio 1.3 RATIO (0.9-2.4); AST(SGOT) 18 U/L (15-37); Alanine Aminotransfer ALT/SGPT 18 U/L (13-56); Albumin, Serum 3.8 g/dL (3.2-5.0); Alkaline Phosphatase 68 U/L (45-117); Anion Gap 5 (5-15); BUN 12 mg/dL (7-18); BUN/Creat Ratio 20.3 RATIO (10-20); Calcium,Total 9.4 mg/dL (8.5-10.1); Chloride 106 mmol/L (98-107); Cholesterol 185 mg/dL (200); Creatinine, Serum 0.59 mg/dL (0.55-1.02); EST Glomerular Filtration Rate 105 mL/min (>60); Est Glom Filt Rate - Afr Amer 128 mL/min (>60); Glucose 78 mg/dL (74-106); High Density Lipoprotein 76 mg/dL; Potassium 3.9 mmol/L (3.5-5.1); Protein, Total 6.8 g/dL (6.4-8.2); Sodium Level 139 mmol/L (136-145); Triglycerides 121 mg/dL; Very Low Density Lipoprotein 24 mg/dL (5-40)
== END ==
PROVIDERS: PCP Family Medicine; Referring Provider Family Medicine; Visit Provider Family Medicine
DX: E78.00 Pure hypercholesterolemia, unspecified (principal); D63.8 Anemia in other chronic diseases classified elsewhere
CPT/HCPCS: 36415; 80053; 80061; 85025

== ENCOUNTER → 2020-04-12 10:03 | Outpatient (CLI) | payer MEDICARE, OTHER, SELFPAY ==
[2019-05-11 09:18] VITALS: BMI 19.5
--- NOTE | 2020-04-12 10:07 | BI_ITS ---
MAMMOGRAPHY - BILATERAL SCREENING REASON FOR EXAM: Female, 75 years old. Routine annual screening examination. PERTINENT HISTORY: Grandmother with breast cancer. History of prior excisional breast biopsy in the right breast. TECHNIQUE: Digital bilateral breast tenzin (3D mammographic acquisition) in the CC and MLO projections. 2-D mediolateral oblique (MLO) and craniocaudad (CC) views of both breasts were obtained. CAD: Full Field Digital Mammography with Computer Added Detection was performed. COMPARISON: Comparison is made with prior study dated 12/15/2018 and 05/06/2017. FINDINGS: Breast Composition: The breasts are heterogeneously dense, which may obscure small masses. There are no dominant masses or suspicious calcifications. Stable asymmetry of breast tissue in the breast tissue is seen in the left breast as compared to the right side. Stable mild deformity of the right breast as seen on the craniocaudad view in keeping with a prior right excisional breast. No other significant abnormalities are identified. There has been no significant change since the prior study. BI/SCREEN MAMM (CAD) W/TENZIN BILAT IMPRESSION: Stable bilateral screening mammogram. Yearly follow-up mammogram recommended. (A) ASSESSMENT CATEGORY: BIRADS Category 2: Benign. A letter regarding these results will be sent to the patient by the facility within 30 days. Approximately 10% of breast cancers are not detected by mammography. A normal mammogram should not delay biopsy of a clinically suspicious abnormality. [id number] Electronically Signed: Danny Taylor, at 10:52 EDT , Service support ,
== END ==
PROVIDERS: PCP Family Medicine; Referring Provider Obstetrics & Gynecology; Visit Provider Family Medicine
DX: Z12.31 Encounter for screening mammogram for malignant neoplasm of breast (principal)
CPT/HCPCS: 77063; 77067

== ENCOUNTER → 2020-05-22 16:17 | Outpatient (CLI) | payer MEDICARE, OTHER, SELFPAY ==
[2019-05-11 09:18] VITALS: BMI 19.5
[2020-05-22 18:01] LABS: Absolute Lymphocyte Count 0.77 X10^3/uL (0.83-4.51); Absolute Neutrophil Count 3.7 X10^3/uL (2.0-7.7); Basophil# 0.01 X10^3/uL; Basophil% 0.2 % (0-1); Eosinophil# 0.03 X10^3/uL; Eosinophils% 0.6 % (0-5); Hematocrit 42.7 % (37-47); Hemoglobin 13.4 g/dL (12.0-15.0); Lymphocyte # 0.77 X10^3/ul (4.0); Lymphocyte % 16.2 % (19-41); Mean Corp Hgb Conc 31.4 g/dL (32-36); Mean Corpuscular Hgb 28.9 pg (27.0-32.0); Mean Corpuscular Volume 92.2 fL (81-99); Mean Platelet Vol. 10.6 fl (6.2-12.0); Monocyte# 0.27 X10^3/uL; Monocyte% 5.7 % (0-10); NRBC Flagged by Analyzer 0 % (0-5); Neutrophil # 3.66 X10^3/uL (2.7-7.7); Neutrophil % 76.9 % (47-70); Platelet Count 138 K/mm3 (150-450); RBC Distribution Width CV 12.5 % (11.6-14.6); RBC Distribution Width SD 42.5 fl (35.1-43.9); Red Blood Count 4.63 M/mm3 (4.2-5.4); White Blood Count 4.8 K/mm3 (4.4-11.0)
[2020-05-22 18:35] LABS: ALB/GLOB Ratio 1.6 RATIO (0.9-2.4); AST(SGOT) 18 U/L (15-37); Alanine Aminotransfer ALT/SGPT 23 U/L (13-56); Alkaline Phosphatase 67 U/L (45-117); Anion Gap 4 (5-15); BUN 12 mg/dL (7-18); BUN/Creat Ratio 23.3 RATIO (10-20); Calcium,Total 9.3 mg/dL (8.5-10.1); Chloride 108 mmol/L (98-107); Creatinine, Serum 0.52 mg/dL (0.55-1.02); EST Glomerular Filtration Rate 123 mL/min (>60); Est Glom Filt Rate - Afr Amer 149 mL/min (>60); Globulin 2.5 g/dL (2.2-4.2); Glucose 92 mg/dL (74-106); Potassium 3.9 mmol/L (3.5-5.1); Protein, Total 6.5 g/dL (6.4-8.2); Sodium Level 141 mmol/L (136-145)
== END ==
PROVIDERS: PCP Family Medicine; Referring Provider Family Medicine; Visit Provider Family Medicine
DX: R41.0 Disorientation, unspecified (principal)
CPT/HCPCS: 36415; 80053; 85025

== ENCOUNTER → 2020-07-14 17:43 | Outpatient (CLI) | payer MEDICARE, OTHER, SELFPAY ==
[2019-05-11 09:18] VITALS: BMI 19.5
== END ==
PROVIDERS: PCP Family Medicine; Referring Provider Family Medicine; Visit Provider Family Medicine
DX: N39.0 Urinary tract infection, site not specified (principal)
CPT/HCPCS: 87086; 87088

== ENCOUNTER → 2020-08-10 17:50 | Outpatient (CLI) | payer MEDICARE, OTHER, SELFPAY ==
[2019-05-11 09:18] VITALS: BMI 19.5
== END ==
PROVIDERS: PCP Family Medicine; Referring Provider Family Medicine; Visit Provider Family Medicine
DX: R30.0 Dysuria (principal)
CPT/HCPCS: 87086

== ENCOUNTER → 2020-09-01 14:27 | Outpatient (CLI) | payer MEDICARE, OTHER, SELFPAY ==
[2019-05-11 09:18] VITALS: BMI 19.5
== END ==
PROVIDERS: PCP Family Medicine; Referring Provider Family Medicine; Visit Provider Family Medicine
DX: N39.0 Urinary tract infection, site not specified (principal)
CPT/HCPCS: 87086; 87088

== ENCOUNTER → 2020-09-11 13:47 | Outpatient (CLI) | payer MEDICARE, OTHER, SELFPAY ==
[2020-09-11 10:12] VITALS: BMI 22.7
== END ==
PROVIDERS: PCP Family Medicine; Visit Provider Obstetrics & Gynecology
DX: R30.0 Dysuria (principal)
CPT/HCPCS: 87086; 87088

== ENCOUNTER → 2020-10-03 14:07 | Outpatient (CLI) | payer MEDICARE, OTHER, SELFPAY ==
[2020-09-11 10:12] VITALS: BMI 22.7
--- NOTE | 2020-10-03 14:10 | US_ITS ---
STUDY: RENAL ULTRASOUND - COMPLETE REASON FOR EXAM: Female, 75 years old. Flank pain and fever TECHNIQUE: Ultrasound evaluation of the kidneys was performed with real-time and static kendrick-scale imaging. COMPARISON: None. FINDINGS: RIGHT KIDNEY: Normal location of the right kidney, which is normal in size. The right kidney measures 9.4 x 4.3 x 4.4 cm. There is a normal cortex of the right kidney for age. The renal cortex measures 0.9 cm. There is no right renal mass or cyst. There are no right renal calculi. There is no right hydronephrosis. DISTAL RIGHT URETER: There is non-visualization of the distal right ureter. There is no demonstrated right ureterovesical junction calculus. There is a visualized right ureteral jet. LEFT KIDNEY: Normal location of the left kidney, which is normal in size. The left kidney measures 11.6 x 4.4 x 3.9 cm. There is a normal cortex of the left kidney. The renal cortex measures 1.2 cm. There is no left renal mass or cyst. There are no left renal calculi. There is no left hydronephrosis. DISTAL LEFT URETER: There is non-visualization of the distal left ureter. There is no demonstrated left ureterovesical junction calculus. There is a visualized left ureteral jet. AORTA: There is no elongation or tortuosity of the abdominal aorta. I.V.C.: The IVC is patent. BLADDER: The distended urinary bladder has a volume of 455.93 ml. The empty urinary bladder has a volume of 130.96 ml. There is a normal wall thickness of the distended urinary bladder. There is no demonstrated mass within the urinary bladder. There are no demonstrated bladder calculi. The postvoid residual is abnormal and places the patient at risk for urinary reflux and UTIs US/Kidney and Bladder IMPRESSION: Sonographically normal kidneys Bladder distends normally but has a postvoid residual of 130.96 mL which places the patient at risk for urinary reflux and UTIs Electronically Signed: Pierre Galindo MD at 13:56 EDT , Service support ,
== END ==
PROVIDERS: PCP Family Medicine; Visit Provider Urology
DX: N39.0 Urinary tract infection, site not specified (principal)
CPT/HCPCS: 76770

== ENCOUNTER → 2021-02-23 08:36 | Outpatient (CLI) | payer MEDICARE, OTHER, SELFPAY ==
[2021-02-23 10:20] LABS: Absolute Lymphocyte Count 1.05 X10^3/uL (0.83-4.51); Basophil# 0.02 X10^3/uL; Basophil% 0.4 % (0-1); Eosinophil# 0.06 X10^3/uL; Eosinophils% 1.1 % (0-5); Lymphocyte # 1.05 X10^3/ul (0.83-4.51); Lymphocyte % 18.8 % (19-41); Mean Corp Hgb Conc 31.7 g/dL (32-36); Mean Corpuscular Hgb 31.3 pg (27.0-32.0); Mean Corpuscular Volume 98.6 fL (81-99); Mean Platelet Vol. 10.2 fl (6.2-12.0); Monocyte# 0.44 X10^3/uL; Monocyte% 7.9 % (0-10); NRBC Flagged by Analyzer 0 % (0-5); Neutrophil % 71.4 % (47-70); Platelet Count 130 K/mm3 (150-450); RBC Distribution Width CV 11.5 % (11.6-14.6); RBC Distribution Width SD 41.6 fl (35.1-43.9); Red Blood Count 4.16 M/mm3 (4.2-5.4); White Blood Count 5.6 K/mm3 (4.4-11.0)
[2021-02-23 10:48] LABS: ALB/GLOB Ratio 1.8 RATIO (0.9-2.4); AST(SGOT) 11 U/L (15-37); Alanine Aminotransfer ALT/SGPT 19 U/L (13-56); Albumin, Serum 4.1 g/dL (3.2-5.0); Alkaline Phosphatase 53 U/L (45-117); Anion Gap 5 (5-15); BUN 12 mg/dL (7-18); BUN/Creat Ratio 24.1 RATIO (10-20); Calcium,Total 8.8 mg/dL (8.5-10.1); Chloride 101 mmol/L (98-107); Cholesterol 200 mg/dL (200); EST Glomerular Filtration Rate 128 mL/min (>60); Est Glom Filt Rate - Afr Amer 155 mL/min (>60); Globulin 2.3 g/dL (2.2-4.2); Glucose 83 mg/dL (74-106); High Density Lipoprotein 70 mg/dL; Potassium 3.8 mmol/L (3.5-5.1); Protein, Total 6.4 g/dL (6.4-8.2); Sodium Level 137 mmol/L (136-145); Triglycerides 140 mg/dL; Very Low Density Lipoprotein 28 mg/dL (5-40)
== END ==
PROVIDERS: PCP Family Medicine; Referring Provider Family Medicine; Visit Provider Family Medicine
DX: G35 Multiple sclerosis (principal); E78.00 Pure hypercholesterolemia, unspecified
CPT/HCPCS: 36415; 80053; 80061; 85025

== ENCOUNTER → 2021-05-29 09:19 | Outpatient (CLI) | payer MEDICARE, OTHER, SELFPAY ==
[2021-05-29 12:40] LABS: Absolute Neutrophil Count 3.3 X10^3/uL (2.0-7.7); Basophil# 0.02 X10^3/uL; Basophil% 0.4 % (0-1); Eosinophil# 0.08 X10^3/uL; Eosinophils% 1.7 % (0-5); Hematocrit 41.7 % (37-47); Lymphocyte % 20.8 % (19-41); Mean Corp Hgb Conc 31.2 g/dL (32-36); Mean Corpuscular Hgb 29.2 pg (27.0-32.0); Mean Corpuscular Volume 93.7 fL (81-99); Mean Platelet Vol. 11.1 fl (6.2-12.0); Monocyte# 0.42 X10^3/uL; Monocyte% 8.8 % (0-10); NRBC Flagged by Analyzer 0 % (0-5); Neutrophil # 3.26 X10^3/uL (2.7-7.7); Neutrophil % 67.9 % (47-70); Platelet Count 121 K/mm3 (150-450); RBC Distribution Width CV 13.6 % (11.6-14.6); RBC Distribution Width SD 46.6 fl (35.1-43.9); Red Blood Count 4.45 M/mm3 (4.2-5.4); White Blood Count 4.8 K/mm3 (4.4-11.0)
[2021-05-29 13:04] LABS: Vitamin B12 396 pg/mL (211-911)
[2021-05-29 13:13] LABS: ALB/GLOB Ratio 1.3 RATIO (0.9-2.4); AST(SGOT) 14 U/L (15-37); Alanine Aminotransfer ALT/SGPT 16 U/L (13-56); Albumin, Serum 3.6 g/dL (3.2-5.0); Alkaline Phosphatase 57 U/L (45-117); Anion Gap 7 (5-15); BUN 12 mg/dL (7-18); BUN/Creat Ratio 21.2 RATIO (10-20); Calcium,Total 8.9 mg/dL (8.5-10.1); Chloride 105 mmol/L (98-107); Cholesterol 169 mg/dL (200); Creatinine, Serum 0.56 mg/dL (0.55-1.02); EST Glomerular Filtration Rate 111 mL/min (>60); Est Glom Filt Rate - Afr Amer 134 mL/min (>60); Globulin 2.7 g/dL (2.2-4.2); Glucose 79 mg/dL (74-106); High Density Lipoprotein 78 mg/dL; Potassium 3.5 mmol/L (3.5-5.1); Protein, Total 6.3 g/dL (6.4-8.2); Sodium Level 141 mmol/L (136-145); Thyroid Stim Hormone (TSH) 2.65 uIU/mL (0.358-3.74); Triglycerides 108 mg/dL; Very Low Density Lipoprotein 22 mg/dL (5-40)
[2021-05-31 17:00] LABS: Vitamin D 1,25-Dihydroxy 49.1 pg/mL (19.9-79.3)
== END ==
PROVIDERS: PCP Family Medicine; Referring Provider Psychiatry & Neurology Neurology; Visit Provider Psychiatry & Neurology Neurology
DX: G35 Multiple sclerosis (principal); I67.9 Cerebrovascular disease, unspecified; I69.992 Facial weakness following unspecified cerebrovascular disease; F32.9 Major depressive disorder, single episode, unspecified; M81.0 Age-related osteoporosis without current pathological fracture
CPT/HCPCS: 36415; 80053; 80061; 82607; 82652; 82746; 84443; 85025

== ENCOUNTER 2021-07-18 11:38 | Outpatient (CLI) | payer MEDICARE, OTHER, SELFPAY ==
--- NOTE | 2021-07-18 11:42 | BI_ITS ---
MAMMOGRAPHY - BILATERAL SCREENING REASON FOR EXAM: Female, 76 years old. Routine annual screening examination. PERTINENT HISTORY: Grandmother with breast cancer. Remote right excisional breast biopsy. TECHNIQUE: Digital bilateral breast tenzin (3D mammographic acquisition) in the CC and MLO projections. 2-D mediolateral oblique (MLO) and craniocaudad (CC) views of both breasts were obtained. CAD: Full Field Digital Mammography with Computer Added Detection was performed. COMPARISON: Comparison is made with prior study 04/12/2020 and 12/15/2018. FINDINGS: Breast Composition: The breasts are heterogeneously dense, which may obscure small masses. There are no dominant masses or suspicious calcifications. Stable asymmetry of breast tissue where more breast tissue is seen in the upper-outer quadrant left breast as compared to the right side. Stable deformity of the anterior lateral aspect of the right breast incomplete with history of prior right excisional biopsy and postoperative change. No other significant abnormalities are identified. There has been no significant change since the prior study. BI/SCRN MAMM (CAD)W/TENZIN BILAT IMPRESSION: Stable bilateral screening mammogram. Yearly follow-up mammogram recommended. (A) ASSESSMENT CATEGORY: BIRADS Category 2: Benign. A letter regarding these results will be sent to the patient by the facility within 30 days. Approximately 10% of breast cancers are not detected by mammography. A normal mammogram should not delay biopsy of a clinically suspicious abnormality. [id number] Electronically Signed: Danny Taylor MD at 12:24 EST ,
== END 2021-07-18 23:59 | disposition short-term general hospital (02) ==
LOC: OPBI 11:40
PROVIDERS: PCP Family Medicine; Visit Provider Family Medicine
DX: Z12.31 Encounter for screening mammogram for malignant neoplasm of breast (principal); Z80.3 Family history of malignant neoplasm of breast
CPT/HCPCS: 77063; 77067

== ENCOUNTER 2021-08-29 14:37 | Outpatient (CLI) | payer MEDICARE, OTHER, SELFPAY ==
[2021-08-29 17:52] LABS: Absolute Lymphocyte Count 0.83 X10^3/uL (0.83-4.51); Absolute Neutrophil Count 3.8 X10^3/uL (2.0-7.7); Basophil# 0.02 X10^3/uL; Basophil% 0.4 % (0-1); Eosinophil# 0.06 X10^3/uL; Eosinophils% 1.2 % (0-5); Hemoglobin 14.2 g/dL (12.0-15.0); Lymphocyte # 0.83 X10^3/ul (0.83-4.51); Lymphocyte % 16.6 % (19-41); Mean Corp Hgb Conc 32.3 g/dL (32-36); Mean Corpuscular Hgb 30.5 pg (27.0-32.0); Mean Corpuscular Volume 94.4 fL (81-99); Mean Platelet Vol. 11.7 fl (6.2-12.0); Monocyte# 0.31 X10^3/uL; Monocyte% 6.2 % (0-10); NRBC Flagged by Analyzer 0 % (0-5); Neutrophil # 3.75 X10^3/uL (2.7-7.7); Platelet Count 118 K/mm3 (150-450); RBC Distribution Width CV 11.9 % (11.6-14.6); RBC Distribution Width SD 41.4 fl (35.1-43.9); Red Blood Count 4.66 M/mm3 (4.2-5.4)
[2021-08-29 18:10] LABS: Vitamin B12 435 pg/mL (211-911); Vitamin D,25 Hydroxy 24.2 ng/mL
[2021-08-29 18:27] LABS: ALB/GLOB Ratio 1.7 RATIO (0.9-2.4); AST(SGOT) 12 U/L (15-37); Alanine Aminotransfer ALT/SGPT 20 U/L (13-56); Albumin, Serum 4.1 g/dL (3.2-5.0); Alkaline Phosphatase 51 U/L (45-117); Anion Gap 6 (5-15); BUN 14 mg/dL (7-18); BUN/Creat Ratio 28.5 RATIO (10-20); Chloride 106 mmol/L (98-107); Cholesterol 180 mg/dL (200); Creatinine, Serum 0.49 mg/dL (0.55-1.02); EST Glomerular Filtration Rate 130 mL/min (>60); Est Glom Filt Rate - Afr Amer 157 mL/min (>60); Ferritin 44 ng/mL (8-252); Globulin 2.4 g/dL (2.2-4.2); Glucose 105 mg/dL (74-106); High Density Lipoprotein 81 mg/dL; Iron 37 ug/dL (50-170); Iron Binding Capacity,Total 279 ug/dL (250-450); Potassium 3.8 mmol/L (3.5-5.1); Protein, Total 6.5 g/dL (6.4-8.2); Sodium Level 138 mmol/L (136-145); Triglycerides 142 mg/dL; Very Low Density Lipoprotein 28 mg/dL (5-40)
== END 2021-08-29 23:59 | disposition home or self-care (01) ==
LOC: MFPLAB 14:43
PROVIDERS: PCP Family Medicine; Referring Provider Family Medicine; Visit Provider Family Medicine
DX: E55.9 Vitamin D deficiency, unspecified (principal); D63.8 Anemia in other chronic diseases classified elsewhere; E78.00 Pure hypercholesterolemia, unspecified
CPT/HCPCS: 36415; 80053; 80061; 82306; 82607; 82728; 82746; 83540; 83550; 85025

== ENCOUNTER 2021-09-10 10:38 | Outpatient (CLI) | payer MEDICARE, OTHER, SELFPAY ==
--- NOTE | 2021-09-10 10:42 | ART_ITS ---
Reason For Study: Decreased Pedal Pulses Procedure A bilateral lower extremity continuous wave Doppler with analog waveform analysis and ankle brachial indexes. Left Segmental Pressures Left brachial= 121mmHg. Left posterior tibial artery = 138mmHg. Left dorsalis pedis artery = 131mmHg. Right Segmental Pressures Right brachial= 126mmHg. Right posterior tibial artery = 142mmHg. Right dorsalis pedis artery = 128mmHg. Indices The right ankle brachial index by the posterior tibial artery is 1.13. The right ankle brachial index by the dorsalis pedis is 1.02. The left ankle brachial index by the posterior tibial artery is 1.10. The left ankle brachial index by the dorsalis pedis is 1.04. VL/Ankle Brachial Index Interpretation Summary Triphasic Doppler waveforms are noted at ankle level bilaterally. Pulse-volume recordings appear satisfactory at ankle and digital levels bilaterally. Resting ankle-brachial in dices are normal bilaterally. There is no evidence of significant arterial occlusive disease in the lower ext remities bilaterally. Ordering Physician: Giancarlo Liz Referring Physician: Giancarlo Liz Performed By: Jaylene Nuñez RDCS/RVT
== END 2021-09-10 23:59 | disposition home or self-care (01) ==
LOC: CVS 10:39
PROVIDERS: PCP Family Medicine; Referring Provider Family Medicine; Visit Provider Family Medicine
DX: R09.89 Other specified symptoms and signs involving the circulatory and respiratory systems (principal)
CPT/HCPCS: 93922

== ENCOUNTER → 2021-11-09 | Outpatient (CLI) | payer MEDICARE, OTHER, SELFPAY | END | disposition home or self-care (01) | PROVIDERS: PCP Family Medicine; Visit Provider Family Medicine | DX: N39.0 Urinary tract infection, site not specified (principal) | CPT/HCPCS: 87086; 87088 ==

== ENCOUNTER → 2021-11-30 | Outpatient (CLI) | payer MEDICARE, OTHER, SELFPAY ==
--- NOTE | 2021-11-30 12:58 | MRI_ITS ---
EXAM: MR HEAD WITHOUT AND WITH INTRAVENOUS CONTRAST CLINICAL INDICATION: monitor multiple sclerosis TECHNIQUE: Multiplanar and multisequence MR images of the brain were obtained without and with intravenous contrast. This report was created using [employer] technology. CONTRAST: IV 10mL Dotarem COMPARISON: None. FINDINGS: BRAIN AND EXTRA-AXIAL SPACES: Increased FLAIR regions in the brain may signify early microvascular ischemic changes, a demyelinating process, vasculitis, or sequela related to migraines. Giving the patient''s history, a demyelinating process is favored. No intra- or extra-axial hemorrhage. No intracranial mass or mass effect. Posterior fossa structures are unremarkable. Ventricles are appropriate for age. No hydrocephalus. Basal cisterns are patent. SELLA: Unremarkable. Normal sella turcica, pituitary gland, infundibular stalk, optic chiasm and hypothalamus. AUDITORY SYSTEM: Unremarkable. The internal auditory canals are patent. BONES/JOINTS: Unremarkable. No discrete lytic or blastic abnormalities. SINUSES: Unremarkable as visualized. Clear. MASTOID AIR CELLS: Unremarkable as visualized. Clear. ORBITS: Unremarkable as visualized. Both globes, extraocular muscles, optic nerves and retrobulbar fat appear unremarkable. VASCULATURE: There is evidence for multiple sclerosis by MRI criteria. There are no active plaques. Study was ordered as a monitoring examination. However, there are no prior studies available for comparison. OTHER FINDINGS: There are no enhancing lesions. MRI/Brain W/WO Contrast IMPRESSION: There is evidence for multiple sclerosis by MRI criteria. There are no active plaques. Study was ordered as a monitoring examination. However, there are no prior studies available for comparison. Electronically Signed: Jacob Keith MD at 15:07 EDT ,
[2021-11-30 13:50] LABS: CREATININE FINGERSTICK < 0.9 mg/dL (0.55-1.02); EGFR FINGERSTICK > 60.0000 mL/min (>60)
== END | disposition home or self-care (01) ==
LOC: MRI 12:58
PROVIDERS: PCP Family Medicine; Referring Provider Psychiatry & Neurology Neurology; Visit Provider Psychiatry & Neurology Neurology
DX: G35 Multiple sclerosis (principal)
CPT/HCPCS: 70553; A9575

== ENCOUNTER → 2022-04-05 | Outpatient (CLI) | payer MEDICARE, OTHER, SELFPAY ==
--- NOTE | 2022-04-05 12:48 | CDU_ITS ---
Reason For Study: Carotid Stenosis Rt. Velocities/BP Lt. Velocities/BP Prox CCA 104/18 cm/sec. Prox CCA 109/22 cm/sec. Mid CCA 98/21 cm/sec. Mid CCA 100/22 cm/sec. Dist CCA 81/16 cm/sec. Dist CCA 95/20 cm/sec. Prox ICA 93/19 cm/sec. Prox ICA 62/16 cm/sec. Mid ICA 84/23 cm/sec. Mid ICA 129/41 cm/sec. Dist ICA 100/33 cm/sec. Dist ICA 131/34 cm/sec. Rt. ICA/CCA = 1.0. Lt. ICA/CCA = 1.3. Prox ECA 100/6 cm/sec. Prox ECA 90/7 cm/sec. Rt. Vert. 44/11 cm/sec. Lt. Vert. 56/15 cm/sec. Right Extracranial There is intimal thickening but no significant atherosclerotic plaque noted in the right common carotid artery. There is intimal thickening but no significant atherosclerotic plaque noted in the right internal carotid artery. There is intimal thickening but no significant atherosclerotic plaque noted in the right external carotid artery. Antegrade flow is noted in the right vertebral artery. Left Extracranial There is heterogeneous, irregular atherosclerotic plaque noted in the left common carotid artery. There is intimal thickening but no significant atherosclerotic plaque noted in the left internal carotid artery. The left internal carotid artery is very tortuous. There is intimal thickening but no significant atherosclerotic plaque noted in the left external carotid artery. Antegrade flow is noted in the left vertebral artery. Procedure Carotid Duplex [id number]. This is a Carotid Duplex examination using B-mode, color flow and specral Doppler. Exam performed in department. VL/Carotid Duplex Ultrasound Interpretation Summary Intimal thickening at the proximal right internal carotid artery with less than 50% stenosis. Less than 50% stenosis right external carotid artery Intimal thickening at the proximal left internal carotid artery with significan t tortuosity of the internal carotid artery with velocities in the range of 50 to 69% stenosis but this may be artificially elevated secondary to the acute angulation Less than 50% stenosis left external carotid artery Patent and antegrade vertebral arteries bilaterally Ordering Physician: Jeramy Mcduffie Referring Physician: Shelby Wilcox Performed By: Jaylene Nuñez, GERARD, RVT
== END | disposition home or self-care (01) ==
PROVIDERS: PCP Family Medicine; Referring Provider Psychiatry & Neurology Neurology; Visit Provider Psychiatry & Neurology Neurology
DX: I65.23 Occlusion and stenosis of bilateral carotid arteries (principal)
CPT/HCPCS: 93880

== ENCOUNTER → 2023-06-24 | Outpatient (CLI) | payer MEDICARE, OTHER, SELFPAY ==
--- NOTE | 2023-06-24 16:08 | RAD_ITS ---
STUDY: X-RAY - LEFT SHOULDER REASON FOR EXAM: Female, 78 years old. left shoulder pain TECHNIQUE: 4 view(s) of the shoulder. COMPARISON: None. FINDINGS: There is moderate degenerative arthrosis of the glenohumeral articulation. Normal acromioclavicular joint. Normal acromion. Normal humeral head and visualized proximal humerus. The soft tissue structures are unremarkable. There is no demonstrated fracture. Normal visualized pulmonary apex. RAD/Shoulder min 2 Views IMPRESSION: Glenohumeral osteoarthritis. No acute fracture or dislocation. Electronically Signed: Khoa Nick MD at 19:56 EST ,
--- OUTSIDE RECORDS SUMMARY | 2023-06-24 18:16 | XMS RPT_ITS | CCD ---
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 Name Role Phone ANTHONY MILLER MD Primary Care Unavailable ANTHONY MILLER MD Attending Unavailable ANTHONY MILLER MD Admitting Unavailable BHAGAT NESHA K Consulting Unavailable PROVIDER, UNKNOWN Consulting Unavailable PROVIDER, UNKNOWN Consulting Unavailable LEOLA NESHA K Consulting Unavailable ANTHONY MILLER MD Primary Care Unavailable ANTHONY MILLER MD Attending Unavailable ANTHONY MILLER MD Admitting Unavailable PROVIDER, UNKNOWN Consulting Unavailable PROVIDER, UNKNOWN Consulting Unavailable LEOLA NESHA K Consulting Unavailable CHICHI SHABAZZ DO Admitting Unavailable CHICHI SHABAZZ DO Primary Care Unavailable CHICHI SHABAZZ DO Attending Unavailable PROVIDER, UNKNOWN Consulting Unavailable PROVIDER, UNKNOWN Consulting Unavailable LEOLA NESHA K Consulting Unavailable ANTHONY MILLER MD Admitting Unavailable ANTHONY MILLER MD Primary Care Unavailable ANTHONY MILLER MD Attending Unavailable PROVIDER, UNKNOWN Consulting Unavailable PROVIDER, UNKNOWN Consulting Unavailable Problems Active Problems Problem Classification Problem Date Documented Date Episodic/Chronic Coagulation and hemorrhagic disorders (1 source) Thrombocytopenia, unspecified; Translations: [Thrombocytopenia, unspecified] Onset: 02-05-2023 Chronic Disorders of lipid metabolism (1 source) Hyperlipidemia, unspecified; Translations: [Hyperlipidemia, unspecified] Onset: 10-07-2022 Chronic Genitourinary symptoms and ill-defined conditions (1 source) Unspecified symptoms and signs involving the genitourinary system; Translations: [Unspecified symptoms and signs involving the genitourinary system] Onset: 05-22-2023 Episodic Multiple sclerosis (1 source) Multiple sclerosis; Translations: [Multiple sclerosis] Onset: 10-07-2022 Chronic Past or Other Problems Problem Classification Problem Date Documented Da te Episodic/Chronic Deficiency and other anemia (1 source) Iron deficiency anemia, unspecified; Translations: [Iron deficiency anemia, unspecified] Onset: 10-07-2022 Episodic Results Test Name Value Interpretation Reference Range Facil ity Encounters Encounter Date Encounter Type Care Provider Facility Start: 05-22-2023 End: 05-22-2023 ambulatory ANTHONY MILLER [facility] Start: 02-05-2023 End: 02-05-2023 ambulatory NESHA [facility] Start: 11-05-2022 End: 11-05-2022 ambulatory NESHA [facility] Start: 10-07-2022 End: 10-07-2022 ambulatory [facility] Procedures Date Procedure Procedure Detail Performing Clinician Start: 05-22-2023 Urinalysis ANTHONY LENNON Payers Date Payer Category Payer Unknown [id number] 1945 Unknown [id number] 1945 Unknown [id number] 1945 Unknown [id number] Medicare [id number] Unknown [id number] Clinical Note 08-14-2020 Note Date & Type Note Facility 08-14-2020 Note [facility] Outreach ([place] [facility] DAVIDSON [place]ICO ([id number]) 1945 F Date Time Provider Department 08/14/20 YELENA SOTO During your visit today, we recorded the following information about you: Allergies As of Date: 08/14/2020 Noted Allergy Reaction insect bite [Other] 07/25/2005 10 - Anaphylaxis Comments: Type of fly not sure what the name is Date Reviewed: 01/26/2019 Reviewed by: Roberta Wei (Batch Analyst) Fernando - Fully Assessed Order(s):SARS-COVID VACCINE 1ST DOSE APPT [[id number]] Order #: [id number] FUTURE Prescriptions as of 08/14/2020 Sig: AMITRIPTYLINE 25 MG TABLET Take one(1) tablet daily at b* ALPRAZOLAM 0.5 MG TABLET Take one(1) tablet daily at b* POTASSIUM CHLORIDE ER 20 MEQ * Take 20 mEq by mouth once marisol* PRILOSEC OTC ORAL Take 2 tablets by mouth once * BISACODYL 5 MG TABLET Take 3 tablets by mouth as ne* ALENDRONATE 70 MG TABLET once each week. ONDANSETRON HCL 4 MG TABLET as needed. GABAPENTIN 300 MG CAPSULE 300 mg once daily. FLUCONAZOLE 150 MG TABLET as needed. SENNOSIDES 25 MG TABLET Take 50 mg by mouth once brittany* CHOLECALCIFEROL (VITAMIN D3) * Take 5,000 Units by mouth onc* ROPINIROLE 1 MG TABLET Take 2 tablets in AM 1 tablet* ERYTHROMYCIN-BENZOYL PEROXIDE* Apply to affected area. 1 ap* EPINEPHRINE 0.3 MG/0.3 ML INJ* Use as directed IM injection* * ESTRADIOL 0.01% (0.1 MG/GRAM)* Use 0.5 g vaginally. twice we* * TESTOSTERONE (BULK) MISC Apply cream to vaginal area n* * CALCIUM CARB-VIT D3-MAGNESIUM* Take by mouth once daily. Problem List As Of Date 08/14/2020 Noted Resolved UNSP ABNORMAL MAMMOGRAM (right) [R92.8] 12/19/2005 DIFFUS CYSTIC MASTOPATHY [N60.19] 02/14/2006 ABNORMALITY OF GAIT [R26.9] 11/02/2007 Abnormal involuntary movement [R25.9] 11/02/2007 LACK OF COORDINATION [R27.9] 05/12/2008 SENILE OSTEOPOROSIS [M81.0] 01/30/2009 Bilateral Leg Paresthesia [R20.2] 12/29/2009 MS (multiple sclerosis) [G35] 04/09/2011 Other pancytopenia [D61.818] 02/11/2012 Unspecified constipation [K59.00] 05/13/2012 Esophagitis, unspecified [K20.90] 05/13/2012 Iron deficiency anemia, unspecified [D50.9] 05/13/2012 11/23/2013 Thrombocytopenia (HCC) [D69.6] 11/23/2013 Encounter Status:Closed by ALONZO HYMANR on 08/17/20 [facility] Summary Purpose Family History No Family History Records FoundNo Family History Records FoundNo Family History Records Found Advance Directives No Advanced Directives Records FoundNo Advanced Directives Records FoundNo Advanced Directives Records Found Additional Source Comments INFORMATION SOURCE (unrecogn ized section and content) DATE CREATED AUTHOR AUTHOR'S ORGANIZ ATION 02/20/2022 [facility] DATE CREATED AUTHOR AUTHOR'S ORGANIZ ATION 05/25/2023 [facility] FOR RECORDS PERTAINING TO PATIENTS WHO ARE OR HAVE BEEN ENROLLED IN A CHEMICAL DEPENDENCY/SUBSTANCEABUSE PROGRAM, SOME INFORMATION MAY BE OMITTED. This clinical summary was aggregated from multiple sources. Caution should be exercised in using it in the provision of clinical care. This summary normalizes information from multiple sources, and as a consequence, information in this document may materially change the coding, format and clinical context of patient data. In addition, data may be omitted in some cases. CLINICAL DECISIONS SHOULD BE BASED ON THE PRIMARY CLINICAL RECORDS. [email or web address] provides no warranty or guarantee of the accuracy or completeness of information in this document.
== END | disposition home or self-care (01) ==
LOC: MTRAD 16:08
PROVIDERS: PCP Family Medicine; Referring Provider Psychiatry & Neurology Neurology; Visit Provider Psychiatry & Neurology Neurology
DX: M25.512 Pain in left shoulder (principal)
CPT/HCPCS: 73030

== ENCOUNTER → 2023-10-27 | Outpatient (CLI) | payer MEDICARE, OTHER, SELFPAY ==
[2023-10-30 13:08] LABS: Vitamin D 1,25-Dihydroxy 68.8 pg/mL (24.8-81.5)
== END | disposition home or self-care (01) ==
LOC: MTLAB 15:14
PROVIDERS: PCP Student in an Organized Health Care Education/Training Program; Referring Provider Psychiatry & Neurology Neurology; Visit Provider Psychiatry & Neurology Neurology
DX: E55.9 Vitamin D deficiency, unspecified (principal); R53.83 Other fatigue
CPT/HCPCS: 36415; 82652; 82746

== ENCOUNTER → 2023-11-10 | Outpatient (CLI) | payer MEDICARE, OTHER, SELFPAY ==
--- NOTE | 2023-11-10 13:49 | CDU_ITS ---
Reason For Study: Bilateral carotid stenosis Rt. Velocities/BP Lt. Velocities/BP Prox CCA 95.1/16.0 cm/sec. Prox CCA 65.8/7.6 cm/sec. Mid CCA 65.5/12.7 cm/sec. Mid CCA 70.4/14.9 cm/sec. Dist CCA 76.5/18.2 cm/sec. Dist CCA 79.6/19.8 cm/sec. Prox ICA 73.6/15.2 cm/sec. Prox ICA 50.2/11.9 cm/sec. Mid ICA 68.1/18.8 cm/sec. Mid ICA 74.0/18.7 cm/sec. Dist ICA 112.0/29.8 cm/sec. Dist ICA 134.4/26.7 cm/sec. Rt. ICA/CCA = 1.7. Lt. ICA/CCA = 1.9. Prox ECA 90.0/7.8 cm/sec. Prox ECA 83.1/6.2 cm/sec. Rt. Vert. 53.4/10.5 cm/sec. Lt. Vert. 46.1/13.6 cm/sec. Right Extracranial There is intimal thickening but no significant atherosclerotic plaque noted in the right common carotid artery. There is intimal thickening but no significant atherosclerotic plaque noted in the right internal carotid artery. There is intimal thickening but no significant atherosclerotic plaque noted in the right external carotid artery. Antegrade flow is noted in the right vertebral artery. Left Extracranial There is intimal thickening but no significant atherosclerotic plaque noted in the left common carotid artery. There is intimal thickening but no significant atherosclerotic plaque noted in the left internal carotid artery. The left internal carotid artery is very tortuous. The tortuous nature of the left internal carotid artery may result in flow velocities overestimating the degree of stenosis. There is intimal thickening but no significant atherosclerotic plaque noted in the left external carotid artery. Antegrade flow is noted in the left vertebral artery. Procedure Carotid Duplex [id number]. This is a Carotid Duplex examination using B-mode, color flow and specral Doppler. The study was technically difficult due to patient positioning. Exam performed in department. VL/Carotid Duplex Ultrasound Interpretation Summary Intimal thickening at the proximal right internal carotid artery with less than 50% stenosis Less than 50% stenosis right external carotid artery Intimal thickening at the proximal left internal carotid artery. Very tortuous left internal carotid making velocity estimations likely overestimating the degree of stenosis. Less than 50% stenosis of the proximal left internal carotid artery with slight velocity elevation in the distal internal carotid artery but still less than 50% stenosis Less than 50% stenosis left external carotid artery Patent antegrade vertebral arteries bilaterally No advancement of disease since her previous examination of April 05, 2022 Ordering Physician: Jeramy Mcduffie Referring Physician: Kerry Garcia Performed By: Jordy Alonso RVT
== END | disposition home or self-care (01) ==
PROVIDERS: PCP Student in an Organized Health Care Education/Training Program; Referring Provider Psychiatry & Neurology Neurology; Visit Provider Psychiatry & Neurology Neurology
DX: I65.23 Occlusion and stenosis of bilateral carotid arteries (principal)
CPT/HCPCS: 93880

== ENCOUNTER → 2024-08-17 | Outpatient (CLI) | payer MEDICARE, OTHER, SELFPAY ==
--- NOTE | 2024-08-17 14:35 | RAD_ITS ---
PROCEDURE: Left calcaneus radiographs, two views REASON FOR EXAM: Left heel pain TECHNIQUE: Two views of the left calcaneus were obtained. COMPARISON: None. FINDINGS: Two views of the left calcaneus were obtained. Bones are osteopenic. No acute fracture or dislocation of the left calcaneus. RAD/Calcaneus min 2 Views IMPRESSION: Osteopenia. No acute bony abnormality of the left calcaneus. Reading Location: [facility]
--- NOTE | 2024-08-17 14:36 | RAD_ITS ---
PROCEDURE: Right calcaneus radiographs, three views REASON FOR EXAM: Bilateral heel pain TECHNIQUE: Two views of the right calcaneus were obtained. COMPARISON: None. FINDINGS: Two views of the right calcaneus were obtained. The bones are osteopenic. No displaced fracture of the calcaneus is demonstrated. RAD/Calcaneus min 2 Views IMPRESSION: Osteopenia. No acute bony abnormality of the right calcaneus. If there is persistent pain or clinical concern, short-term follow-up MRI evalu ation may be considered. Reading Location: [facility]
== END | disposition home or self-care (01) ==
LOC: MTRAD 14:36
PROVIDERS: PCP Student in an Organized Health Care Education/Training Program; Referring Provider Psychiatry & Neurology Neurology; Visit Provider Psychiatry & Neurology Neurology
DX: M79.671 Pain in right foot (principal); M79.672 Pain in left foot
CPT/HCPCS: 73650

== ENCOUNTER → 2025-01-11 | Outpatient (CLI) | payer MEDICARE, OTHER, SELFPAY ==
--- NOTE | 2025-01-11 15:35 | RAD_ITS ---
PROCEDURE: CERV SPINE 2 OR 3 VIEWS 01/11/2025 REASON FOR EXAM: CERVICAL SPONDYLOSIS TECHNIQUE: CERV SPINE 2 OR 3 VIEWS COMPARISON: None FINDINGS: See below. RAD/Cerv Spine 2 or 3 Views IMPRESSION: There is marked reversal of the normal cervical lordosis. There is anterolisth esis from C2 through C4. Anterior wedging of the C5 vertebral body. Marked degenerative changes to include loss of intervertebr al disc height with uncovertebral and facet arthropathy from C4 through C7. Odontoid view and evaluation of the prevertebral soft tissues are limited by pa tient positioning. Reading Location: [facility]
--- OUTSIDE RECORDS SUMMARY | 2025-01-11 21:28 | XMS RPT_ITS | CCD ---
Author Organization [facility] CliniSyor Care Team Providers Care Medical Care Manager Name Role Phone Dr. Nesha Younger Primary Care Provider Dr. Jeramy Mcduffie Attending Provider [phone] Dr. Jeramy Mcduffie Referring Provider Dr. Jeramy Mcduffie Attending Provider Dr. Jeramy Mcduffie Referring Provider Dr. Nesha Liz Primary Care Provider Dr. Shelby Wilcox Primary Care Provider Dr. Guevara Villagomez Attending Provider Dr. Shelby Wilcox Primary Care Provider Dr. Shelby Wilcox Referring Provider Dr. Jeramy Mcduffie Attending Provider Dr. Shelby Wilcox Primary Care Provider Dr. Jeramy Mcduffie Attending Provider Dr. Jeramy Mcduffie Referring Provider [phone] MAKAYLA PETER Attending Unavailable HONORIO VAZQUEZ Attending Unavailable HONORIO VAZQUEZ Referring Unavailable Guevara Villagomez Attending Unavailable Anthony Garcia Primary Care Unavailable Jeramy Mcduffie Referring Unavailable Anthony Garcia Primary Care Unavailable Jeramy Mcduffie Referring Unavailable Jeramy Mcduffie Attending Unavailable Anthony Garcia Primary Care Unavailable Anthony Garcia Referring Unavailable Jeramy Mcduffie Attending Unavailable Shelby Wilcox Primary Care Unavailable Jeramy Mcduffie Attending Unavailable Jeramy Mcduffie Referring Unavailable Anthony Garcia Primary Care Unavailable Jeramy Mcduffie Attending Unavailable Jeramy Mcduffie Referring Unavailable Jeramy Mcduffie Attending Unavailable Anthony Garcia Primary Care Unavailable Jeramy Mcduffie Referring Unavailable Radha ARORA, Dr. Payne Primary Care Provider Radha ARORA, Dr. Payne Referring Provider Reta ARORA, Dr. Deshpande Attending Provider [phone] Reta ARORA, Dr. Deshpande Referring Provider [phone] ANTHONY GARCIA MD Admitting Unavailable ANTHONY GARCIA MD Attending Unavailable BHAGAT NESHA K Consulting Unavailable ANTHONY GARCIA MD Primary Care Unavailable PROVIDER, UNKNOWN Consulting Unavailable PROVIDER, UNKNOWN Consulting Unavailable ANTHONY GARCIA MD Admitting Unavailable BHAGAT, NESHA K Consulting Unavailable ANTHONY GARCIA MD Attending Unavailable ANTHONY AGRCIA MD Primary Care Unavailable PROVIDER, UNKNOWN Consulting Unavailable PROVIDER, UNKNOWN Consulting Unavailable ANTHONY GARCIA MD Attending Unavailable LEOLA, NESHA K Consulting Unavailable ANTHONY GARCIA MD Primary Care Unavailable ANTHONY GARCIA MD Admitting Unavailable PROVIDER, UNKNOWN Consulting Unavailable PROVIDER, UNKNOWN Consulting Unavailable BHAGAT, NESHA K Consulting Unavailable BHAGAT, NESHA K Referring Unavailable TUAN RASHID MD Admitting Unavailable TUAN RASHID MD Attending Unavailable TUAN RASHID MD Primary Care Unavailable PROVIDER, UNKNOWN Consulting Unavailable PROVIDER, UNKNOWN Consulting Unavailable BHAGAT, NESHA K Referring Unavailable OSWALD CORDOVA DO Admitting Unavailable OSWALD CORDOVA DO Attending Unavailable OSWALD CORDOVA DO Primary Care Unavailable ANTHONY GARCIA MD Consulting Unavailable PROVIDER, UNKNOWN Consulting Unavailable PROVIDER, UNKNOWN Consulting Unavailable Allergies Allergy Classification Reported Allergen(s) Allergy Type Date of Onset Reaction(s) Facility (6 sources) FLUoxetine Drug Allergy [address] [facility] (6 sources) Nitrofurantoin Drug Allergy 2 Urinary anti-infective s weakness [facility] (6 sources) Nortriptyline Drug Allergy 2 felt poorly [facility] (6 sources) Sertraline Drug Allergy [address] [facility] (2 sources) insect stings Allergy to substance [address] [facility] Work Phone: (5 sources) insect venom; Translations: [insect venom] Allergy to substance 2 NEEDS FOLLOW-UP [facility] (1 source) FLUoxetine Drug Allergy [address] [facility] (1 source) Nitrofurantoin Drug Allergy [address] [facility] (1 source) Nortriptyline Drug Allergy [address] [facility] (1 source) Sertraline Drug Allergy [address] [facility] Medications Current Medications Medication Drug Class(es) Dates Sig (Normalized) Sig (Original) alendronic acid 70 mg oral tablet (6 sources) Bisphosphonate Start: 06-30-2018 take 1 tablet by mouth every week Alendronate (Fosamax) 70 mg tablet Active 70 mg PO EVERY WEEK June 30, 2018 1:00am ALPRAZolam 0.5 mg oral tablet (6 sources) Benzodiazepine Start: 06-30-2018 take 1 tablet by mouth three times daily as needed Alprazolam (Xanax) 0.5 mg tablet Active 0.5 mg PO THREE TIMES A DAY as needed June 30, 2018 1:00am aspirin 81 mg delayed release oral tablet (6 sources) Platelet Aggregation Inhibitor, Nonsteroidal Anti-inflammatory Drug Start: 04-30-2021 take 1 tablet by mouth once daily Aspirin (Adult Aspirin Regimen) 81 mg tablet,delayed release (DR/EC) Active 81 mg PO DAILY April 30, 2021 1:00am atorvastatin 10 mg oral tablet (6 sources) HMG-CoA Reductase Inhibitor Start: 04-30-2021 take 1 tablet by mouth once daily Atorvastatin 10 mg tablet Active 10 mg PO DAILY April 30, 2021 1:00am 24 hr buPROPion hydrochloride 150 mg extended release oral tablet (6 sources) Aminoketone Start: 06-30-2018 take 1 tablet by mouth once daily in the morning Bupropion Hcl (Wellbutrin Xl) 150 mg tablet extended release 24 hr Active 150 mg PO EVERY MORNING June 30, 2018 1:00am cholecalciferol 1.25 mg oral capsule (20 sources) Vitamin D Start: 11-22-2021 End: 08-18-2024 take 1 capsule by mouth every week Cholecalciferol (Vitamin D3) 1,250 mcg (50,000 unit) capsule Active 1250 ug PO EVERY WEEK August 18, 2024 4:42pm Start: 06-30-2018 take 1 capsule by [facility] once daily Cholecalciferol (Vitamin D3) 2,000 unit capsule Active 2000 U PO DAILY June 30, 2018 1:00am diclofenac sodium 0.01 mg/mg topical gel (9 sources) Nonsteroidal Anti-inflammatory Drug Start: 06-24-2023 apply 4 g topically twice daily as needed for pain Diclofenac Sodium 1 % gel Active 4 g TOPICAL TWICE A DAY as needed for shoulder/arm pain June 24, 2023 1:00am Start: 06-24-2023 apply 4 g topically twice brittany y Diclofenac Sodium Active 4 GM TOPICAL TWICE A DAY June 24, 2023 1:00am Start: 06-30-2018 End: 08-25-2020 take 1 tablet by mouth twice daily Diclofenac Sodium 75 mg tablet,delayed release (DR/EC) Discontinued 75 mg PO TWICE A DAY June 30, 2018 1:00am August 25, 2020 2:29pm docusate sodium 250 mg oral capsule (6 sources) Start: 06-30-2018 take 1 capsule by mouth at bedtime Docusate Sodium (Stool Softener) 250 mg capsule Active 250 mg PO AT BEDTIME June 30, 2018 1:00am docusate sodium 50 mg / sennosides, long term 8.6 mg oral tablet (6 sources) Start: 06-30-2018 Sennosides-Doc usa te Sodium (Senna Plus) 8.6-50 mg tablet Active 2 {tbl} PO TWICE A DAY June 30, 2018 1:00am [id number] 0.3 ml EPINEPHrine 1 mg/ml auto-injector (6 sources) alpha-Adrenergic Agonist, beta-Adrenergic Agonist, Catecholamine Start: 06-30-2018 Epinephrine (Epipen) 0.3 mg/0.3 mL auto-injector Active 0.3 mg IM every 10 to 15 minutes as needed June 30, 2018 1:00am estradiol 0.1 mg/ml vaginal cream (6 sources) Estrogen Start: 08-25-2020 Estradiol (Estrace) 0.01 % (0.1 mg/gram) cream Active 1 g VAGINAL TWICE A WEEK 42.5 August 25, 2020 1:00am ferrous sulfate 325 mg oral tablet (6 sources) Start: 08-25-2020 take 1 tablet by mouth once daily Ferrous Sulfate 325 mg (65 mg iron) tablet Active 325 mg PO DAILY 1 August 25, 2020 1:00am gabapentin 300 mg oral capsule (20 sources) Anti-epileptic Agent Start: 10-29-2022 End: 08-18-2024 take 1 capsule by mouth twice daily as needed Gabapentin 300 mg capsule Active 300 mg PO TWICE A DAY as needed for Restless leg syndrome 60 August 18, 2024 4:43pm Start: 08-20-2021 End: 10-29-2022 Gabapentin 100 mg capsule Discontinued 0 .ROUTE .COMPLEX 180 August 20, 2021 1:00am October 29, 2022 7:42pm Take 1 to 2 capsules daily as needed for restless leg syndrome Start: 09-11-2020 End: 10-29-2022 take 1 capsule by mouth once daily Gabapentin 300 mg capsule Discontinued 300 mg PO DAILY September 11, 2020 10:09am October 29, 2022 7:41pm Start: 06-30-2018 End: 09-11-2020 take 1 capsule by mouth twice daily Gabapentin 300 mg capsule Discontinued 300 mg PO TWICE A DAY June 30, 2018 1:00am September 11, 2020 10:11am magnesium oxide 250 mg oral tablet (12 sources) Start: 06-25-2022 End: 08-18-2024 take 1 tablet by mouth twice daily Magnesium Oxide 250 mg magnesium tablet Active 250 mg PO TWICE A DAY 60 August 18, 2024 5:03pm omeprazole 20 mg delayed release oral tablet (6 sources) Proton Pump Inhibitor Start: 06-30-2018 take 1 tablet by mouth once daily Omeprazole Magnesium (Prilosec Otc) 20 mg tablet,delayed release (DR/EC) Active 20 mg PO DAILY June 30, 2018 1:00am ondansetron 4 mg oral tablet (6 sources) Serotonin-3 Receptor Antagonist Start: 06-30-2018 take 1 tablet by mouth every four hours as needed Ondansetron Hcl (Zofran) 4 mg tablet Active 4 mg PO Q4H as needed June 30, 2018 1:00am potassium chloride 20 meq powder for oral solution (6 sources) Start: 06-30-2018 take 20 mEq by mouth once daily Potassium Chloride 20 mEq packet Active 20 meq PO DAILY June 30, 2018 1:00am rOPINIRole 2 mg oral tablet (9 sources) Nonergot Dopamine Agonist Start: 05-04-2022 take 1 tablet by mouth once daily in the morning, then take 0.5 tablet by mouth once, then take 1 tablet by mouth once daily at bedtime Ropinirole 2 mg tablet Active 2 mg .ROUTE .COMPLEX May 04, 2022 1:00am 1 tablet PO qAM, 1/2 tablet every midday and 1 tablet qhs. Start: 06-30-2018 End: 05-04-2022 Ropinirole (Requip) 1 mg tab let Discontinued 0 PO .COMPLEX June 30, 2018 1:00am May 04, 2022 7:41pm 2 tabs in AM, 1 tab in afternoon, 2 tabs at HS PO ; Soft cervical collar (2 sources) Start: 10-27-2023 Soft cervical collar Active 0 .Route .MEDSUPPLY October 27, 2023 12:00am As directed Completed/Discontinued Medications Medication Drug Class(es) Dates Sig (Normalized) Sig (Original) acetaminophen 325 mg / HYDROcodone bitartrate 5 mg oral tablet (12 sources) Opioid Agonist Start: 08-25-2020 End: 11-22-2021 Hydrocodone-Acetami nophen 5-325 mg tablet Discontinued 1 {tbl} PO TWICE A DAY as needed for pain August 25, 2020 November 22, 2021 4:08pm Start: 08-25-2020 End: 11-22-2021 take 1 tablet by mouth twice daily Hydrocodone-Acetaminophen Discontinued 1 TABLET PO TWICE A DAY August 25, 2020 November 22, 2021 4:08pm Start: 06-30-2018 End: 01-15-2019 Hydrocodone-Acetaminophen (N orco) 5-325 mg tablet Discontinued 1 {tbl} PO TWICE A DAY as needed June 30, 2018 1:00am January 15, 2019 10:01am amitriptyline hydrochloride 25 mg oral tablet (6 sources) Tricyclic Antidepressant Start: 06-30-2018 End: 08-25-2020 take 3 tablets by mouth at bedtime Amitriptyline 25 mg tablet Discontinued 75 mg PO AT BEDTIME June 30, 2018 1:00am August 25, 2020 2:27pm Start: 06-30-2018 End: 08-25-2020 take 75 mg by mouth at bedtime Amitriptyline Discontin ued 75 MG PO AT BEDTIME June 30, 2018 1:00am August 25, 2020 2:27pm celecoxib 200 mg oral capsule (11 sources) Nonsteroidal Anti-inflammatory Drug Start: 10-29-2022 End: 08-18-2024 take 1 capsule by mouth twice daily as needed for pain Celecoxib 200 mg capsule Discontinued 200 mg PO TWICE A DAY as needed for pain 60 September 18, 2023 4:52pm October 27, 2023 10:05pm Start: 05-02-2022 End: 10-29-2022 take 1 capsule by mouth twice daily as needed for pain Celecoxib 100 mg capsule Discontinued 100 mg PO TWICE A DAY as needed for pain 60 May 02, 2022 1:00am October 29, 2022 7:40pm cephalexin 500 mg oral capsule (12 sources) Cephalosporin Antibacterial Start: 09-13-2020 End: 09-18-2020 take 1 capsule by mouth every six hours Cephalexin (Keflex) 500 mg capsule Discontinued 500 mg PO EVERY 6 HOURS 09 11September 13, 2020 12:00am September 17, 2020 12:00am September 18, 2020 12:02am Start: 05-11-2019 End: 08-25-2020 Cephalexin 500 mg capsule Di scontinued PO May 11, 2019 1:00am August 25, 2020 2:27pm Start: 05-11-2019 End: 08-25-2020 Cephalexin Discontinued PO 2 0 May 11, 2019 1:00am August 25, 2020 2:27pm clonazePAM 0.5 mg oral tablet (6 sources) Benzodiazepine Start: 08-25-2020 End: 09-11-2020 take 1 tablet by mouth 30 minutes before bedtime Clonazepam 0.5 mg tablet Discontinued 0.5 mg PO AT BEDTIME August 25, 2020 1:00am September 11, 2020 10:10am administer 30 minutes before bedtime Cranberry Fruit Concentrate (6 sources) Non-Standardized Food Allergenic Extract, Non-Standardized Plant Allergenic Extract Start: 09-11-2020 End: 11-22-2021 take 1 tablet by mouth three times daily Cranberry Fruit Concentrate (Azo Cranberry) 250 mg tablet,chewable Discontinued 250 MG PO THREE TIMES A DAY September 11, 2020 10:11am November 22, 2021 4:07pm Start: 09-11-2020 take 1 tablet by aaliyah th three times daily Cranberry Fruit Concentrate (Azo Cranberry) 250 mg tablet,chewable Active 250 MG PO THREE TIMES A DAY September 11, 2020 10:11am Start: 09-11-2020 End: 11-22-2021 take 1 tablet by mouth three times daily Cranberry Fruit Concentrate (Azo Cranberry) 250 mg tablet,chewable Discontinued 250 mg PO THREE TIMES A DAY September 11, 2020 12:00am November 22, 2021 4:07pm Start: 09-11-2020 End: 11-22-2021 take 1 tablet by mouth three times daily Cranberry Fruit Concentrate (Azo Cranberry) 250 mg tablet,chewable Discontinued 250 MG PO THREE TIMES A DAY September 10, 2020 11:00pm November 22, 2021 3:07pm Start: 09-11-2020 End: 11-22-2021 take 1 tablet by mouth three times daily Cranberry Fruit Concentrate (Azo Cranberry) 250 mg tablet,chewable Discontinued 250 MG PO THREE TIMES A DAY September 11, 2020 12:00am November 22, 2021 4:07pm folic acid 1 mg oral tablet (15 sources) Start: 11-24-2021 End: 08-18-2024 take 1 tablet by mouth once daily Folic Acid 1 mg tablet Discontinued 1 mg PO DAILY May 21, 2022 6:12pm October 29, 2022 7:48pm Ocrevus 300MG/10ML (6 sources) Start: 06-30-2018 End: 08-25-2020 Ocrevus 300MG/10ML Discontinued IV June 30, 2018 1:31pm August 25, 2020 2:31pm Start: 06-30-2018 End: 08-25-2020 Ocrevus 300MG/10ML Discontin ued IV June 30, 2018 12:00am August 25, 2020 1:31pm Start: 06-30-2018 End: 08-25-2020 Ocrevus 300MG/10ML Discontin ued IV June 30, 2018 1:00am August 25, 2020 2:31pm vitamin b12 1 mg/ml injectable solution (3 sources) Vitamin B12 Start: 11-22-2021 End: 11-22-2021 inject 100 ug by intramuscular injection once cyanocobalamin (vitamin B-12) 1,000 mcg/mL injection solution Discontinued 100 MCG IM ONCE November 22, 2021 3:13pm November 22, 2021 5:11pm Start: 07-24-2021 End: 07-24-2021 inject 1000 ug by intramuscular injection once cyanocobalamin (vitamin B-12) 1,000 mcg/mL injection solution Discontinued 1000 MCG IM ONCE July 24, 2021 3:24pm July 24, 2021 4:35pm Problems Active Problems Problem Classification Problem Date Documented Date Episodic/Chronic Coagulation and hemorrhagic disorders (1 source) Thrombocytopenia, unspecified; Translations: [Thrombocytopenia, unspecified] Onset: 08-17-2024 Chronic Disorders of lipid metabolism (1 source) Hyperlipidemia, unspecified; Translations: [Hyperlipidemia, unspecified] Onset: 03-24-2024 Chronic Mood disorders (6 sources) Depressive disorder; Translations: [Depression] 09-11-2020 Chronic Multiple sclerosis (11 sources) Multiple sclerosis; Translations: [Multiple sclerosis] Onset: 08-17-2024 Chronic Nutritional deficiencies (3 sources) Vitamin D deficiency; Translations: [Vitamin D deficiency, unspecified] Onset: 10-31-2023 10-27-2023 Chronic Occlusion or stenosis of precerebral arteries (11 sources) Bilateral stenosis of carotid arteries; Translations: [Occlusion and stenosis of bilateral carotid arteries] Onset: 11-18-2023 Chronic Osteoporosis (12 sources) Osteoporosis; Translations: [Age-related osteoporosis without current pathological fracture] 04-30-2021 Chronic Other and ill-defined cerebrovascular disease (6 sources) Cerebrovascular disease; Translations: [Cerebrovascular disease, unspecified] 11-24-2021 Chronic Other and ill-defined cerebrovascular disease (2 sources) Cerebrovascular disease, unspecified; Translations: [Unspecified cerebrovascular disease] Chronic Other circulatory disease (6 sources) Transient ischemia; Translations: [Other disorder of circulatory system] 04-30-2021 Episodic Other connective tissue disease (3 sources) Bilateral pain in upper arms; Translations: [Pain in right upper arm] 05-04-2022 Episodic Other connective tissue disease (1 source) Pain in right foot; Translations: [Pain in right foot] Onset: 09-01-2024 Episodic Other connective tissue disease (1 source) Other symptoms and signs involving the musculoskeletal system; Translations: [Other symptoms and signs involving the musculoskeletal system] Onset: 08-17-2024 Episodic Other connective tissue disease (2 sources) Heel pain; Translations: [Pain in right foot] 08-17-2024 Episodic Other connective tissue disease (2 sources) Disorder of skeletal muscle; Translations: [Other symptoms and signs involving the musculoskeletal system] 08-17-2024 Episodic Other hereditary and degenerative nervous system conditions (7 sources) Restless legs; Translations: [Restless legs syndrome] 05-04-2022 Chronic Other hereditary and degenerative nervous system conditions (2 sources) Restless legs syndrome; Translations: [Restless legs syndrome (RLS)] Onset: 10-30-2023 10-27-2023 Chronic Other nervous system disorders (7 sources) Abnormal gait; Translations: [Unspecified abnormalities of gait and mobility] 04-30-2021 Episodic Other nervous system disorders (1 source) Unspecified abnormalities of gait and mobility; Translations: [Unspecified abnormalities of gait and mobility] Onset: 08-17-2024 Episodic Other nervous system disorders (1 source) Motor dysfunction; Translations: [Abnormal reflex] 07-24-2021 Episodic Other non-traumatic joint disorders (3 sources) Pain in left shoulder; Translations: [Left shoulder pain] 06-24-2023 Episodic Other non-traumatic joint disorders (3 sources) Pain in right shoulder; Translations: [Right shoulder pain] 05-04-2022 Episodic Residual codes; unclassified (12 sources) Obstructive sleep apnea syndrome; Translations: [Obstructive sleep apnea (adult) (pediatric)] 09-11-2020 Chronic Comment on above: AHI 60 titrated to B iPAP 15/11 cmH2O Spondylosis; intervertebral disc disorders; other back problems (3 sources) Neck pain; Translations: [Cervicalgia] 05-04-2022 Episodic Unclassified (5 sources) Motor dysfunction; Translations: [Motor dysfunction] 07-24-2021 Unclassified (1 source) R29.898 - Other symptoms and signs involving the musculoskeletal system,G35 - Multiple sclerosis Unclassified (1 source) G35 - Multiple sclerosis,R29.898 - Other symptoms and signs involving the musculoskeletal system,R26.9 - Unspecified abnormalities of gait and mobility Past or Other Problems Problem Classification Problem Date Documented Da te Episodic/Chronic Malaise and fatigue (20 sources) Fatigue; Translations: [Other fatigue] Onset: 10-30-2023 Episodic Results Test Name Value Interpretation Reference Range Facility ED MED ADMINISTRATION DETAIL on 12-24-2024 ED MED ADMINISTRATION DETAIL [employer] Medication Administration Record [address] [address] [id number] 12/23/2024 Patient: DAVIDSON RICO Sex: Female : 1945 Age: 79y MEASUREMENTS: Wt: 52.2 kg, Ht/Ronald: 62.0 in, BMI: 21.03 ALLERGIES: Macrodantin, Sulfa (Sulfonamide Antibiotics) Medication Ordered Medication Administration Date/Time cefTRIAXone 00:34 12/24 cefTRIAXone (Rocephin) IVPB 1gm/50ml NS 1 g Started (Rocephin) IVPB started at 100 mL/hr diluted in sodium chloride IVPB 0.9 % 00:34 12/24/2024 1gm/50ml NS 1 g Minibag+ 50 mL via Site# 1. Allergies verified and confirmed 5 Mally Brianna, R.N. diluted in sodium rights. IV patency established. IV site checked: no pain, redness, or Stopped chloride IVPB 0.9 % swelling. IV flushed thoroughly pre-medication administration. 01:04 12/24/2024 Minibag+ 50 mL at Information reviewed with patient. Verbalizes understanding. - Mally Reed R.N. 100 mL/hr (NOW x1) 00:36 Jay SantosN. Scanned 01:04 12/24 Medication Discontinued: IV infused. Total amount infused: 50 mL. - 02:35 Mally Reed R.N. 1 of 1 Normal [facility] ED NURSES CLINICAL NOTEon ED NURSES CLINICAL NOTE Nurse Narrative Nurse Clinical Narrative [address] [address] [id number] 12/23/2024 21:02:00 Patient: DAVIDSON RICO Sex: Female : 1945 Age: 79y Disposition: Discharge to [facility] Disposition Decision Time: 00:28 12/24/2024 Departure Time: 02:41 12/24/2024 TRIAGE Triage time: 21:12/23/2024. -- 21:12/23/24 EDT Ethan Carroll R.N. Arrived by EMS. Historian: (patient). Acuity: LEVEL 3. Chief Complaint: FALL: from a wheelchair; fell onto the ground. (pt fell out of chair, unsure how, was able to call for help, nursing staff had pt transported here for evaluation, pt c/o right arm pain, denies any neck or head pain.). 21:12/23/24. Alert. No acute distress. This occurred at an unknown time. ( 6/10 right arm pain, unable to describe pain). SEPSIS SCREEN: NEGATIVE. SIRS criteria negative. No possible sources of infection. -- 21:12/23/24 EDT Ethan Carroll R.N. 21:08 12/23/24. BP: 146/75 MAP: 99. HR: 85. RR: 16. O2 saturation: 93% Temperature: 97.6 F (oral). Pain level now 6/10. -- 21:12/23/24 EDT Ethan Carroll R.N. Measurements: 21:12/23/24 Wt: 52.2 kg, Ht/Ronald: 62.0 in, BMI: 21.03 -- 21:12/23/24 EDT Ethan Carroll R.N. Medications: 1 of 4 Nurse Narrative ropinirole 2 mg tablet: 1 tablet twice a day . (Per patient's home medication list) -- 21:12/23/24 EDT Ethan Carroll R.N. gabapentin 300 mg capsule -- 21:12/23/24 EDT Ethan Carroll R.N. celecoxib 200 mg capsule -- 21:12/23/24 EDT Ethan Carroll R.N. bupropion HCl XL 150 mg 24 hr tablet, extended release -- 21:12/23/24 EDT Ethan Carroll R.N. atorvastatin 10 mg tablet -- 21:12/23/24 EDT Ethan Carroll R.N. alprazolam 1 mg tablet -- 21:12/23/24 EDT Ethan Carroll R.N. alendronate 70 mg tablet -- 21:12/23/24 EDT Ethan Carroll R.N. magnesium 250 mg (as magnesium oxide) tablet -- 21:12/23/24 EDT Ethan Carroll R.N. epinephrine 0.3 mg/0.3 mL injection, auto-injector -- 21:12/23/24 EDT Ethan Carroll R.N. cholecalciferol (vitamin D3) 1,250 mcg (50,000 unit) capsule -- 21:12/23/24 EDT Ethan Carroll R.N. cephalexin 500 mg capsule: 1 capsule four times a day. Stopped 12/24/2024. -- 00:12/24/24 EDT Oswald Cordova D.O. cephalexin 500 mg capsule: 1 capsule four times a day. -- 00:12/24/24 EDT Oswald Cordova D.O.Updated through eRx -- 00:12/24/24 EDT Oswald Cordova D.O. 21:12/23/24. Preferred Pharmacy: ([facility]). -- :12/23/24 EDT Ethan Carroll R.N. Allergies: Macrodantin -- 21:12/23/24 EDT Ethan Carroll R.N. Sulfa (Sulfonamide Antibiotics) -- :12/23/24 EDT Ethan Carroll R.N. Problems: Multiple Sclerosis -- 21:12/23/24 EDT Ethan Carroll R.N. TIA - Transient Ischemic Attack: Onset 2021 -- 21:12/23/24 EDT Ethan Carroll R.N. Arthritis -- 21:12/23/24 EDT Ethan Carroll R.N. Anemia -- 21:12/23/24 EDT Ethan Carroll R.N. Surgeries: no known surgical history -- 21:12/23/24 EDT Ethan Carroll R.N. History 21:12/23/24. 2 of 4 Nurse Narrative PAST MEDICAL HX: Immunizations: Tetanus status: unknown. Other immunizations: status is unknown. SOCIAL HX: Former smoker, end date 38 years ago. No alcohol use or drug use. The patient has not traveled outside the [place] Infectious disease exposure: No infectious disease exposure. ABUSE ASSESSMENT: The patient answered yes to the question(s) Do you feel safe in your home? and no to the question(s) Are you afraid to go home?. SELF HARM ASSESSMENT: Self harm assessment was performed. The patient answered no to the question(s) Have you recently felt down, depressed, or hopeless? and Do you have thoughts of harming or killing yourself?. FALL RISK ASSESSMENT: Fall risk assessment completed. Risk factors identified include patient age greater than 65 years, history of fall and impairment of mobility. Fall interventions initiated. Side rails up x2. Bed in low position. Brakes on. Patient visible from nurses' station and identified as a fall risk. Patient in yellow slippers. Call light in reach of patient. Instructed not to get up without assistance. -- 21:12/23/24 EDT Ethan Carroll R.N. Interventions 21:12/23/24. Identification band on patient. Advanced care plan. It is unknown if patient has advanced directive. -- :12/23/24 EDT Ethan Carroll R.N. PHYSICAL ASSESSMENT 21:35 12/23/24. GENERAL / NEURO / PSYCH: Alert. Oriented X 4. Appears in no acute distress. HEENT: Pupils equal, round and reactive to light. RESPIRATORY: Respirations not labored. Breath sounds within normal limits. CVS: Pulses within normal limits. Capillary refill is greater than 3 seconds (bilateral lower legs). EXTREMITIES: Right elbow: tenderness. Left leg: tenderness. SKIN: Skin is warm and dry. -- 21:35 (more content not included)... Normal [facility] ED ORDER SHEET (CPOE ONLY)on 12-24-2024 ED ORDER SHEET (CPOE ONLY) Order Sheet Order Sheet [address] [place] [address] [id number] 12/23/2024 Patient: DAVIDSON RICO Sex: Female : 1945 Age: 79y MEASUREMENTS: Wt: 52.2 kg, Ht/Ronald: 62.0 in, BMI: 21.03 ALLERGIES: Macrodantin, Sulfa (Sulfonamide Antibiotics) MEDICATION/IV/DRIP/FL UID ORDERS Order Description Priority Entered Acknowledged Completed cefTRIAXone (Rocephin) IVPB 00:18 12/24/2024 00:29 00:36 1gm/50ml NS1 g diluted in Oswald Cordova D.O. 12/24/2024 12/24/2024 sodium chloride IVPB 0.9 % Mally Santos, Minibag+ 50 mL at 100 mL/hr R.N. R.N. (NOW x1) LAB ORDERS Order Description Priority Entered Acknowledged Collected Completed CBC w Diff Stat Stat 21:19 12/23/2024 21:20 12/23/2024 21:36 12/23/2024 Mally Kim Alisha Whytsell, D.OVioletta R.N. R.N. CMP Stat Stat 21:19 12/23/2024 21:20 12/23/2024 21:36 12/23/2024 Mally Kim Alisha Whytsell, D.O. R.N. R.N. Urinalysis Stat Stat 21:19 12/23/2024 21:20 12/23/2024 23:57 12/23/2024 Mally Kim, Mally Reed, 1 of 3 Order Sheet D.O. R.N. R.N. Troponin-I Stat Stat 21:19 12/23/2024 21:20 12/23/2024 21:36 12/23/2024 Mally Kim Alisha Whytsell, D.OVioletta R.N. R.N. CPK (CK) Stat Stat 21:19 12/23/2024 Cancelled: Other Oswald Cordova, 21:27 EDT Oswald Cordova D.O. D.O. EKG - ED Stat Stat 22:57 12/23/2024 22:58 12/23/2024 23:24 12/23/2024 Mally Kim Alisha Whytsell, D.O. R.N. RViolettaNVioletta DIAGNOSTIC STUDY ORDERS Order Description Priority Entered Acknowledged Completed CT Brain wo Cont Stat Stat 21:19 12/23/2024 21:20 22:12 Oswald Cordova D.O. 12/23/2024 12/23/2024 Mally Santos R.N. R.N. Order Comments: 21:19 12/23/2024: Status: Not . Oswald Cordova D.O. Reason for Study: Trauma/Injury CT C-Spine wo Cont Stat Stat 21:19 12/23/2024 21:20 22:12 Oswald Cordova D.O. 12/23/2024 12/23/2024 Mally Santos R.N. R.N. Order Comments: 21:19 12/23/2024: Status: Not . Oswald Cordova D.O. Reason for Study: Trauma/Injury Chest 1V Stat Stat 21:19 12/23/2024 21:20 22:12 Oswald Cordova D.O. 12/23/2024 12/23/2024 Mally Santos R.N. RViolettaNVioletta 2 of 3 Order Sheet Order Comments: 21:19 12/23/2024: Status: Not . Oswald Cordova D.O. Reason for Study: Trauma/Injury Knee R 2V Stat Stat 21:30 12/23/2024 Cancelled: Other Oswald Cordova D.O. 21:37 EDT Oswald Cordova D.O. Reason for Study: Trauma/Injury Knee R Complete Stat Stat 21:36 12/23/2024 21:37 22:12 Oswald Cordova D.O. 12/23/2024 12/23/2024 Mally Santos R.N. R.NVioletta Reason for Study: Knee Pain STAFF ORDERS Order Description Priority Entered Acknowledged Collected Completed [employer] 21:19 12/23/2024 21:20 12/23/2024 21:36 12/23/2024 Mally Kim Alisha Whytsell, D.O. R.NVioletta R.NVioletta Pulse Oximeter 21:19 12/23/2024 21:20 12/23/2024 21:37 12/23/2024 Mally Kim Alisha Whytsell, D.O. R.NVioletta RViolettaN. Straight Cath patient for 23:48 12/23/2024 23:57 12/23/2024 23:57 12/23/2024 UA Mally Kim Alisha Whytsell, D.O. R.NVioletta RViolettaNVioletta [Electronically signed by Oswald Cordova D.O. (12/24/2024 03:20 EDT)] 3 of 3 Normal [facility] ED PHYSICIAN CLINICAL REPORT on 12-24-2024 ED PHYSICIAN CLINICAL REPORT Narrative Physician Clinical Narrative [address] [place] [address] [id number] 12/23/2024 21:02:00 Patient: DAVIDSON RICO Sex: Female : 1945 Age: 79y Disposition: Discharge to [facility] Disposition Decision Time: 00:28 12/24/2024 Departure Time: 02:41 12/24/2024 Measurements Wt: 52.2 kg, Ht/Ronald: 62.0 in, BMI: 21.03 Initial Vital Sign Measured Time BP MAP HR RR O2Sat ETCO2 Temp Pain GCS RTS 21:08 12/23/2024 146/75 99 85 16 93% 97.6 F 6 Time Seen: 21:17 12/23/2024. Arrived- By ambulance. HISTORY OF PRESENT ILLNESS Chief Complaint: FALL. Location of injuries- right knee. Fell. Occurred (shelter). ( This is a 79-year-old female who presents to the emergency department today via EMS. Patient reportedly had a fall out of her wheelchair, was found with a wheelchair on top of her. Unsure exactly how long she was down for however she states that she did eat dinner today. She denies any head strike, denies any loss of consciousness. Denies any neck pain. She does localize pain to her right knee. She denies any blood thinner use. No nausea, vomiting, lightheadedness, dizziness. She does answer all orientation questions appropriately however his slow to do so and does require some redirection. Paramedics reported stable vital signs in route, no deviation from the patient's baseline. 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 The patient complains of mild pain. No blow to the head, neck pain or loss of consciousness. 1 of 12 Narrative REVIEW OF SYSTEMS GI: No nausea, abdominal pain or vomiting. RESPIRATORY: No difficulty breathing. CVS: No chest pain. NEUROLOGICAL: No numbness, dizziness, weakness or headache. Status: Not . PAST HISTORY See nurses notes. history of MS. Anemia Arthritis Multiple Sclerosis TIA - Transient Ischemic Attack: Onset 2021 Surgeries: no known surgical history Medications: alendronate 70 mg tablet alprazolam 1 mg tablet atorvastatin 10 mg tablet bupropion HCl XL 150 mg 24 hr tablet, extended release celecoxib 200 mg capsule cephalexin 500 mg capsule: 1 capsule four times a day. Stopped 12/24/2024. cholecalciferol (vitamin D3) 1,250 mcg (50,000 unit) capsule epinephrine 0.3 mg/0.3 mL injection, auto-injector gabapentin 300 mg capsule magnesium 250 mg (as magnesium oxide) tablet ropinirole 2 mg tablet: 1 tablet twice a day . (Per patient's home medication list) Allergies: Macrodantin Sulfa (Sulfonamide Antibiotics) SOCIAL HISTORY 2 of 12 Narrative Former smoker. No alcohol use or drug use. Resides in a shelter. ADDITIONAL NOTES The nursing notes have been reviewed. PHYSICAL EXAM Vital Signs: Have been reviewed. Appearance: Alert. Oriented X3. No acute distress. Head: Head non-tender. No swelling of head. Eyes: Pupils equal, round and reactive to light. EOM intact. Neck: Non-tender. CVS: Heart sounds normal. Respiratory: No respiratory distress. Chest nontender. Abdomen: No visible injury. Soft. Back: No tenderness. Skin: Skin intact. Skin warm and dry. Extremities: Right knee: mild tenderness. No erythema, swelling or laceration. (pain to palpation of the right knee, no other sites of pain to palpation of the bilateral upper or lower extremities.). Neuro: Oriented X 3. No alteration in mental status. No sensory deficit. (Chronic contractures at the neck, bilateral upper and lower extremities). LABS, X-RAYS, AND EKG Diagnostic Tests: Diagnostic tests have been ordered, with results reviewed and considered in the medical decision making process. 12-LEAD EKG: EKG time: 23:00 12/24/2024. No acute process. No acute ischemia. Normal sinus rhythm. Normal ST and T waves. Prior EKG unavailable. The study has been interpreted contemporaneously by me. Interpretation time: 00:05 12/24/2024. X-Rays: Right knee negative. Chest X-ray negative. The X-rays were independently viewed by me. Laboratory Tests: CBC + DIFF Final BERENICE: 12/23/2024 21:15:00 EDT MsgRcvd: 12/23/2024 21:35 EDT 3 of 12 Narrative Lab Test Result Reference Status Received Comments 12/23/2024 21:35 CBC-COMPLETE CBC + DIFF Final EDT BLOOD COUNT 12/23/2024 21:35 WBC 4.5 x 10/UL 4.5 - 10.8 Final EDT 12/23/2024 21:35 RBC 4.68 x 10/UL 4.10 - 5.30 Final EDT 12/23/2024 21:35 HEMOGLOBIN 14.9 g/dl 12.0 - 16.0 Final EDT 12/23/2024 21:35 HEMATOCRIT 43.1 % 34.0 - 46.0 Final EDT 12/23/2024 21:35 MCV 92 fl 80 - 99 Final EDT 12/23/2024 21:35 MCH 32 pg 27 - 33 Final EDT 12/23/2024 21:35 MCHC 35 X10 3 32 - 36 Final EDT 12/23/2024 21:35 RDW/CV 13.5 % 12.0 - 15.6 Final EDT 90 x10/UL 12/23/2024 21:35 PLATELET 150 - 450 Final Below low normal EDT 12/24/19 (more content not included)... Normal [facility] ED SUPER BILLon 12-24-2024 ED [facility] [address] [place] [address] [phone] 12/23/2024 Patient: DAVIDSON RICO Sex: Female : 1945 Age: 79y Item Facility Professional Category Description Code Code Quantity Fee Total Nurse/E/M EMERGENCY 168697 1 $0.00 $0.00 DEPARTMENT VISIT HIGH/URGENT SEVERITY (92458-24) Nurse/IV/IM/Infusions Drip/IVPB initial 267783 1 $0.00 $0.00 (53894) Grand Total $0.00 Providers Oswald Cordova D.O. Chief Complaint FALL. Principal Diagnosis 1 of 2 Superbill Contusion to the right knee. Acute urinary tract infection with cystitis. No hematuria. Fall from chair. ICD-10 Codes W07.xxxA: Fall from chair, initial encounter S80.01xA: Contusion of right knee, initial encounter N30.90: Cystitis, unspecified without hematuria 2 of 2 Normal [facility] ED VISIT SUMMARYon ED VISIT SUMMARY Visit Overview Visit Overview [address] [place] [address] [id number] 12/23/2024 Patient: DAVIDSON RICO Sex: Female : 1945 Age: 79y 12/24/2024 04:53 AM EDT ED Arrival:21:02 12/23/2024 EDT Status:not Recent Travel:no Language:eng Adv Directive:Unknown Isolation Status: Ethnicity:N Fall Risk:risk Infectious Disease Exposure:no Measurements:5'2 / 157.5 Self-Harm Status:risk Sepsis Screen:negative cm 115.0 lb / 52.2 kg Chief Complaint:fell onto the ground, from a wheelchair, (6/10 right arm pain, unable to describe pain), and (pt fell out of chair, unsure how, was able to call for help, nursing staff had pt transported here for evaluation, pt c/o right arm pain, denies any neck or head pain.) ALLERGIES Macrodantin Sulfa (Sulfonamide Antibiotics) 1 of 4 Visit Overview HOME MEDICATIONS alendronate 70 mg tablet alprazolam 1 mg tablet atorvastatin 10 mg tablet bupropion HCl XL 150 mg 24 hr tablet, extended release celecoxib 200 mg capsule cephalexin 500 mg capsule: 1 capsule four times a day. Stopped 12/24/2024. cholecalciferol (vitamin D3) 1,250 mcg (50,000 unit) capsule epinephrine 0.3 mg/0.3 mL injection, auto-injector gabapentin 300 mg capsule magnesium 250 mg (as magnesium oxide) tablet ropinirole 2 mg tablet: 1 tablet twice a day . (Per patient's home medication list) PAST MEDICAL HISTORY / PROBLEMS Anemia Arthritis Immunizations: Tetanus status: unknown Multiple Sclerosis Other immunizations: status is unknown See nurses notes TIA - Transient Ischemic Attack: Onset 2021 PAST SURGICAL HISTORY No Surgeries SOCIAL HISTORY Smoking status: No Alcohol use: No Drug use: No ED COURSE MEDICATIONS GIVEN IN EMERGENCY DEPARTMENT cefTRIAXone (Rocephin) IVPB 1gm/50ml NS 1 g diluted in sodium chloride IVPB 0.9 % 00:34 12/24/24 Minibag+ 50 mL 100 mL/hr 2 of 4 Visit Overview IV SITE INFORMATION INTAKE OUTPUT REASSESMENT (most recent) 21:35 12/23/24. GENERAL / NEURO / PSYCH: Alert. Oriented X 4. Appears in no acute distress. HEENT: Pupils equal, round and reactive to light. RESPIRATORY: Respirations not labored. Breath sounds within normal limits. CVS: Pulses within normal limits. Capillary refill is greater than 3 seconds (bilateral lower legs). EXTREMITIES: Right elbow: tenderness. Left leg: tenderness. SKIN: Skin is warm and dry. VITAL SIGNS First Vitals Last Vitals Temp 21:12/23/24 97.6 F Temp 02:12/24/24 BP 21:12/23/24 146/75 BP 02:12/24/24 HR 21:12/23/24 85 HR 02:12/24/24 86 RR 21:12/23/24 16 RR 02:12/24/24 O2 Sat 21:12/23/24 93% O2 Sat 02:12/24/24 96% Pain 21:12/23/24 6 Pain 02:12/24/24 ETCO2 21:12/23/24 ETCO2 02:12/24/24 GCS 21:12/23/24 GCS 02:12/24/24 RTS 21:12/23/24 RTS 02:28 12/24/24 PROCEDURES NURSING INTERVENTIONS Urinary catheter LABS / STUDIES LABS / STUDIES ORDERED CBC w Diff Chest 1V CMP CT Brain wo Cont CT C-Spine wo Cont 3 of 4 Visit Overview EKG - ED Knee R Complete Troponin-I Urinalysis CLINICAL IMPRESSION ACUTE URINARY TRACT INFECTION WITH CYSTITIS. NO HEMATURIA CONTUSION TO THE RIGHT KNEE FALL FROM CHAIR 4 of 4 Normal [facility] ED VITALS FLOW SHEETon 12-24 ED VITALS FLOW SHEET Vitals Vital Sign Flow Sheet [facility] [address] [place] [address] [phone] 12/23/2024 Patient: DAVIDSON RICO Sex: Female : 1945 Age: 79y Measurements Wt: 52.2 kg, Ht/Ronald: 62.0 in, BMI: 21.03 Measured Time BP MAP HR RR O2Sat ETCO2 Temp Pain GCS RTS 02:28 12/24/2024 86 96% 02:12/24/2024 89 97% 02:18 12/24/2024 85 97% 02:12/24/2024 85 97% 02:08 12/24/2024 88 96% 02:03 12/24/2024 87 96% 01:58 12/24/2024 85 96% 01:53 12/24/2024 85 96% 01:48 12/24/2024 86 97% 01:43 12/24/2024 82 96% 01:38 12/24/2024 81 96% 01:33 12/24/2024 81 98% 01:28 12/24/2024 80 96% 01:23 12/24/2024 83 95% 01:18 12/24/2024 81 96% 1 of 3 Vitals Measured Time BP MAP HR RR O2Sat ETCO2 Temp Pain GCS RTS 01:12/24/2024 79 95% 01:08 12/24/2024 79 94% 01:03 12/24/2024 78 95% 00:58 12/24/2024 79 94% 00:53 12/24/2024 79 95% 00:48 12/24/2024 79 95% 00:43 12/24/2024 80 95% 00:38 12/24/2024 79 95% 00:33 12/24/2024 78 95% 00:28 12/24/2024 79 94% 00:23 12/24/2024 78 95% 00:18 12/24/2024 77 95% 00:13 12/24/2024 78 96% 00:08 12/24/2024 79 95% 00:03 12/24/2024 79 97% 23:58 12/23/2024 78 96% 23:53 12/23/2024 83 98% 23:48 12/23/2024 80 98% 23:43 12/23/2024 78 95% 23:38 12/23/2024 76 97% 23:33 12/23/2024 78 97% 23:28 12/23/2024 85 95% 23:23 12/23/2024 84 99% 23:18 12/23/2024 86 99% 23:13 12/23/2024 86 99% 2 of 3 Vitals Measured Time BP MAP HR RR O2Sat ETCO2 Temp Pain GCS RTS 23:08 12/23/2024 79 98% 23:03 12/23/2024 78 97% 22:58 12/23/2024 76 97% 22:53 12/23/2024 77 98% 22:48 12/23/2024 77 98% 22:43 12/23/2024 81 96% 22:38 12/23/2024 79 95% 22:33 12/23/2024 80 95% 22:28 12/23/2024 79 95% 22:23 12/23/2024 80 95% 22:18 12/23/2024 78 95% 22:13 12/23/2024 79 95% 22:08 12/23/2024 78 96% 22:03 12/23/2024 77 95% 21:58 12/23/2024 77 96% 21:53 12/23/2024 77 95% 21:48 12/23/2024 81 96% 21:08 12/23/2024 146/75 99 85 16 93% 97.6 F 6 3 of 3 Normal [facility] URINALYSISon 12-24-2024 Amorphous NONE Normal [facility] Comment on above: Performed By: #### 2 [id number] #### [facility],[address] [place] [address] 68941 Bacteria 4+ Normal [facility] Comment on above: Performed By: #### 2 71756 #### [facility],[address] [place] [address] 06573 Bilirubin Ql (U) Negative Normal NORMAL: NEGATIVE [facility] Comment on above: Performed By: #### 2 74408 #### [facility],[address] [place] [address] 65273 Casts NONE Normal [facility] Comment on above: Performed By: #### 2 20508 #### [facility],[address] [place] [address] 54533 Clarity (U) clear Normal NORMAL: CLEAR [facility] Comment on above: Performed By: #### 2 27796 #### [facility],[address] [place] [address] 15945 Color (U) yellow Normal NORMAL: YELLOW [facility] Comment on above: Performed By: #### 2 86745 #### [facility],[address] [place] [address] 77166 Crystals LM Nom (Urine sed) NONE Normal [facility] Comment on above: Performed By: #### 2 13092 #### [facility],[address] [place] [address] 69262 Epi Cells FEW Normal [facility] Comment on above: Performed By: #### 2 38615 #### [facility],[address] [place] [address] 92466 Glucose Ql (U) NORM Normal NORMAL: NORMAL [facility] Comment on above: Performed By: #### 2 79292 #### [facility],[address] [place] [address] 26964 Hemoglobin Ql (U) 10 Abnormal NORMAL: NEGATIVE [facility] Comment on above: Performed By: #### 2 03872 #### [facility],[address] [place] [address] 01296 Ketone Negative Normal NORMAL: NEGATIVE [facility] Comment on above: Performed By: #### 2 45609 #### [facility],[address] [place] [address] 18057 Leukocytes 500 Abnormal NORMAL: NEGATIVE [facility] Comment on above: Performed By: #### 2 29245 #### [facility],[address] [place] [address] Mucous 1+ Normal [facility] Comment on above: Performed By: #### 2 52840 #### [facility],[address] [place] [address] Nitrite Ql (U) Positive Normal NORMAL: NEGATIVE [facility] Comment on above: Performed By: #### 2 76252 #### [facility],[address] [place] [address] pH (U) 6.5 [pH] Normal NORMAL: 5.0-8.0 [facility] Comment on above: Performed By: #### 2 95103 #### [facility],[address] [place] [address] Protein Ql (U) 15 Abnormal NORMAL: NEGATIVE [facility] Comment on above: Performed By: #### 2 41333 #### [facility],[address] [place], [place] [phone] Rbc 0-5 Normal 0-3/hpf [facility] Comment on above: Performed By: #### 2 53487 #### [facility],[address] [place] [address] Sp Truxton 1.020 Normal NORMAL: 1.010-1.030 [facility] Comment on above: Performed By: #### 2 94479 #### [facility],[address] [place] [address] Specimen Type R Normal [facility] Comment on above: Performed By: #### 2 85717 #### [facility],[address] [place] [address] 78166 Urinalysis dipstick W Reflex Microscopic panel (U) SEE BELOW Normal [facility] Comment on above: Result Comment: MICR OSCOPIC Performed By: #### 2 59423 #### [facility],[address] [place] [address] 55360 Urobilinog NORM Normal NORMAL: NORMAL [facility] Comment on above: Performed By: #### 2 61981 #### [facility],[address] [place] [address] 25713 Wbc 11-15 Normal 0-5/hpf [facility] Comment on above: Performed By: #### 2 87648 #### [facility],[address] [place] [address] 23879 Yeast NONE Normal [facility] Comment on above: Performed By: #### 2 04196 #### [facility],[address] [place] [address] 66808 CBC + DIFFon 12-23-2024 Baso # 0.01 x10EE3/UL Normal 0.00 - 0.10 [facility] Comment on above: Performed By: #### 2 82314 #### [facility],[address] [place] [address] 86845 Basophils/100 WBC (Bld) 0.3 % Normal 0.0 - 2.0 [facility] Comment on above: Performed By: #### 2 56649 #### [facility],[address] [place] [address] 07134 CBC + DIFF Normal [facility] Comment on above: Result Comment: CBC- COMPLETE BLOOD COUNT Performed By: #### 2 75795 #### [facility],[address] [place] [address] 83846 EO # 0.02 x10EE3/UL Normal 0.00 - 0.50 [facility] Comment on above: Performed By: #### 2 24216 #### [facility],[address] [place], [place] [phone] Eosinophils/100 WBC (Bld) 0.5 % Normal 0.0 - 7.0 [facility] Comment on above: Performed By: #### 2 47397 #### [facility],[address] [place] [address] Erythrocyte distribution width (RBC) [Ratio] 13.5 % Normal 12.0 - 15.6 [facility] Comment on above: Performed By: #### 2 38349 #### [facility],[address] [place] [address] Hematocrit (Bld) [Volume fraction] 43.1 % Normal 34.0 - 46.0 [facility] Comment on above: Performed By: #### 2 04606 #### [facility],[address] [place] [address] Hemoglobin (Bld) [Mass/Vol] 14.9 g/dL Normal 12.0 - 16.0 [facility] Comment on above: Performed By: #### 2 63004 #### [facility],[address] [place] [address] Lymph # 1.01 x10EE3/UL Normal 0.80 - 2.80 [facility] Comment on above: Performed By: #### 2 26979 #### [facility],[address] [place], [place] [phone] Lymphocytes/100 WBC (Bld) 22.7 % Normal 20.0 - 45.0 [facility] Comment on above: Performed By: #### 2 81665 #### [facility],[address] [place] [address] MANUAL DIFF N/A Normal [facility] Comment on above: Performed By: #### 2 09322 #### [facility],[address] [place] [address] MCH (RBC) [Entitic mass] 32 pg Normal 27 - 33 [facility] Comment on above: Performed By: #### 2 78959 #### [place] [address] MCHC 35 X10 3 Normal 32 - 36 [facility] Comment on above: Performed By: #### 2 31252 #### [facility],[address] [place] [address] MCV (RBC) [Entitic vol] 92 fL Normal 80 - 99 [facility] Comment on above: Performed By: #### 2 83412 #### [place] [address] Dane # 0.32 x10EE3/UL Normal 0.20 - 1.00 [facility] Comment on above: Performed By: #### 2 47547 #### [facility],[address] [place] [address] MONOS % 7.3 % Normal 0.0 - 10.0 [facility] Comment on above: Performed By: #### 2 09845 #### [facility],[address] [place] [address] Morphology Francisco (Bld) [Interp] N/A Normal [facility] Comment on above: Performed By: #### 2 04319 #### [place] [address] Neut # 3.08 x10EE3/UL Normal 1.50 - 7.10 [facility] Comment on above: Performed By: #### 2 42944 #### [place] [address] Neutrophils/100 WBC (Bld) 69.2 % Normal 46.0 - 76.0 [facility] Comment on above: Performed By: #### 2 48001 #### [place] [id number] PLATELET 90 x10EE3/UL Low 150 - 450 [facility] Comment on above: Performed By: #### 2 25222 #### [facility],[address] [place] [address] 23341 Platelet mean volume (Bld) [Entitic vol] 9.7 fL Normal 6.6 - 10.5 [facility] Comment on above: Result Comment: AUTO MATED DIFFERENTIAL Performed By: #### 2 60616 #### [facility],[address] [place] [address] 10603 RBC 4.68 x 10EE6/UL Normal 4.10 - 5.30 [facility] Comment on above: Performed By: #### 2 31809 #### [facility],[address] [place] [address] 91297 WBC 4.5 x 10EE3/UL Normal 4.5 - 10.8 [facility] Comment on above: Performed By: #### 2 37527 #### [facility],[address] [place] [address] 01563 CHEST 1 VIEWon 12-23-2024 CHEST 1 VIEW [place] [id number] Patient: DAVIDSON RICO Phone#: : 1945 Age: 79 Gender: F Pt. Type: ER Account: [id number] Location: 05 Ordering: OSWALD CORDOVA Exam Date: 12/23/2024/21:28 Family Phys: NESHA BHAGAT Charge Code: [id number] Physician: Collin Order #: [id number] Dose#: PROCEDURE: X-RAY CHEST 1 VIEW COMPARISON: [facility], XR, CHEST 1 VIEW, 11/23/2024, 13:14. INDICATIONS: Chest pain. FINDINGS: LUNGS: Chronic interstitial changes are present. There is mild elevation the left hemidiaphragm. VASCULATURE: Normal. Unremarkable pulmonary vasculature. CARDIAC: Normal. No cardiac silhouette abnormality or cardiomegaly. MEDIASTINUM: The aorta is ectatic. PLEURA: Normal. No effusion or pleural thickening. BONES: Normal. No fracture or visible bony lesion. OTHER: Negative. CONCLUSION: No acute disease. No significant change has occurred. Dictated by: Christine Randall MD on 12/25/2024 at 11:38 Approved by: Christine Randall MD on 12/25/2024 at 11:39 Normal [facility] CMP with eGFRon 12-23-2024 AGE 79 years Normal [facility] Comment on above: Performed By: #### 2 83329 #### [facility],[address] [place] [address] 31605 Albumin [Mass/Vol] 3.6 g/dL Normal 3.4 - 5.0 [facility] Comment on above: Performed By: #### 2 22266 #### [facility],[address] [place], [place] [id number] Albumin/Globulin [Mass ratio] 1.2 {ratio} Normal 0.9 - 1.6 [facility] Comment on above: Performed By: #### 2 73459 #### [facility],[address] [place] [address] 18634 ALK PHOS 75 U/L Normal 46 - 116 [facility] Comment on above: Performed By: #### 2 93199 #### [facility],[address] [place] [address] 50149 ALT [Catalytic activity/Vol] 35 U/L Normal 16 - 63 [facility] Comment on above: Performed By: #### 2 11855 #### [facility],[address] [place] [address] 10643 Anion gap [Moles/Vol] 12 mmol/L Normal 10 - 20 [facility] Comment on above: Performed By: #### 2 10441 #### [facility],[address] [place] [address] 39390 AST [Catalytic activity/Vol] 26 U/L Normal 13 - 39 [facility] Comment on above: Performed By: #### 2 35650 #### [facility],[address] [place] [address] 77497 B/C RATIO 40 ratio High 0 - 30 [facility] Comment on above: Performed By: #### 2 85609 #### [facility],[address] [place] [address] 64464 Bilirubin [Mass/Vol] 0.6 mg/dL Normal 0.2 - 1.0 [facility] Comment on above: Performed By: #### 2 86357 #### [facility],[address] [place], [place] [phone] Calcium [Mass/Vol] 9.1 mg/dL Normal 8.5 - 10.1 [facility] Comment on above: Performed By: #### 2 80112 #### [facility],[address] [place], [place] [phone] Chloride [Moles/Vol] 104 mmol/L Normal 98 - 107 [facility] Comment on above: Performed By: #### 2 33206 #### [facility],[address] [place] [address] CMP with eGFR Normal [facility] Comment on above: Result Comment: COMP REHENSIVE METABOLIC PANEL Performed By: #### 2 75902 #### [facility],[address] [place] [address] 61200 CO2 [Moles/Vol] 25.2 mmol/L Normal 21.0 - 32.0 [facility] Comment on above: Performed By: #### 2 55506 #### [facility],[address] [place] [address] 30307 Creatinine [Mass/Vol] 0.50 mg/dL Low 0.55 - 1.02 [facility] Comment on above: Performed By: #### 2 69380 #### [facility],[address] [place], [place] [phone] GFR/1.73 sq M.predicted among non-blacks MDRD (S/P/Bld) [Vol rate/Area] mL/min/{1.73_m2} Normal 60 - 999 [facility] Comment on above: Performed By: #### 2 20813 #### [facility],[address] [place] [address] Result Comment: ACCO RDING TO THE NATIONAL KIDNEY DISEASE EDUCATION PROGRAM(NKDE), A NORMAL eGFR IS A VALUE GREATER THAN OR EQUAL TO 60 ML/MIN/1.73 SQ METERS. CHRONIC KIDNEY DISEASE: <60mL/MIN/1.73 SQ METERS KIDNEY FAILURE: <15mL/MIN/1.73 SQ METERS THIS TEST SHOULD ONLY BE USED FOR PATIENTS 18 YEARS OF AGE AND OLDER. Globulin (S) [Mass/Vol] 2.9 g/dL Normal 1.5 - 3.8 [facility] Comment on above: Performed By: #### 2 57227 #### [facility],[address] [place] [address] Glucose [Mass/Vol] 148 mg/dL High 74 - 106 [facility] Comment on above: Performed By: #### 2 54222 #### [place] [address] Potassium [Moles/Vol] 4.0 mmol/L Normal 3.5 - 5.1 [facility] Comment on above: Performed By: #### 2 46922 #### [facility],[address] [place], [place] [phone] Protein [Mass/Vol] 6.5 g/dL Normal 6.4 - 8.2 [facility] Comment on above: Performed By: #### 2 60492 #### [facility],[address] [place] [address] Sodium [Moles/Vol] 137 mmol/L Normal 136 - 145 [facility] Comment on above: Performed By: #### 2 97859 #### [address] [address] Urea nitrogen [Mass/Vol] 20 mg/dL High 7 - 18 [facility] Comment on above: Performed By: #### 2 62537 #### [facility],[address] [place] [address] BRAIN W/O CONTRASTon 07-0 CT BRAIN W/O CONTRAST [address] [address] Patient: DAVIDSON RICO Phone#: : 1945 Age: 79 Gender: F Pt. Type: ER Account: [id number] Location: [facility] Ordering: OSWALD CORDOVA Exam Date: 12/23/2024/21:28 Family Phys: NESHA BHAGAT Charge Code: [id number] Physician: Collin Order #: [id number] Dose#: 56.8 mGy PROCEDURE: CT BRAIN WITHOUT CONTRAST COMPARISON: [facility], CT, BRAIN W/O CON, 02/10/2021, 20:08. INDICATIONS: FELL. TECHNIQUE: CT images were obtained without contrast material. All CT scans at this facility use dose modulation, iterative reconstruction, and/or weight based dosing when appropriate to reduce radiation dose to as low as reasonably achievable. IV CONTRAST: No IV contrast used,ml TOTAL DOSE: 56.8 CTDIvol(mGy) FINDINGS: CEREBRUM: Age-appropriate atrophy is present, without visible acute hemorrhage or lesion. Small vessel disease changes are present. CEREBELLUM: No edema, hemorrhage, mass, acute infarction, or inappropriate atrophy. BRAINSTEM: No edema, hemorrhage, mass, acute infarction, or inappropriate atrophy. CSF SPACES: Ventricles, cisterns, and sulci are appropriate for age. No hydrocephalus, subarachnoid hemorrhage, or mass. SKULL: No mass or other significant visible lesion. SINUSES: Mucosal thickening is present in the ethmoid sinuses. ORBITS: Limited views are unremarkable. OTHER: Negative. CONCLUSION: 1. There is no evidence of acute intracranial abnormality. Dictated by: Christine Randall MD on 12/24/2024 at 20:15 Approved by: Christine Randall MD on 12/24/2024 at 20:18 Normal [facility] CT CERVICAL W/O CONTRASTon 0 12-23-2024 CT CERVICAL W/O CONTRAST [address] [address] Patient: DAVIDSON RICO Phone#: : 1945 Age: 79 Gender: F Pt. Type: ER Account: [id number] Location: 052 Ordering: OSWALD CORDOVA Exam Date: 12/23/2024/21:28 Family Phys: NESHA BHAGAT Charge Code: [id number] Physician: Collin Order #: [id number] Dose#: 6.0 mGy PROCEDURE: CT CERVICAL WITHOUT CONTRAST COMPARISON: [facility], CT, CERVICAL W/O CON, 02/10/2021, 20:08. INDICATIONS: Fell TECHNIQUE: Multi-planar CT images were created without intravenous contrast. All CT scans at this facility use dose modulation, iterative reconstruction, and/or weight-based dosing when appropriate to reduce radiation dose to as low as reasonably achievable. IV CONTRAST: No IV contrast used,ml TOTAL DOSE: 6.0 CTDIvol(mGy) FINDINGS: CRANIOCERVICAL AREA: Normal foramen magnum with no Chiari malformation. PARASPINAL AREA: Normal with no visible mass. BONES: There is reversal cervical lordosis. CERVICAL DISC LEVELS: C2-C3: There is minimal anterolisthesis. Bony hypertrophy is present. C3-C4: Bony hypertrophy is present. C4-C5: Disc space narrowing is present. There is bony hypertrophy with the. C5-C6: Disc space narrowing is present. Foraminal is present bilaterally greater on the right to bony hypertrophy. C6-C7: Disc space is present. Bony hypertrophy is present with narrowing of the foramina bilaterally. C7-T1: Disc space narrowing is present. There is sclerosis at the vertebral body endplates subcortical irregularity. Findings may be on the basis of degenerative change. Discitis cannot be excluded. Bony hypertrophy is present with mild foraminal narrowing. CONCLUSION: 1. Severe degenerative changes are present. There is reversal of the normal cervical lordosis. 2. There is no evidence of acute fracture or subluxation. Continued Report - Page 2 of 2 Patient: DAVIDSON RICO Phone#: : 1945 Age: 79 Gender: F Pt. Type: ER Account: [id number] Location: 052 Ordering: OSWALD CORDOVA Exam Date: 12/23/2024/21:28 Family Phys: NESHA BHAGAT Charge Code: [id number] Physician: Collin Order #: [id number] Dose#: 6.0 mGy Dictated by: Christine Randall MD on 12/25/2024 at 10:38 Approved by: Christine Randall MD on 12/25/2024 at 10:44 Normal [facility] KNEE COMPLETE RT MIN 4 VIEWS on 12-23-2024 KNEE COMPLETE RT MIN 4 VIEWS [place] [address] Patient: DAVIDSON RICO Phone#: : 1945 Age: 79 Gender: F Pt. Type: ER Account: [id number] Location: 052 Ordering: OSWALD CORDOVA Exam Date: 12/23/2024/21:38 Family Phys: NESHA BHAGAT Charge Code: [id number] Physician: Collin Order #: [id number] Dose#: PROCEDURE: X-RAY KNEE RT COMPLETE 4 VIEWS COMPARISON: None. INDICATIONS: Injury. FINDINGS: BONES: Normal. No significant arthropathy or acute abnormality. SOFT TISSUES: Negative. No visible soft tissue swelling. EFFUSION: None visible. OTHER: Negative. CONCLUSION: No acute disease. Dictated by: Christine Randall MD on 12/25/2024 at 11:39 Approved by: Christine Randall MD on 12/25/2024 at 11:40 Normal [facility] TROPONINon 12-23-2024 HS TROPONIN 4.1 pg/mL Normal 0.0 - 51.4 [facility] Comment on above: Performed By: #### 2 34497 #### [facility],[address] [place] [address] CBC + DIFFon 11-23-2024 Baso # 0.01 x10EE3/UL Normal 0.00 - 0.10 [facility] Comment on above: Performed By: #### 2 54201 #### [facility],[address] [place], [place] [phone] Basophils/100 WBC (Bld) 0.1 % Normal 0.0 - 2.0 [facility] Comment on above: Performed By: #### 2 34785 #### [facility],[address] [place] [address] CBC + DIFF Normal [facility] Comment on above: Result Comment: CBC- COMPLETE BLOOD COUNT Performed By: #### 2 78739 #### [facility],[address] [place] [address] EO # 0.05 x10EE3/UL Normal 0.00 - 0.50 [facility] Comment on above: Performed By: #### 2 16757 #### [facility],[address] [place], [place] [address] Eosinophils/100 WBC (Bld) 0.8 % Normal 0.0 - 7.0 [facility] Comment on above: Performed By: #### 2 95547 #### [facility],[address] [place] [address] Erythrocyte distribution width (RBC) [Ratio] 13.4 % Normal 12.0 - 15.6 [facility] Comment on above: Performed By: #### 2 08730 #### [facility],[address] [place] [address] Hematocrit (Bld) [Volume fraction] 44.4 % Normal 34.0 - 46.0 [facility] Comment on above: Performed By: #### 2 27591 #### [facility],[address] [place], [place] [address] Hemoglobin (Bld) [Mass/Vol] 15.1 g/dL Normal 12.0 - 16.0 [facility] Comment on above: Performed By: #### 2 54500 #### [facility],[address] [place] [address] Lymph # 0.80 x10EE3/UL Normal 0.80 - 2.80 [facility] Comment on above: Performed By: #### 2 34944 #### [facility],[address] [place] [address] Lymphocytes/100 WBC (Bld) 12.6 % Low 20.0 - 45.0 [facility] Comment on above: Performed By: #### 2 52256 #### [facility],[address] [place] [address] MANUAL DIFF N/A Normal [facility] Comment on above: Performed By: #### 2 70424 #### [facility],[address] [place], [place] [phone] MCH (RBC) [Entitic mass] 30 pg Normal 27 - 33 [facility] Comment on above: Performed By: #### 2 81265 #### [facility],[address] [place], [place] [address] MCHC 34 X10 3 Normal 32 - 36 [facility] Comment on above: Performed By: #### 2 06052 #### [facility],[address] [place], [place] [phone] MCV (RBC) [Entitic vol] 89 fL Normal 80 - 99 [facility] Comment on above: Performed By: #### 2 10770 #### [facility],[address] [place] [address]1862 Dane # 0.35 x10EE3/UL Normal 0.20 - 1.00 [facility] Comment on above: Performed By: #### 2 44246 #### [facility],[address] [place] [address] 94866 MONOS % 5.5 % Normal 0.0 - 10.0 [facility] Comment on above: Performed By: #### 2 75713 #### [facility],[address] [place] [address] 09030 Morphology Francisco (Bld) [Interp] N/A Normal [facility] Comment on above: Performed By: #### 2 73582 #### [facility],[address] [place] [address] Neut # 5.13 x10EE3/UL Normal 1.50 - 7.10 [facility] Comment on above: Performed By: #### 2 66778 #### [facility],[address] [place] [address] Neutrophils/100 WBC (Bld) 80.9 % High 46.0 - 76.0 [facility] Comment on above: Performed By: #### 2 73361 #### [facility],[address] [place], [place] [phone] PLATELET 90 x10EE3/UL Low 150 - 450 [facility] Comment on above: Performed By: #### 2 96865 #### [facility],[address] [place], [place] [phone] Platelet mean volume (Bld) [Entitic vol] 9.2 fL Normal 6.6 - 10.5 [facility] Comment on above: Result Comment: AUTO MATED DIFFERENTIAL Performed By: #### 2 54619 #### [facility],[address] [place] [address] 46483 RBC 5.00 x 10EE6/UL Normal 4.10 - 5.30 [facility] Comment on above: Performed By: #### 2 25622 #### [facility],[address] [place], [place] [address] WBC 6.3 x 10EE3/UL Normal 4.5 - 10.8 [facility] Comment on above: Performed By: #### 2 53223 #### [facility],[address] [place] [address]3757 CHEST 1 VIEWon 11-23-2024 CHEST 1 VIEW [place] [id number] Patient: DAVIDSON RICO Phone#: : 1945 Age: 79 Gender: F Pt. Type: ER Account: [id number] Location: [facility] Ordering: DR. TUAN RASHID Exam Date: 11/23/2024/13:14 Family Phys: NESHA BHAGAT Charge Code: [id number] Physician: Collin Order #: [id number] Dose#: PROCEDURE: X-RAY CHEST 1 VIEW COMPARISON: [facility], XR, CHEST 1 VIEW, 02/10/2021, 20:14. INDICATIONS: Shortness of breath. FINDINGS: LUNGS: Lungs are hyperinflated. There is elevation of the left hemidiaphragm. There is hazy increased density in the right lower thorax. Findings consistent with atelectasis versus infiltrate. VASCULATURE: Normal. Unremarkable pulmonary vasculature. CARDIAC: Normal. No cardiac silhouette abnormality or cardiomegaly. MEDIASTINUM: Normal. No visible mass or adenopathy. PLEURA: Normal. No effusion or pleural thickening. BONES: There is curvature of the thoracic spine to the right. OTHER: Negative. CONCLUSION: 1. Hazy right lower lobe infiltrate versus atelectasis. 2. COPD. Dictated by: Christine Randall MD on 11/23/2024 at 13:49 Approved by: Christine Randall MD on 11/23/2024 at 13:55 Normal [facility] CMP with eGFRon 11-23-2024 AGE 79 years Normal [facility] Comment on above: Performed By: #### 2 11444 #### [facility],[address] [place] [address] 60536 Albumin [Mass/Vol] 3.6 g/dL Normal 3.4 - 5.0 [facility] Comment on above: Performed By: #### 2 69686 #### [facility],[address] [place] [address] 09005 Albumin/Globulin [Mass ratio] 1.2 {ratio} Normal 0.9 - 1.6 [facility] Comment on above: Performed By: #### 2 27688 #### [facility],[address] [place] [address] 18469 ALK PHOS 80 U/L Normal 46 - 116 [facility] Comment on above: Performed By: #### 2 28957 #### [facility],[address] [place] [address] 05335 ALT [Catalytic activity/Vol] 22 U/L Normal 16 - 63 [facility] Comment on above: Performed By: #### 2 20503 #### [facility],[address] [place] [address] 04493 Anion gap [Moles/Vol] 11 mmol/L Normal 10 - 20 [facility] Comment on above: Performed By: #### 2 40264 #### [facility],[address] [place] [address] 87418 AST [Catalytic activity/Vol] 19 U/L Normal 13 - 39 [facility] Comment on above: Performed By: #### 2 82032 #### [facility],[address] [place] [address] 56340 B/C RATIO 27 ratio Normal 0 - 30 [facility] Comment on above: Performed By: #### 2 81682 #### [facility],[address] [place] [address]346 Bilirubin [Mass/Vol] 0.8 mg/dL Normal 0.2 - 1.0 [facility] Comment on above: Performed By: #### 2 90823 #### [facility],[address] [place] [address] 19513 Calcium [Mass/Vol] 9.6 mg/dL Normal 8.5 - 10.1 [facility] Comment on above: Performed By: #### 2 44431 #### [facility],[address] [place] [address] 38349 Chloride [Moles/Vol] 104 mmol/L Normal 98 - 107 [facility] Comment on above: Performed By: #### 2 93085 #### [facility],[address] [place] [address]1373 CMP with eGFR Normal [facility] Comment on above: Result Comment: COMP REHENSIVE METABOLIC PANEL Performed By: #### 2 97790 #### [facility],[address] [place] [address] 93172 CO2 [Moles/Vol] 30.2 mmol/L Normal 21.0 - 32.0 [facility] Comment on above: Performed By: #### 2 30760 #### [facility],[address] [place] [address] 12734 Creatinine [Mass/Vol] 0.59 mg/dL Normal 0.55 - 1.02 [facility] Comment on above: Performed By: #### 2 73715 #### [facility],[address] [place] [address] 24909 GFR/1.73 sq M.predicted among non-blacks MDRD (S/P/Bld) [Vol rate/Area] mL/min/{1.73_m2} Normal 60 - 999 [facility] Comment on above: Performed By: #### 2 74929 #### [facility],[address] [place] [address] Result Comment: ACCO RDING TO THE NATIONAL KIDNEY DISEASE EDUCATION PROGRAM(NKDE), A NORMAL eGFR IS A VALUE GREATER THAN OR EQUAL TO 60 ML/MIN/1.73 SQ METERS. CHRONIC KIDNEY DISEASE: <60mL/MIN/1.73 SQ METERS KIDNEY FAILURE: <15mL/MIN/1.73 SQ METERS THIS TEST SHOULD ONLY BE USED FOR PATIENTS 18 YEARS OF AGE AND OLDER. Globulin (S) [Mass/Vol] 3.0 g/dL Normal 1.5 - 3.8 [facility] Comment on above: Performed By: #### 2 90839 #### [facility],[address] [place] [address] 50897 Glucose [Mass/Vol] 83 mg/dL Normal 74 - 106 [facility] Comment on above: Performed By: #### 2 59822 #### [facility],[address] [place] [address] 74282 Potassium [Moles/Vol] 4.3 mmol/L Normal 3.5 - 5.1 [facility] Comment on above: Performed By: #### 2 65697 #### [facility],[address] [place] [address] 89345 Protein [Mass/Vol] 6.6 g/dL Normal 6.4 - 8.2 [facility] Comment on above: Performed By: #### 2 53651 #### [facility],[address] [place] [address] Sodium [Moles/Vol] 141 mmol/L Normal 136 - 145 [facility] Comment on above: Performed By: #### 2 21077 #### [facility],[address] [place], [place] [phone] Urea nitrogen [Mass/Vol] 16 mg/dL Normal 7 - 18 [facility] Comment on above: Performed By: #### 2 19662 #### [facility],[address] [place], [place] [phone] CORONAVIRUS (SARS) ANTIGEN T ESTon 11-23-2024 EXTERNAL QC DONE? YES Normal [facility] Comment on above: Performed By: #### 2 88642 #### [facility],[address] [place] [address] INTERNAL CONTROL PASS Normal [facility] Comment on above: Performed By: #### 2 59646 #### [facility],[address] [place] [address] 72004 SARS ANTIGEN Negative Normal NORMAL: NEGATIVE [facility] Comment on above: Performed By: #### 2 76146 #### [facility],[address] [place] [address] 74993 SEND TO ? NO Normal [facility] Comment on above: Result Comment: SARS -CoV-2 THIS TEST IS BEING USED UNDER THE FDA EUA PROCEDURE. THIS ASSAY HAS BEEN VALIDATED AT [facility] FOR USE WITH NASAL AND NASOPHARYNGEAL SWAB SPECIMENS. INTERPRETIVE DATA TEST RESULTS SHOULD ALWAYS BE CONSIDERED IN THE CONTEXT OF CLINICAL OBSERVATIONS AND EPIDEMIOLOGICAL DATA IN MAKING FINAL DIAGNOSIS AND PATIENT MANAGEMENT DECISIONS. PATIENT MANAGEMENT SHOULD FOLLOW CURRENT CDC GUIDELINES. THE BRIANA SARS ANTIGEN TERRELL DOES NOT DIFFERENTIATE BETWEEN SARS-CoV & SARS-CoV-2. A POSITIVE TEST RESULT INDICATES THE PRESENCE OF SARS-CoV-2 NUCLEOCAPSID PROTEIN ANTIGEN, AND THE PATIENT IS INFECTED WITH THE VIRUS AND PRESUMED TO BE CONTAGIOUS. A NEGATIVE TEST RESULT FOR THIS TEST MEANS THAT SARS-CoV-2 NUCLEOCAPSID PROTEIN ANTIGEN WAS NOT PRESENT IN THE SPECIMEN ABOVE THE LIMIT OF DETECTION. HOWEVER, A NEGATIVE RESULT DOES NOT RULE OUT COVID-19 AND SHOULD NOT BE USED THE SOLE BASIS FOR TREATMENT OR PATIENT MANAGEMENT DECISIONS. A NEGATIVE RESULT DOES NOT EXCLUDE THE POSSIBILITY OF COVID-19. NEGATIVE RESULTS, FROM PATIENTS WITH SYMPTOM ONSET BEYOND FIVE DAYS, SHOULD BE TREATED PRESUMPTIVE AND CONFIRMATION WITH A MOLECULAR ASSAY, IF NECESSARY, FOR PATIENT MANAGEMENT, MAY BE PERFORMED. WHEN DIAGNOSTIC TESTING IS NEGATIVE, THE POSSIBLILTY OF A FALSE NEGATIVE RESULT SHOULD BE CONSIDERED IN THE CONTEXT OF A PATIENT'S RECENT EXPOSURES AND THE PRESENCE OF CLINICAL SIGNS AND SYMPTOMS CONSISTENT WITH COVID-19. THE POSSIBILITY OF A FALSE NEGATIVE RESULT SHOULD ESPECIALLY BE CONSIDERED IF THE PATIENT'S RECENT EXPOSURES OR CLINICAL PRESENTATION INDICATE THAT COVID-19 IS LIKELY, AND DIAGNOSTIC TESTS FOR OTHER CAUSES OF ILLNESS (e.g., OTHER RESPIRATORY ILLNESS) ARE NEGATIVE. IF COVID-19 IS STILL SUSPECTED BASED ON EXPOSURE HISTORY TOGETHER WITH OTHER CLINICAL FINDINGS, RE-TESTING SHOULD BE CONSIDERED BY HEALTHCARE PROVIDERS IN CONSULTATION WITH PUBLIC HEALTH AUTHORITIES. Performed By: #### 2 [id number] #### [facility],[address] [place] [address]31 ED MED ADMINISTRATION DETAIL on 11-23-2024 ED MED ADMINISTRATION DETAIL [employer] Medication Administration Record [address] [place] [address] [id number] 11/23/2024 Patient: DAVIDSON RICO Sex: Female : 1945 Age: 79y MEASUREMENTS: Wt: 47.6 kg, Ht/Ronald: 62.0 in, BMI: 19.20 ALLERGIES: Macrodantin Medication Ordered Medication Administration Date/Time 1 of Normal [facility] ED NURSES CLINICAL NOTEon ED NURSES CLINICAL NOTE Nurse Narrative Nurse Clinical Narrative [facility] [address] [place] [address] [id number] 11/23/2024 12:28:00 Patient: DAVIDSON RICO Sex: Female : 1945 Age: 79y Disposition: Discharge to Home Disposition Decision Time: 15:52 11/23/2024 Departure Time: 15:55 11/23/2024 TRIAGE Arrived by EMS, and from home. Historian: (patient). Primary physician (Radha). Triage time: 12:33 11/23/2024. Acuity: LEVEL 3. Chief Complaint: DEPRESSION. This started today. ( Patient's this morning in hospice care at [facility]. Patient's gjyzwv-rf-gqj came over to the patient's home and was concerned because the patient refused to get out of bed and was refusing to answer her questions. Patient states that her mind was sluggish this morning because she was grasping the reality of her 's passing. Patient denies any complaints at this time. Patient denies wanting to harm herself but acknowledges that she is sad about her 's passing.). SEPSIS SCREEN: NEGATIVE. SIRS criteria negative. -- 12:50 11/23/24 EDT Nneka Mayberry R.N. 12:48 11/23/24. BP: 143/77 MAP: 99. HR: 89. RR: 16. O2 saturation: 98% on room air. Temperature: 98.4 F (oral). Pain level now 0/10. -- 12:48 11/23/24 EDT Nneka Mayberry R.N. Measurements: 12:47 11/23/24 Wt: 47.6 kg, Ht/Ronald: 62.0 in, BMI: 19.20 -- 12:47 11/23/24 ANILA Mayberry R.N. Medications: 1 of 4 Nurse Narrative ropinirole 2 mg tablet: 1 tablet twice a day. (Per patient's home medication list) -- 13:11/23/24 ANILA Mayberry R.N. gabapentin 300 mg capsule: TAKE ONE CAPSULE BY MOUTH TWICE DAILY FOR RLS -- 13:11/23/24 ANILA Mayberry R.N. celecoxib 200 mg capsule: TAKE 1 CAPSULE BY MOUTH TWICE DAILY NEEDED FOR PAIN -- 13:11/23/24 ANILA Mayberry R.N. bupropion HCl XL 150 mg 24 hr tablet, extended release: TAKE 2 TABLETS BY MOUTH DAILY -- 13:11/23/24 ANILA Mayberry R.N. atorvastatin 10 mg tablet: TAKE 1 TABLET BY MOUTH AT BEDTIME -- 13:11/23/24 ANILA Mayberry R.N. alprazolam 1 mg tablet: TAKE 1 TABLET BY MOUTH AT BEDTIME -- 13:11/23/24 ANILA Mayberry R.N. alendronate 70 mg tablet: TAKE 1 TABLET BY MOUTH 1 TIME A WEEK -- 13:11/23/24 ANILA Mayberry R.N. magnesium 250 mg (as magnesium oxide) tablet: TAKE 1 TABLET BY MOUTH TWICE DAILY -- 13:11/23/24 ANILA Mayberry R.N. epinephrine 0.3 mg/0.3 mL injection, auto-injector -- 13:11/23/24 ANILA Mayberry R.N. cholecalciferol (vitamin D3) 1,250 mcg (50,000 unit) capsule: TAKE 1 CAPSULE BY MOUTH EVERY 7 DAYS -- 13:11/23/24 ANILA Mayberry R.N. Allergies: Macrodantin -- 12:41 11/23/24 ANILA Mayberry R.N. Problems: Multiple Sclerosis -- 12:41 11/23/24 ANILA Mayberry R.N. TIA - Transient Ischemic Attack: Onset 2021 -- 12:42 11/23/24 EDT Nneka Mayberry R.N. Arthritis -- 12:43 11/23/24 EDT Nneka Mayberry R.N. Anemia -- 12:43 11/23/24 EDT Nneka Mayberry R.N. Surgeries: no known surgical history -- 12:44 11/23/24 EDT Nneka Mayberry R.N. History 12:33 11/23/24. SOCIAL HX: Former smoker. No alcohol use or drug use. The patient has not traveled outside the [place] Infectious disease exposure: No infectious disease exposure. 2 of 4 Nurse Narrative ABUSE ASSESSMENT: The patient answered yes to the question(s) Do you feel safe in your home? and no to the question(s) Are you afraid to go home?. SELF HARM ASSESSMENT: Self harm assessment was performed. The patient answered yes to the question(s) Have you recently felt down, depressed, or hopeless? and Have you noticed less interest or pleasure in doing things? and no to the question(s) Do you have thoughts of harming or killing yourself?, Do you have a plan for harming or killing yourself?, Have you recently had thoughts about harming or killing others?, Do you have any dangerous items in your possession?, Are you here because you tried to hurt yourself? and Have you ever tried to hurt yourself before today?. (Patient is cooperative, calm.). The ED physician has been notified. Precautions taken: (Patient's this morning.). FALL RISK ASSESSMENT: Fall risk assessment completed. Risk factors identified include patient age greater than 65 years and impairment of mobility. Fall interventions initiated. Patient placed on stretcher. Side rails up x2. Bed in low position. Brakes on. Patient visible from nurses' station and identified as a fall risk by ID band. Call light in reach of patient. Instructed not to get up without assistance. Instructions given to patient including fall prevention information. Verbalizes understanding. -- 12:50 11/23/24 EDT Nneka Mayberry R.N. Interventions 12:33 11/23/24. Identification band, allergy band and fall band on patient. Advanced care plan discussed with (more content not included)... Normal [facility] ED ORDER SHEET (CPOE ONLY)on 11-23-2024 ED ORDER SHEET (CPOE ONLY) Order Sheet Order Sheet [place] [address] [place] [address] [id number] 11/23/2024 Patient: DAVIDSON RICO Sex: Female : 1945 Age: 79y MEASUREMENTS: Wt: 47.6 kg, Ht/Ronald: 62.0 in, BMI: 19.20 ALLERGIES: Macrodantin MEDICATION/IV/DRIP/FL UID ORDERS Order Description Priority Entered Acknowledged Completed LAB ORDERS Order Description Priority Entered Acknowledged Collected Completed CBC w Diff Stat Stat 13:12 11/23/2024 13:24 11/23/2024 13:58 11/23/2024 Nneka Jay Katelyn Horst, M.D. R.N. R.N. CMP Stat Stat 13:12 11/23/2024 13:24 11/23/2024 13:58 11/23/2024 Nneka Jay Katelyn Horst, M.D. R.N. R.N. Lactate, Serum Stat Stat 13:12 11/23/2024 13:24 11/23/2024 13:58 11/23/2024 Nneka Jay Katelyn Horst, M.D. R.N. R.N. Urinalysis Stat Stat 13:12 11/23/2024 13:24 11/23/2024 14:31 11/23/2024 Nneka Jay Katelyn Horst, 1 of 2 Order Sheet Marycruz ThompsonN. R.N. Rapid COVID (SARS) Stat 13:12 11/23/2024 13:24 11/23/2024 13:58 11/23/2024 ANTIGEN TEST Stat Nneka Jay Katelyn Horst, M.D. R.N. R.N. EKG - ED Stat Stat 13:12 11/23/2024 13:24 11/23/2024 13:58 11/23/2024 Nneka Jay Katelyn Horst, M.D. R.N. R.N. DIAGNOSTIC STUDY ORDERS Order Description Priority Entered Acknowledged Completed Chest 1V Stat Stat 13:12 11/23/2024 13:24 13:25 Tuan Rashid M.D. 11/23/2024 11/23/2024 Nneka Sorenson R.N. R.N. Reason for Study: Shortness of Breath STAFF ORDERS Order Description Priority Entered Acknowledged Collected Completed IV Saline Lock 13:12 11/23/2024 13:24 11/23/2024 13:58 11/23/2024 Nneka Jay Katelyn Horst, M.D. R.N. R.N. [Electronically signed by Tuan Rashid M.D. (11/23/2024 15:43 EDT)] 2 of 2 Normal [facility] ED PHYSICIAN CLINICAL REPORT on 11-23-2024 ED PHYSICIAN CLINICAL REPORT Narrative Physician Clinical Narrative [address] [address] [id number] 11/23/2024 12:28:00 Patient: DAVIDSON RICO Sex: Female : 1945 Age: 79y Measurements Wt: 47.6 kg, Ht/Ronald: 62.0 in, BMI: 19.20 Initial Vital Sign Measured Time BP MAP HR RR O2Sat ETCO2 Temp Pain GCS RTS 12:48 11/23/2024 143/77 99 89 16 98% RA 98.4 F 0 Time Seen: 12:49 11/23/2024. Arrived- By ambulance. Historian- patient. Independent historian- family. HISTORY OF PRESENT ILLNESS Chief Complaint: Weakness. This started today Patient has a history of MS and is very debilitated. She can not ambulate. She requires lot of assistance. She was being care for by her . He recently was admitted at [facility] where he suffered complications from a kidney stone and then developed a head bleed. He is placed in hospice and the patient just found out this morning that he had . Her gvqbsz-jg-uym has been staying with her since her was hospitalized according to the lnitoz-iv-ila yesterday she was able to help with some of her care. When she found her today in the morning she had gotten herself into her chair but since that time has not really been able to move she can not manage her. She can not get her up. The patient states she is just having profound grief. She will not really answer specific questions. She is not complaining of any pain. Apparently other family members are coming into the area but have not arrived as of yet. The patient has a history of frequent UTIs. Has not had a fever. Has not been vomiting. She has not really been eating or drinking much. REVIEW OF SYSTEMS 1 of 15 Narrative SKIN: No skin rash. NEUROLOGICAL: No headache or blackouts. The patient has had difficulty with ambulation. MUSCULOSKELETAL: No back pain. CONSTITUTIONAL: No fever or chills. THROAT: No sore throat. NOSE: No sinus drainage or nasal congestion. RESPIRATORY: No cough or difficulty breathing. CVS: No chest pain or calf pain. GI: No abdominal pain, nausea, vomiting or diarrhea. : No difficulty with urination. PAST HISTORY See nurses notes. Anemia Arthritis Multiple Sclerosis TIA - Transient Ischemic Attack: Onset 2021 Surgeries: no known surgical history Medications: alendronate 70 mg tablet: TAKE 1 TABLET BY MOUTH 1 TIME A WEEK alprazolam 1 mg tablet: TAKE 1 TABLET BY MOUTH AT BEDTIME atorvastatin 10 mg tablet: TAKE 1 TABLET BY MOUTH AT BEDTIME bupropion HCl XL 150 mg 24 hr tablet, extended release: TAKE 2 TABLETS BY MOUTH DAILY celecoxib 200 mg capsule: TAKE 1 CAPSULE BY MOUTH TWICE DAILY NEEDED FOR PAIN cholecalciferol (vitamin D3) 1,250 mcg (50,000 unit) capsule: TAKE 1 CAPSULE BY MOUTH EVERY 7 DAYS epinephrine 0.3 mg/0.3 mL injection, auto-injector gabapentin 300 mg capsule: TAKE ONE CAPSULE BY MOUTH TWICE DAILY FOR RLS magnesium 250 mg (as magnesium oxide) tablet: TAKE 1 TABLET BY MOUTH TWICE DAILY ropinirole 2 mg tablet: 1 tablet twice a day. (Per patient's home medication list) Allergies: Macrodantin SOCIAL HISTORY Never smoker. ADDITIONAL NOTES 2 of 15 Narrative The nursing notes have been reviewed. PHYSICAL EXAM Vital Signs: Have been reviewed. Appearance: Alert. No acute distress. Eyes: Pupils equal, round and reactive to light. Eyes normal inspection. ENT: Ears normal. Pharynx normal. Neck: Normal inspection. No meningeal signs or JVD. (head is leaning to the left which is normal. She has a history of scoliosis and torticollis). CVS: Normal heart rate. Heart sounds normal. Pulses normal. Respiratory: No respiratory distress. Breath sounds normal. Chest nontender. Abdomen: No visible injury. Soft and nontender. No mass. Back: Normal inspection. Skin: Skin warm. Normal skin color. No rash. Normal skin turgor. Extremities: Lower extremity edema. Neuro: Oriented X 3. (diffusely weak. Can barely move her legs. I am not sure how far off baseline that is). LABS, X-RAYS, AND EKG 12-LEAD EKG: No acute ischemia. Normal sinus rhythm. Rate: 87. Artifact present. Laboratory Tests: CBC + DIFF Final BERENICE: 11/23/2024 13:50:00 EDT MsgRcvd: 11/23/2024 14:42 EDT Lab Test Result Reference Status Received Comments 11/23/2024 14:42 CBC-COMPLETE CBC + DIFF Final EDT BLOOD COUNT 11/23/2024 14:42 WBC 6.3 x 10/UL 4.5 - 10.8 Final EDT 11/23/2024 14:42 RBC 5.00 x 10/UL 4.10 - 5.30 Final EDT 3 of 15 Narrative Lab Test Result Reference Status Received Comments 11/23/2024 14:42 HEMOGLOBIN 15.1 g/dl 12.0 - 16.0 Final EDT 11/23/2024 14:42 HEMATOCRIT 44.4 % 34.0 - 46.0 Final EDT 11/23/2024 14:42 MCV 89 fl 80 - 99 Final EDT 11/23/2024 14:42 MCH 30 pg 27 - 33 Final EDT 11/23/2024 14:42 MCHC 34 X10 3 32 - 36 Final EDT 11/23/2024 14:42 RDW/CV 13. (more content not included)... Normal [facility] ED [facility] 11-23-2024 ED [facility] [address] [place] [address] [id number] 11/23/2024 Patient: DAVIDSON RICO Sex: Female : 1945 Age: 79y Professional Category Item Description Facility Code Code Quantity Fee Total Nurse/E/M EMERGENCY 627618 1 $0.00 $0.00 DEPT VISIT HIGH SEVERITYFUNCJ (56083-72) Grand Total $0.00 Providers Tuan Rashid M.D. Chief Complaint Weakness. Principal Diagnosis Generalized weakness. weakness grief. ICD-10 Codes 1 of 2 Superbill R53.1: Weakness 2 of 2 Normal [facility] ED VISIT SUMMARYon ED VISIT SUMMARY Visit Overview Visit Overview [address] [address] [id number] 11/23/2024 Patient: DAVIDSON RICO Sex: Female : 1945 Age: 79y 11/23/2024 04:08 PM EDT ED Arrival:12:28 11/23/2024 EDT Status: Recent Travel:no Language:eng Adv Directive:Yes (DNR) Isolation Status: Ethnicity:N Fall Risk:risk Infectious Disease Exposure:no Measurements:5'2 / 157.5 Self-Harm Status:risk Sepsis Screen:negative cm 105.0 lb / 47.6 kg 1 of 4 Visit Overview Chief Complaint:DEPRESSION, (Kalisetti), and (Patient's this morning in hospice care at [facility]. Patient's cegsmr-rm-pwb came over to the patient's home and was concerned because the patient refused to get out of bed and was refusing to answer her questions. Patient states that her mind was sluggish this morning because she was grasping the reality of her 's passing. Patient denies any complaints at this time. Patient denies wanting to harm herself but acknowledges that she is sad about her 's passing.) ALLERGIES Macrodantin HOME MEDICATIONS alendronate 70 mg tablet: TAKE 1 TABLET BY MOUTH 1 TIME A WEEK alprazolam 1 mg tablet: TAKE 1 TABLET BY MOUTH AT BEDTIME atorvastatin 10 mg tablet: TAKE 1 TABLET BY MOUTH AT BEDTIME bupropion HCl XL 150 mg 24 hr tablet, extended release: TAKE 2 TABLETS BY MOUTH DAILY celecoxib 200 mg capsule: TAKE 1 CAPSULE BY MOUTH TWICE DAILY NEEDED FOR PAIN cholecalciferol (vitamin D3) 1,250 mcg (50,000 unit) capsule: TAKE 1 CAPSULE BY MOUTH EVERY 7 DAYS epinephrine 0.3 mg/0.3 mL injection, auto-injector gabapentin 300 mg capsule: TAKE ONE CAPSULE BY MOUTH TWICE DAILY FOR RLS magnesium 250 mg (as magnesium oxide) tablet: TAKE 1 TABLET BY MOUTH TWICE DAILY ropinirole 2 mg tablet: 1 tablet twice a day. (Per patient's home medication list) 4 Visit Overview PAST MEDICAL HISTORY / PROBLEMS Anemia Arthritis Multiple Sclerosis See nurses notes TIA - Transient Ischemic Attack: Onset 2021 PAST SURGICAL HISTORY No Surgeries SOCIAL HISTORY Smoking status: No Alcohol use: No Drug use: No ED COURSE MEDICATIONS GIVEN IN EMERGENCY DEPARTMENT IV SITE INFORMATION INTAKE OUTPUT REASSESMENT (most recent) 13:36 11/23/24. GENERAL / NEURO / PSYCH: Alert. Oriented X 4. Appears in no acute distress. (sad). HEENT: Pupils equal, round and reactive to light. RESPIRATORY: Respirations not labored. Breath sounds within normal limits. CVS: Normal sinus rhythm noted. Capillary refill less than 2 seconds. Pulses within normal limits. GI / : Abdomen soft and nontender. EXTREMITIES: Moderate rigidity present (to neck). The patient was unable to bear weight. (at baseline due to MS). The patient has weakness. SKIN: Skin intact. Skin is warm and dry. VITAL SIGNS First Vitals Last Vitals Temp 12:48 11/23/24 98.4 F Temp 15:50 11/23/24 3 of 4 Visit Overview First Vitals Last Vitals BP 12:48 11/23/24 143/77 BP 15:50 11/23/24 HR 12:48 11/23/24 89 HR 15:50 11/23/24 RR 12:48 11/23/24 16 RR 15:11/23/24 16 O2 Sat 12:48 11/23/24 98% RA O2 Sat 15:50 11/23/24 Pain 12:48 11/23/24 0 Pain 15:50 11/23/24 0 ETCO2 12:48 11/23/24 ETCO2 15:50 11/23/24 GCS 12:48 11/23/24 GCS 15:50 11/23/24 RTS 12:48 11/23/24 RTS 15:50 11/23/24 PROCEDURES NURSING INTERVENTIONS Urinary catheter LABS / STUDIES LABS / STUDIES ORDERED CBC w Diff Chest 1V CMP EKG - ED Lactate, Serum Rapid COVID (SARS) ANTIGEN TEST Urinalysis CLINICAL IMPRESSION GENERALIZED WEAKNESS 4 of 4 Normal [facility] ED VITALS FLOW SHEETon 11-23 ED VITALS FLOW SHEET Vitals Vital Sign Flow Sheet [facility] [address] [place] [address] [id number] 11/23/2024 Patient: DAVIDSON RICO Sex: Female : 1945 Age: 79y Measurements Wt: 47.6 kg, Ht/Ronald: 62.0 in, BMI: 19.20 Measured Time BP MAP HR RR O2Sat ETCO2 Temp Pain GCS RTS 15:50 11/23/2024 16 0 15:37 11/23/2024 94 97% 15:33 11/23/2024 118/53 74 84 15:32 11/23/2024 87 97% 15:27 11/23/2024 89 97% 15:22 11/23/2024 87 97% 15:18 11/23/2024 127/71 85 86 15:17 11/23/2024 89 97% 15:12 11/23/2024 90 97% 15:07 11/23/2024 87 97% 15:03 11/23/2024 110/64 77 87 15:02 11/23/2024 86 96% 14:57 11/23/2024 88 96% 14:52 11/23/2024 82 95% 14:48 11/23/2024 121/61 73 80 1 of 2 Vitals Measured Time BP MAP HR RR O2Sat ETCO2 Temp Pain GCS RTS 14:47 11/23/2024 83 95% 14:42 11/23/2024 82 95% 14:37 11/23/2024 82 95% 14:33 11/23/2024 117/63 81 80 14:32 11/23/2024 81 95% 14:27 11/23/2024 84 95% 12:48 11/23/2024 143/77 99 89 16 98% RA 98.4 F 0 2 of 2 Normal [facility] LACTATEon 11-23-2024 Lactate [Moles/Vol] 1.2 mmol/L Normal 0.4 - 2.0 [facility] Comment on above: Performed By: #### 2 [id number] #### [facility],[address] [place] [address] 15241 URINALYSISon 11-23-2024 Amorphous NONE Normal [facility] Comment on above: Performed By: #### 2 25199 #### [facility],[address] [place] [address] 15960 Bacteria 4+ Normal [facility] Comment on above: Performed By: #### 2 16292 #### [facility],[address] [place] [address] 44489 Bilirubin Ql (U) Negative Normal NORMAL: NEGATIVE [facility] Comment on above: Performed By: #### 2 92569 #### [facility],[address] [place] [address] 53618 Casts SEE BELOW Normal [facility] Comment on above: Performed By: #### 2 71741 #### [facility],[address] [place] [address] 11208 Clarity (U) clear Normal NORMAL: CLEAR [facility] Comment on above: Performed By: #### 2 93716 #### [facility],[address] [place] [address] 92008 Color (U) susana Normal NORMAL: YELLOW [facility] Comment on above: Performed By: #### 2 95616 #### [facility],[address] [place] [address] 52922 Crystals LM Nom (Urine sed) NONE Normal [facility] Comment on above: Performed By: #### 2 [id number] #### [facility],[address] [place] [address] 17412 Epi Cells OCC Normal [facility] Comment on above: Performed By: #### 2 18408 #### [facility],[address] [place] [address] 23546 Glucose Ql (U) NORM Normal NORMAL: NORMAL [facility] Comment on above: Performed By: #### 2 95815 #### [facility],[address] [place] [address] 65203 Hemoglobin Ql (U) 10 Abnormal NORMAL: NEGATIVE [facility] Comment on above: Performed By: #### 2 [id number] #### [facility],[address] [place] [address] 01243 Hyaline 1-5 Normal NORMAL: NONE [facility] Comment on above: Performed By: #### 2 91509 #### [facility],[address] [place] [address] 91851 Ketone 5 Abnormal NORMAL: NEGATIVE [facility] Comment on above: Performed By: #### 2 16146 #### [facility],[address] [place] [address] 69166 Leukocytes Negative Normal NORMAL: NEGATIVE [facility] Comment on above: Performed By: #### 2 07785 #### [facility],[address] [place] [address] 54529 Mucous 2+ Normal [facility] Comment on above: Performed By: #### 2 46173 #### [facility],[address] [place] [address] 69916 Nitrite Ql (U) Positive Normal NORMAL: NEGATIVE [facility] Comment on above: Performed By: #### 2 21575 #### [facility],[address] [place] [address] 78970 pH (U) 6 [pH] Normal NORMAL: 5.0-8.0 [facility] Comment on above: Performed By: #### 2 00105 #### [facility],[address] [place] [address] 64586 Protein Ql (U) 15 Abnormal NORMAL: NEGATIVE [facility] Comment on above: Performed By: #### 2 49867 #### [facility],[address] [place] [address] Rbc 0-5 Normal 0-3/hpf [facility] Comment on above: Performed By: #### 2 59532 #### [facility],[address] [place] [address] Sp Truxton 1.025 Normal NORMAL: 1.010-1.030 [facility] Comment on above: Performed By: #### 2 75515 #### [facility],[address] [place] [address] Specimen Type R Normal [facility] Comment on above: Performed By: #### 2 [id number] #### [facility],[address] [place] [address] Urinalysis dipstick W Reflex Microscopic panel (U) SEE BELOW Normal [facility] Comment on above: Result Comment: MICR OSCOPIC Performed By: #### 2 [id number] #### [facility],[address] [place], [place] [id number] Urobilinog NORM Normal NORMAL: NORMAL [facility] Comment on above: Performed By: #### 2 25526 #### [facility],[address] [place] [address] Wbc 1-5 Normal 0-5/hpf [facility] Comment on above: Performed By: #### 2 69376 #### [facility],[address] [place], [place] [id number] Yeast NONE Normal [facility] Comment on above: Performed By: #### 2 18610 #### [facility],[address] [place], [place] [id number] CBC (NO DIFF)on 08-17-2024 CBC panel Auto (Bld) Normal [facility] Comment on above: Result Comment: CBC( WITHOUT DIFFERENTIAL) Performed By: #### 2 [id number] #### [facility],[address] [place] [address]10 Erythrocyte distribution width (RBC) [Ratio] 12.9 % Normal 12.0 - 15.6 [facility] Comment on above: Performed By: #### 2 63742 #### [facility],[address] [place] [address] 38898 Hematocrit (Bld) [Volume fraction] 42.3 % Normal 34.0 - 46.0 [facility] Comment on above: Performed By: #### 2 41358 #### [facility],[address] [place] [address] 90520 Hemoglobin (Bld) [Mass/Vol] 14.2 g/dL Normal 12.0 - 16.0 [facility] Comment on above: Performed By: #### 2 72554 #### [facility] [facility],[address] [place] [address] 27694 MCH (RBC) [Entitic mass] 31 pg Normal 27 - 33 [facility] Comment on above: Performed By: #### 2 77906 #### [facility],[address] [place] [address] 17158 MCHC 34 X10 3 Normal 32 - 36 [facility] Comment on above: Performed By: #### 2 32324 #### [facility],[address] [place] [address] 00715 MCV (RBC) [Entitic vol] 92 fL Normal 80 - 99 [facility] Comment on above: Performed By: #### 2 09930 #### [facility],[address] [place] [address] 25648 PLATELET 118 x10EE3/UL Low 150 - 450 [facility] Comment on above: Performed By: #### 2 33917 #### [facility],[address] [place] [address] 71465 Platelet mean volume (Bld) [Entitic vol] 9.4 fL Normal 6.6 - 10.5 [facility] Comment on above: Performed By: #### 2 60484 #### [facility],[address] [place] [address] 00163 RBC 4.62 x 10EE6/UL Normal 4.10 - 5.30 [facility] Comment on above: Performed By: #### 2 66198 #### [facility],[address] [place] [address] 65176 WBC 9.8 x 10EE3/UL Normal 4.5 - 10.8 [facility] Comment on above: Performed By: #### 2 35797 #### [facility],[address] [place] [address] 25171 Calcaneus min 2 Viewson 07-25 Calcaneus min [address] [facility] Imaging Services [address] [place] [address] 53210 Calcaneus min 2 Views MR#: [id number] Acct: [id number] Name: DAVIDSON RICO Rep #: [id number] : 1945 F 79 From: Usman Busby i DO PCP: Dr. Anthony Garcia MD Status: REG CLI Study: Calcaneus min 2 Views Date of Exam: 08/17/24 Exam# [id number] Ordering Dr: Jeramy Mcduffie MD PROCEDURE: Right calcaneus radiographs, three views REASON FOR EXAM: Bilateral heel pain TECHNIQUE: Two views of the right calcaneus were obtained. COMPARISON: None. FINDINGS: Two views of the right calcaneus were obtained. The bones are osteopenic. No displaced fracture of the calcaneus is demonstrated. RAD/Calcaneus min 2 Views IMPRESSION: Osteopenia. No acute bony abnormality of the right calcaneus. If there is persistent pain or clinical concern, short-term follow-up MRI evaluation may be considered. Reading Location: [facility] CC: Dr. Jeramy Mcduffie MD; Dr. Anthony Garcia MD Music Education Adjunct Professor: Signed Normal [facility] Calcaneus min [address] [facility] Imaging Services [address] [place], [place] [id number] Calcaneus min 2 Views MR#: [id number] Acct: [id number] Name: DAVIDSON RICO Rep #: [id number] : 1945 F 79 From: Usman Busby i, DO PCP: Dr. Anthony Garcia MD Status: REG CLI Study: Calcaneus min 2 Views Date of Exam: 08/17/24 Exam# [id number] Ordering Dr: Jeramy Mcduffie MD PROCEDURE: Left calcaneus radiographs, two views REASON FOR EXAM: Left heel pain TECHNIQUE: Two views of the left calcaneus were obtained. COMPARISON: None. FINDINGS: Two views of the left calcaneus were obtained. Bones are osteopenic. No acute fracture or dislocation of the left calcaneus. RAD/Calcaneus min 2 Views IMPRESSION: Osteopenia. No acute bony abnormality of the left calcaneus. Reading Location: [facility] CC: Dr. Jeramy Mcduffie MD; Dr. Anthony Garcia MD Music Education Adjunct Professor: Signed Normal [facility] Neurology Visit Reporton Neurology Visit Report [facility] [address], [address] [place], [place] [id number] OFFICE VISIT Date of Service: 08/17/24 MR#: [id number] Acct: [id number] Name: DAVIDSON RICO Rep #: [id number] : 1945 Provider: Dr. Jeramy haider MD Age/Sex: 79/F Location[place] [facility] [place] Status: Signed [facility] Chief Complaint: Details: Interim History: Davidson returns for follow-up visit. She has a history of multiple sclerosis and osteoporosis. In January 2021, she had an episode of acute onset left-sided facial weakness and dysarthria that resolved by the following day. She was hospitalized. A head MRI revealed an enhancing right thalamic multiple sclerosis plaque. Due to concern that the event was a cerebrovascular ischemic event she was started on aspirin 81 mg daily. Atorvastatin was also initiated. She does not have any history of heart disease, hypertension, or diabetes mellitus. She was diagnosed with multiple sclerosis at the age of 60. Her presenting symptom was gait imbalance. Over the years, she has had fluctuating gait imbalance but had overall worsening of her gait. She has also had some cognitive slowing and easy forgetfulness. She has had weakness in her legs that is more pronounced in the right leg. She denied having numbness. She has bilateral eye blurring of vision. She reported a lumbar puncture performed in years past revealed findings consistent with multiple sclerosis (an official report is presently not available). She was initially treated with Copaxone then subsequently switched to Tecfidera. Apparently due to low lymphocyte count, Tecfidera was discontinued and she was placed on Ocrevus. This also produced a low lymphocyte count and the medication was discontinued around 2016. She has not taken any disease modifying therapy since that time and, per prior discussion, did not wish to initiate another disease modifying medication. She is able to ambulate very short distances with a walker but feels markedly unsteady in doing so. Physical therapy was of benefit for her strength and mobility. She has received physical therapy and occupational therapy twice per week at home (self-pay) in 2023. She generally uses a manual wheelchair. She previously saw a neurologist at the [facility]. She has fatigue. A B12 injection was of benefit for her fatigue. Ropinirole and gabapentin have been of benefit for her restless leg syndrome. Magnesium oxide has been of benefit for her lower extremity muscle cramps. She takes a potassium supplement. She has musculoskeletal pain in the biceps and forearms (right greater than left) and some right shoulder pain. She has neck pain. In 2022, she had shingles involving the right side of the torso and right arm; she was treated with a course of acyclovir; gabapentin was of benefit for her neuropathic pain related to her shingles; the pain related to her shingles has resolved. She reported having a vasovagal syncopal episode in August or September 2023, while going to the bathroom. In years past, she had occasional vasovagal syncopal episodes. She stated that EMS was called and she did not go to the emergency room. She uses compression stockings. Diclofenac gel was prescribed for her shoulder pain. She reports having bilateral heel pain. Physical Exam: Neuro: The patient is awake; she is slightly bradyphrenic; speech is fluent; motor strength is 5/5 in the quadriceps bilaterally and foot dorsiflexors bilaterally; posture is stooped including flexion of the neck Extremities: dorsal pedis pulses are +2 bilaterally; no cyanosis; slight tenderness is noted in the posterior heel regions bilaterally; no tenderness is noted over the plantar surfaces of the heels. Neck: No bruits Heart: Regular rate and rhythm Supplemental Info Lymphocyte counts: 0.47 (12/06/2014), 0.61 (12/01/2015), 0.64 (02/04/2017), 0.49 (01/08/2018), 0.65 (02/24/2018), 0.44 (02/13/2018), 0.66 (07/17/2018), 0.55 (09/25/2018), 0.7 (11/03/2018), 0.77 (03/01/2019), 0.81 (03/21/2020), 0.77 (05/22/2020), 1.50 (02/23/2021) Vitamin D (02/04/2017): Normal. TSH (01/08/2018): Normal. Rheumatoid factor, ALON, Lorrie-1 antibody (03/01/2019): Unremarkable. Head CT (02/10/2021): Age-appropriate atrophy is present. No visible acute hemorrhage or lesion. Deep white matter small vessel disease changes are present. Conclusion: No acute disease. Cervical spine CT (02/10/2021): Findings: C2-3: There is facet arthropathy and anterior listhesis contributing to at least moderate left foraminal narrowing. C3-4: Anterior listhesis and facet arthropathy contributes to at least moderate right and moderate severe left foraminal narrowing. C4-5: Disc height loss, uncovertebral hypertrophy and facet arthropathy contributes to severe left foraminal narrowing. C5-6: Disc height loss and uncovertebral hypertrophy contributes to mild right foraminal narrowing. There is at least mild spinal canal n (more content not included)... Normal [facility] HEPATITIS C AB IA W/CONFIRM [CCL]on 04-28-2024 Hepatitis C Ab IA Negative Normal Negative [facility] Comment on above: Result Comment: The result suggests no evidence of active infection with Hepatitis C virus. Should recent infection be suspected, repeat testing may be considered 4-6 weeks after this draw. [facility] [address] [place] [address] Sascha Tomas III, M.D. [id number] Performed By: #### 2 62060 #### [facility],[address] [place], [place] [id number] CBC (NO DIFF)on 04-27-2024 CBC panel Auto (Bld) Normal [facility] Comment on above: Result Comment: CBC( WITHOUT DIFFERENTIAL) Performed By: #### 2 47129 #### [facility],[address] [place] [address] 11254 Erythrocyte distribution width (RBC) [Ratio] 13.0 % Normal 12.0 - 15.6 [facility] Comment on above: Performed By: #### 2 74279 #### [facility],[address] [place] [address] 72910 Hematocrit (Bld) [Volume fraction] 41.3 % Normal 34.0 - 46.0 [facility] Comment on above: Performed By: #### 2 28549 #### [facility],[address] [place] [address] 23547 Hemoglobin (Bld) [Mass/Vol] 13.5 g/dL Normal 12.0 - 16.0 [facility] Comment on above: Performed By: #### 2 31536 #### [facility],[address] [place] [address] 44470 MCH (RBC) [Entitic mass] 30 pg Normal 27 - 33 [facility] Comment on above: Performed By: #### 2 41482 #### [facility],[address] [place] [address] 67407 MCHC 33 X10 3 Normal 32 - 36 [facility] Comment on above: Performed By: #### 2 91246 #### [facility],[address] [place] [address] 84332 MCV (RBC) [Entitic vol] 93 fL Normal 80 - 99 [facility] Comment on above: Performed By: #### 2 63169 #### [facility],[address] [place] [address] 95233 PLATELET 114 x10EE3/UL Low 150 - 450 [facility] Comment on above: Performed By: #### 2 17850 #### [facility],[address] [place] [address] 81867 Platelet mean volume (Bld) [Entitic vol] 9.0 fL Normal 6.6 - 10.5 [facility] Comment on above: Performed By: #### 2 58986 #### [facility],[address] [place] [address] 77161 RBC 4.47 x 10EE6/UL Normal 4.10 - 5.30 [facility] Comment on above: Performed By: #### 2 21103 #### [facility],[address] [place] [address] 48099 WBC 4.3 x 10EE3/UL Low 4.5 - 10.8 [facility] Comment on above: Performed By: #### 2 52744 #### [facility],[address] [place] [address] 93773 HCV Ab Ser Qlon 04-27-2024 HCV Ab Ql (S) Negative Normal Negative [facility] Comment on above: Order Comment: Speci men Type: BLOOD SPECIMEN Ordering Facility: [facility] Address: [address] [place] [address] Result Comment: The result suggests no evidence of active infection with Hepatitis C virus. Should recent infection be suspected, repeat testing may be considered 4-6 weeks after this draw. Performed By: #### 1 6128-1 #### [facility] CLIA [id number] [address] [place], [place] [address] [address] [place] PROTHROMBIN TIME AND INRon 1 06-27-2023 INR Coag (PPP) [Relative time] 1.0 {INR} Normal 0.8 - 1.2 [facility] Comment on above: Result Comment: T HE HEMOSIL THROMBOPLASTIN REAGENT USED IN THE PROTHROMBIN TIME TEST INTERACTS WITH THE DRUG CUBICIN (DAPTOMYCIN) AND WILL RESULT IN FALSELY ELEVATED PT / INR RESULTS INR INTERPRETATION INR INDICATION PREVENTION AND TREATMENT OF THROMBOEMBOLISM ASSOCIATED WITH: 2.0 - 3.0 ATRIAL FIBRILLATION, BIOPROSTHETIC HEART VALVES, PULMONARY EMBOLISM, VENOUS THROMBOSIS, SYSTEMIC EMBOLISM POST MYOCARDIAL INFARCTION 2.5 - 3.5 MECHANICAL HEART VALVES Performed By: #### 2 42192 #### [facility],[address] [place] [address] PROTHROMBIN TIME AND INR Normal [facility] Comment on above: Result Comment: PROT HROMBIN TIME AND INR Performed By: #### 2 24096 #### [facility],[address] [place] [address] PT-COUMADIN 11.8 sec Normal 9.3 - 14.1 [facility] Comment on above: Performed By: #### 2 88288 #### [facility],[address] [place] [address] TSHon 04-27-2024 TSH Qn 2.26 m[IU]/L Normal 0.35 - 3.74 [facility] Comment on above: Performed By: #### 2 52867 #### [place] [address] CBC + DIFFon 03-24-2024 Baso # 0.01 x10EE3/UL Normal 0.00 - 0.10 [facility] Comment on above: Performed By: #### 2 27101 #### [place] [address] Basophils/100 WBC (Bld) 0.3 % Normal 0.0 - 2.0 [facility] Comment on above: Performed By: #### 2 00922 #### [place] [address],[place] [address] CBC + DIFF Normal [facility] Comment on above: Result Comment: CBC- COMPLETE BLOOD COUNT Performed By: #### 2 75336 #### [facility],[address] [place] [address] 36022 EO # 0.04 x10EE3/UL Normal 0.00 - 0.50 [facility] Comment on above: Performed By: #### 2 73347 #### [facility],[address] [place] [address] 16146 Eosinophils/100 WBC (Bld) 0.8 % Normal 0.0 - 7.0 [facility] Comment on above: Performed By: #### 2 59136 #### [facility],[address] [place] [address] 91383 Erythrocyte distribution width (RBC) [Ratio] 13.1 % Normal 12.0 - 15.6 [facility] Comment on above: Performed By: #### 2 62896 #### [facility],[address] [place] [address] 07274 Hematocrit (Bld) [Volume fraction] 41.3 % Normal 34.0 - 46.0 [facility] Comment on above: Performed By: #### 2 52513 #### [facility],[address] [place] [address] 96138 Hemoglobin (Bld) [Mass/Vol] 13.4 g/dL Normal 12.0 - 16.0 [facility] Comment on above: Performed By: #### 2 58767 #### [facility],[address] [place] [address] 87367 Lymph # 1.18 x10EE3/UL Normal 0.80 - 2.80 [facility] Comment on above: Performed By: #### 2 92918 #### [facility],[address] [place] [address] 00082 Lymphocytes/100 WBC (Bld) 23.7 % Normal 20.0 - 45.0 [facility] Comment on above: Performed By: #### 2 39685 #### [facility],[address] [place] [address] MANUAL DIFF N/A Normal [facility] Comment on above: Performed By: #### 2 38179 #### [facility],[address] [place] [address] MCH (RBC) [Entitic mass] 30 pg Normal 27 - 33 [facility] Comment on above: Performed By: #### 2 35894 #### [facility],[address] [place] [address] MCHC 33 X10 3 Normal 32 - 36 [facility] Comment on above: Performed By: #### 2 84452 #### [facility],[address] [place] [address] MCV (RBC) [Entitic vol] 92 fL Normal 80 - 99 [facility] Comment on above: Performed By: #### 2 15116 #### [facility],[address] [place] [address] Dane # 0.44 x10EE3/UL Normal 0.20 - 1.00 [facility] Comment on above: Performed By: #### 2 22235 #### [facility],[address] [place] [address] MONOS % 8.9 % Normal 0.0 - 10.0 [facility] Comment on above: Performed By: #### 2 01431 #### [facility],[address] [place] [address] Morphology Francisco (Bld) [Interp] N/A Normal [facility] Comment on above: Performed By: #### 2 20453 #### [facility],[address] [place] [address] Neut # 3.29 x10EE3/UL Normal 1.50 - 7.10 [facility] Comment on above: Performed By: #### 2 57182 #### [facility],[address] [place] [address] 25471 Neutrophils/100 WBC (Bld) 66.3 % Normal 46.0 - 76.0 [facility] Comment on above: Performed By: #### 2 52892 #### [facility],[address] [place] [address] 43491 PLATELET 98 x10EE3/UL Low 150 - 450 [facility] Comment on above: Performed By: #### 2 43524 #### [facility],[address] [place] [address] 31969 Platelet mean volume (Bld) [Entitic vol] 9.1 fL Normal 6.6 - 10.5 [facility] Comment on above: Result Comment: AUTO MATED DIFFERENTIAL Performed By: #### 2 07170 #### [facility],[address] [place] [address] 35722 RBC 4.49 x 10EE6/UL Normal 4.10 - 5.30 [facility] Comment on above: Performed By: #### 2 33346 #### [facility],[address] [place] [address] 87084 WBC 5.0 x 10EE3/UL Normal 4.5 - 10.8 [facility] Comment on above: Performed By: #### 2 50647 #### [facility],[address] [place] [address] 43332 CMP with eGFRon 03-24-2024 AGE 79 years Normal [facility] Comment on above: Performed By: #### 2 24566 #### [facility],[address] [place] [address] 20494 Albumin [Mass/Vol] 3.5 g/dL Normal 3.4 - 5.0 [facility] Comment on above: Performed By: #### 2 34904 #### [facility],[address] [place] [address] 35935 Albumin/Globulin [Mass ratio] 1.3 {ratio} Normal 0.9 - 1.6 [facility] Comment on above: Performed By: #### 2 73515 #### [facility],[address] [place] [address] 76554 ALK PHOS 65 U/L Normal 46 - 116 [facility] Comment on above: Performed By: #### 2 19770 #### [facility],[address] [place] [address] 43365 ALT [Catalytic activity/Vol] 20 U/L Normal 16 - 63 [facility] Comment on above: Performed By: #### 2 90448 #### [facility],[address] [place] [address] 03349 Anion gap [Moles/Vol] 11 mmol/L Normal 10 - 20 [facility] Comment on above: Performed By: #### 2 75962 #### [facility],[address] [place] [address] 00896 AST [Catalytic activity/Vol] 21 U/L Normal 13 - 39 [facility] Comment on above: Performed By: #### 2 31368 #### [facility],[address] [place] [address] 85205 B/C RATIO 28 ratio Normal 0 - 30 [facility] Comment on above: Performed By: #### 2 74770 #### [facility],[address] [place] [address] 26177 Bilirubin [Mass/Vol] 0.6 mg/dL Normal 0.2 - 1.0 [facility] Comment on above: Performed By: #### 2 00482 #### [facility],[address] [place] [address] 17752 Calcium [Mass/Vol] 9.0 mg/dL Normal 8.5 - 10.1 [facility] Comment on above: Performed By: #### 2 19906 #### [facility],[address] [place] [address] 60141 Chloride [Moles/Vol] 104 mmol/L Normal 98 - 107 [facility] Comment on above: Performed By: #### 2 00071 #### [facility],[address] [place] [address] 47863 CMP with eGFR Normal [facility] Comment on above: Result Comment: COMP REHENSIVE METABOLIC PANEL Performed By: #### 2 99532 #### [facility],[address] [place], [place] [address] CO2 [Moles/Vol] 29.8 mmol/L Normal 21.0 - 32.0 [facility] Comment on above: Performed By: #### 2 19682 #### [facility],[address] [place] [address] Creatinine [Mass/Vol] 0.58 mg/dL Normal 0.55 - 1.02 [facility] Comment on above: Performed By: #### 2 58628 #### [facility],[address] [place] [address] GFR/1.73 sq M.predicted among non-blacks MDRD (S/P/Bld) [Vol rate/Area] mL/min/{1.73_m2} Normal 60 - 999 [facility] Comment on above: Performed By: #### 2 88075 #### [facility],[address] [place] [address] Result Comment: ACCO RDING TO THE NATIONAL KIDNEY DISEASE EDUCATION PROGRAM(NKDE), A NORMAL eGFR IS A VALUE GREATER THAN OR EQUAL TO 60 ML/MIN/1.73 SQ METERS. CHRONIC KIDNEY DISEASE: <60mL/MIN/1.73 SQ METERS KIDNEY FAILURE: <15mL/MIN/1.73 SQ METERS THIS TEST SHOULD ONLY BE USED FOR PATIENTS 18 YEARS OF AGE AND OLDER. Globulin (S) [Mass/Vol] 2.7 g/dL Normal 1.5 - 3.8 [facility] Comment on above: Performed By: #### 2 63618 #### [facility],[address] [place], [place] [address] Glucose [Mass/Vol] 79 mg/dL Normal 74 - 106 [facility] Comment on above: Performed By: #### 2 21155 #### [facility],[address] [place] [address] 85255 Potassium [Moles/Vol] 4.0 mmol/L Normal 3.5 - 5.1 [facility] Comment on above: Performed By: #### 2 97171 #### [facility],[address] [place] [address] 10879 Protein [Mass/Vol] 6.2 g/dL Low 6.4 - 8.2 [facility] Comment on above: Performed By: #### 2 60877 #### [facility],[address] [place] [address] 31595 Sodium [Moles/Vol] 141 mmol/L Normal 136 - 145 [facility] Comment on above: Performed By: #### 2 71815 #### [facility],[address] [place] [address] 47488 Urea nitrogen [Mass/Vol] 16 mg/dL Normal 7 - 18 [facility] Comment on above: Performed By: #### 2 72546 #### [facility],[address] [place] [address] 51609 LIPID PROFILEon 03-24-2024 Cholesterol [Mass/Vol] 148 mg/dL Normal 0 - 240 [facility] Comment on above: Performed By: #### 2 12956 #### [facility],[address] [place] [address] 46105 Cholesterol in HDL [Mass/Vol] 81 mg/dL High 40 - 60 [facility] Comment on above: Performed By: #### 2 [id number] #### [facility],[address] [place] [address] 35656 Cholesterol in LDL [Mass/Vol] 47 mg/dL Normal 0 - 129 [facility] Comment on above: Performed By: #### 2 [id number] #### [facility],[address] [place] [address] 19460 Cholesterol.total/Isi sterol in HDL [Mass ratio] 1.8 {ratio} Normal 0.0 - 5.0 [facility] Comment on above: Performed By: #### 2 [id number] #### [facility],[address] [place] [address] 86448 Lipid 1996 panel Normal [facility] Comment on above: Result Comment: LIPI D PROFILE Performed By: #### 2 [id number] #### [facility],[address] [place] [address] 39060 Triglyceride [Mass/Vol] 98 mg/dL Normal 0 - 150 [facility] Comment on above: Performed By: #### 2 [id number] #### [facility],[address] [place] [address] 18504 Carotid Duplex Ultrasoundon 11-10-2023 Carotid Duplex Ultrasound [facility] [address] [place] [address] Carotid Duplex Ultrasound 11/10/23 1359 MR#: [id number] Acct: [id number] Name: DAVIDSON RICO Rep #: [id number] : 1945 78 From: Guevara Villagomez MD Attending Dr: Dr. Jeramy Mcduffie MD Status: R EG CLI Ordering Dr: Jeramy Mcduffie MD Date: 11/10/23 Location: CVS Sex: F C Admitted: Reason For Study: Bilateral carotid stenosis Rt. Velocities/BP Lt. Velocities/BP Prox CCA 95.1/16.0 cm/sec. Prox CCA 65.8/7.6 cm/sec. Mid CCA 65.5/12.7 cm/sec. Mid CCA 70.4/14.9 cm/sec. Dist CCA 76.5/18.2 cm/sec. Dist CCA 79.6/19.8 cm/sec. Prox ICA 73.6/15.2 cm/sec. Prox ICA 50.2/11.9 cm/sec. Mid ICA 68.1/18.8 cm/sec. Mid ICA 74.0/18.7 cm/sec. Dist ICA 112.0/29.8 cm/sec. Dist ICA 134.4/26.7 cm/sec. Rt. ICA/CCA = 1.7. Lt. ICA/CCA = 1.9. Prox ECA 90.0/7.8 cm/sec. Prox ECA 83.1/6.2 cm/sec. Rt. Vert. 53.4/10.5 cm/sec. Lt. Vert. 46.1/13.6 cm/sec. Right Extracranial There is intimal thickening but no significant atherosclerotic plaque noted in the right common carotid artery. There is intimal thickening but no significant atherosclerotic plaque noted in the right internal carotid artery. There is intimal thickening but no significant atherosclerotic plaque noted in the right external carotid artery. Antegrade flow is noted in the right vertebral artery. Left Extracranial There is intimal thickening but no significant atherosclerotic plaque noted in the left common carotid artery. There is intimal thickening but no significant atherosclerotic plaque noted in the left internal carotid artery. The left internal carotid artery is very tortuous. The tortuous nature of the left internal carotid artery may result in flow velocities overestimating the degree of stenosis. There is intimal thickening but no significant atherosclerotic plaque noted in the left external carotid artery. Antegrade flow is noted in the left vertebral artery. Procedure Carotid Duplex 06912. This is a Carotid Duplex examination using B-mode, color flow and specral Doppler. The study was technically difficult due to patient positioning. Exam performed in department. VL/Carotid Duplex Ultrasound Interpretation Summary Intimal thickening at the proximal right internal carotid artery with less than 50% stenosis Less than 50% stenosis right external carotid artery Intimal thickening at the proximal left internal carotid artery. Very tortuous left internal carotid making velocity estimations likely overestimating the degree of stenosis. Less than 50% stenosis of the proximal left internal carotid artery with slight velocity elevation in the distal internal carotid artery but still less than 50% stenosis Less than 50% stenosis left external carotid artery Patent antegrade vertebral arteries bilaterally No advancement of disease since her previous examination of April 05, 2022 Ordering Physician: Jeramy Mcduffie Referring Physician: Anthony Garcia Performed By: Jordy Alonso, FRANCOT 11/10/23 1602 Date Guevara Villagomez MD CC: Dr. Jeramy Mcduffie MD; Dr. 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 Vitamin D 1,25-Dihydroxyon 0 10-30-2023 VIT D 1,25 DIHY 68.8 pg/mL Normal 24.8-81.[address] [facility] Comment on above: Result Comment: Perf ormed at: - [facility] [id number] Tennis Net Maker: Jeet Plascencia MD, Phone: [phone] Performed By: #### L 3300.0960, L506.0250 #### [facility] [address] [place], [place], [address] Folates, (Folic Acid)on FOLATES 30.40 ng/mL Normal 3.1-55.[address] [facility] Comment on above: Order Comment: UNK N Performed By: #### L 3300.0960, L506.0250 #### [facility] [address] [place], [address] Neurology Visit Reporton Neurology Visit Report [facility] [address], [address] [place] [address] OFFICE VISIT Date of Service: 10/27/23 MR#: [id number] Acct: [id number] Name: TRISHARASSAE Goel Rep #: [id number] : 1945 Provider: Dr. Jeramy haider MD Age/Sex: 78/F Location: BMS.BN Status: Signed with Addenda ADDENDUM by Dr. Jeramy Mcduffie MD on 12/04/23 at 1700 Addendum Addendum (12/04/2023): Diclofenac gel 1% apply 4 g twice daily as needed was prescribed in June 2023 for her shoulder pain. 12/04/23 170 Date Jeramy Mcduffie MD cc: * Signed Intake Vital Signs 06/24/23 15:11 10/27/23 13:56 Height 5 ft 2 in 5 ft 2 in Weight: 114 lb BMI 20.8 BP 106/80 106/70 Blood Pressure Location Rt brachial Lt brachial Position Sitting Sitting Respiration 17 17 Pulse 84 82 Pulse Source Monitor Monitor Temp 98.2 F 98.2 F Temp Source Temporal Temporal Pulse Oximetry (%) 99 95 Oxygen Delivery Method room air room air Intake Visit Reasons: 4 M FU Chief Complaint: Human Intelligence Required: No Accompanied by: Allergies insect venom Allergy (Verified 10/27/23 14:03) NEEDS FOLLOW-UP fluoxetine [From Prozac] Adverse Reaction (Intermediate, Verified 10/27/23 14:03) agitation sertraline [From Zoloft] Adverse Reaction (Intermediate, Verified 10/27/23 14:03) agitation nitrofurantoin [From Macrobid] Adverse Reaction (Mild, Verified 10/27/23 14:03) Urinary anti-infectives weakness nortriptyline [From Pamelor] Adverse Reaction (Mild, Verified 10/27/23 14:03) felt poorly [facility] Medical History (Updated 10/27/23 @ 14:[address] Jeramy Mcduffie MD) Depression Dysuria H/O breast lump Hypokalemia Multiple sclerosis RODRIGO (obstructive sleep apnea) Osteoporosis Right shoulder pain Surgical History H/O breast biopsy ( 2006) Social History household members: spouse housing: house current occupational status: retired pets and animals: Yes pets and animals: dog(s) Smoking Status: Never smoker Electronic Cigarette Use: not used second hand exposure: No alcohol intake: never substance use type: does not use caffeine: Yes seatbelt use: always do you feel safe at home: Yes HPI HPI Chief Complaint: Details: Interim History: Davidson returns for follow-up visit. She has a history of multiple sclerosis and osteoporosis. In January 2021, she had an episode of acute onset left-sided facial weakness and dysarthria that resolved by the following day. She was hospitalized. A head MRI revealed an enhancing right thalamic multiple sclerosis plaque. Due to concern that the event was a cerebrovascular ischemic event she was started on aspirin 81 mg daily. Atorvastatin was also initiated. She does not have any history of heart disease, hypertension or diabetes mellitus. She was diagnosed with multiple sclerosis at the age of 60. Her presenting symptom was gait imbalance. Over the years, she has had fluctuating gait imbalance but had overall worsening of her gait. She has also had some cognitive slowing and easy forgetfulness. She has had weakness in her legs that is more pronounced in the right leg. She denied having numbness. She has bilateral eye blurring of vision. She reported a lumbar puncture performed in years past revealed findings consistent with multiple sclerosis (an official report is presently not available). She was initially treated with Copaxone then subsequently switched to Tecfidera. Apparently due to low lymphocyte count, Tecfidera was discontinued and she was placed on Ocrevus. This also produced a low lymphocyte count and the medication was discontinued around 2016. She has not taken any disease modifying therapy since that time and, per prior discussion, did not wish to initiate another disease modifying medication. She is able to ambulate very short distances with a walker but feels markedly unsteady in doing so. Physical therapy was of benefit for her strength and mobility. She is receiving physical therapy and occupational therapy twice per week at home (self-pay). She generally uses a manual wheelchair. Within recent years she has had worsening of her handwriting ability. She reports that within recent months her right leg weakness may have worsened slightly further. She previously saw a neurologist at the [facility]. She has fatigue. A B12 injection was of benefit for her fatigue. Ropinirole and gabapentin have been of benefit for her restless leg syndrome. Magnesium oxide has been of benefit for her lower extremity muscle cramps. She takes a potassium supplement. She has musculoskeletal pain in the biceps and forearms (right greater than left) and some right shoulder pain. She has neck robbie (more content not included)... Normal [facility] No Panel InformationOrdered By: Jeramy Mcduffie on 10-27-2023 Folate 30.40 ng/mL 3.1-55.[address] [facility] Serum or plasma calcitriol m easurement (mass/volume)Ordered By: Jeramy Mcduffie on 10-27-2023 1,25-dihydroxyvitamin D3 [Mass/Vol] 68.8 pg/mL 24.8-81.[address] [facility] Comment on above: Performed at: [address] [id number] Director: Jeet Plascencia MD, Phone: [phone] Bacteria Ur Culton 4 Bacteria identified Cx Nom (U) ORGANISM ID: 1 >=100,000 CFU/ml Normal urogenital millie Normal [facility] Comment on above: Performed By: #### 6 30-4 #### [facility] CLIA [id number] [address] [place] [address] [place] Basophil percentageon 2021 Basophil percentage < 0.9 mg/dL 0.55-1.02 [facility] Work Phone: No Panel Informationon 11-30 Bedside Estimated GFR (eGFR) > 60.0000 mL/min >[address] [facility] Work Phone: Culture, urineon 11-09-2021 Bacteria identified Cx Nom (U) Positive [facility] Work Phone: Absolute lymphocyte counton 08-29-2021 Lymphocytes Auto (Unsp spec) [#/Vol] 0.83 10*3/uL 0.83-4.[address] [facility] Work Phone: Basophil percentageon 2021 Basophils/100 WBC (Bld) 0.4 % 0-1 [facility] Work Phone: Bilirubin [Mass/Vol] 0.30 mg/dL 0.20-1.00 [facility] Work Phone: Comment on above: For patients on eltr ombopag therapy, use of Dimension [place] TBIL is not recommended. Chloride [Moles/Vol] 106 mmol/L 98-107 [facility] Work Phone: Cholesterol [Mass/Vol] 180 mg/dL <200 [facility] Work Phone: Comment on above: <200 mg/dL Desirable 200-240 mg/dL Borderline >240 mg/dL High Risk Eosinophils/100 WBC (Bld) 1.2 % 0-[address] [facility] Work Phone: Glucose [Mass/Vol] 105 mg/dL 74-106 [facility] Work Phone: Comment on above: Fasting Glucose resu lt from 100 to 125 mg/dL suggests IMPAIRED HOMEOSTASIS per A.D.A. criteria. Neutrophils (Bld) [#/Vol] 3.8 10*3/uL 2.0-7.[address] [facility] Work Phone: Neutrophils/100 WBC (Bld) 75.0 % 47-[address] [facility] Work Phone: Potassium [Moles/Vol] 3.8 mmol/L 3.5-5.1 [facility] Work Phone: Protein [Mass/Vol] 6.5 g/dL 6.4-8.2 [facility] Work Phone: Sodium [Moles/Vol] 138 mmol/L 136-145 [facility] Work Phone: Triglyceride [Mass/Vol] 142 mg/dL [facility] Work Phone: Comment on above: The drugs N-Acetylcy steine and Metamizole may falsely depress this assay.Serum Triglycerides Reference Interval Normal <150 mg/dL Borderline high 150 - 199 mg/dL High 200 - 499 mg/dL Very High > or = 500 mg/dL WBC (Bld) [#/Vol] 5.0 10*3/uL 4.4-11.0 [facility] Work Phone: Blood erythrocytes count (nu mber/volume)on 08-29-2021 RBC (Bld) [#/Vol] 4.66 10*6/uL 4.2-5.4 [facility] Work Phone: Blood hemoglobin measurement (mass/volume)on 08-29-2021 Hemoglobin (Bld) [Mass/Vol] 14.2 g/dL 12.0-15.[address] [facility] Work Phone: Blood lymphocytes/100 leukoc yteson 08-29-2021 Lymphocytes/100 WBC (Bld) 16.6 % 19-[address] [facility] Work Phone: Blood monocytes/100 leukocyt eson 08-29-2021 Monocytes/100 WBC (Bld) 6.2 % 0-10 [facility] Work Phone: Blood platelet mean volumeon 08-29-2021 Platelet mean volume (Bld) [Entitic vol] 11.7 fL 6.2-12.[address] [facility] Work Phone: Determination of erythrocyte mean corpuscular volume (MCV)on 08-29-2021 MCV (RBC) [Entitic vol] 94.4 fL 81-99 [facility] Work Phone: Hematocrit Auto (Bld) [Volum e fraction]on 08-29-2021 Hematocrit (Bld) [Volume fraction] 44.0 % 37-[address] [facility] Work Phone: Iron measurement (mass/mass) on 08-29-2021 Iron (Unsp spec) [Mass/Mass] 37 ug/dL 50-[address] [facility] Work Phone: Laboratory - Chemistry and C hemistry - challengeon 08-29-2021 ALP [Catalytic activity/Vol] 51 U/L 45-[address] [facility] Work Phone: ALT [Catalytic activity/Vol] 20 U/L 13-[address] [facility] Work Phone: CO2 [Moles/Vol] 26.0 mmol/L 21.0-32.[address] [facility] Work Phone: Cobalamin (Vitamin B12) [Mass/Vol] 435 pg/mL 211-[address] [facility] Work Phone: Globulin (S) [Mass/Vol] 2.4 g/dL 2.2-4.2 [facility] Work Phone: Urea nitrogen/Creatinine [Mass ratio] 28.5 mg/mg 10-[address] [facility] Work Phone: Laboratory - Hematology and Cell countson 08-29-2021 Erythrocyte distribution width (RBC) [Entitic vol] 41.4 fL 35.1-43.[address] [facility] Work Phone: Erythrocyte distribution width (RBC) [Ratio] 11.9 % 11.6-14.[address] [facility] Work Phone: Immature granulocytes/100 WBC (Bld) 0.600 % 0.0-0.[address] [facility] Work Phone: Comment on above: IG% - Immature Granu locytes (promyelocytes, myelocytes and metamyelocytes) > 1% indicates that a LEFT SHIFT is Present. MCH (RBC) [Entitic mass] 30.5 pg 27.0-32.[address] [facility] Work Phone: Nucleated RBC/100 WBC (Bld) [Ratio] 0 % 0-[address] [facility] Work Phone: MCHC Auto (RBC) [Mass/Vol]on 08-29-2021 MCHC (RBC) [Mass/Vol] 32.3 g/dL 32-36 [facility] Work Phone: No Panel Informationon 08-29 Estimated GFR (MDRD) Amer 157 mL/min >[address] [facility] Work Phone: Comment on above: GFR Calc Estimated GFR (MDRD) Non-Af Amer 130 mL/min >[address] [facility] Work Phone: Comment on above: Non- GFR Calc Total Iron Binding Capacity 279 ug/dL 250-[address] [facility] Work Phone: Vitamin D 25-Hydroxy 24.2 ng/mL [facility] Work Phone: Comment on above: Vitamin D 25(OH) Sta tus Range Deficiency <20 ng/mL (50nmol/L) Insufficiency 20 - 30 ng/mL (50 - 75 nmol/L) Sufficiency 30 - 100 ng/mL (75 - 250 nmol/L) Toxicity >100 ng/mL (>250 nmol/L) Platelets bldon 08-29-2021 Platelets (Bld) [#/Vol] 118 10*3/uL 150-[address] [facility] Work Phone: Serum or plasma albumin brandon urement (mass/volume)on 08-29-2021 Albumin [Mass/Vol] 4.1 g/dL 3.2-5.0 [facility] Work Phone: Serum or plasma albumin/glob ulin mass ratioon 08-29-2021 Albumin/Globulin [Mass ratio] 1.7 {ratio} 0.9-2.[address] [facility] Work Phone: Serum or plasma calcium brandon urement (mass/volume)on 08-29-2021 Calcium [Mass/Vol] 9.0 mg/dL 8.5-10.1 [facility] Work Phone: Serum or plasma cholesterol in HDL measurement (mass/volume)on 08-29-2021 Cholesterol in HDL [Mass/Vol] 81 mg/dL [facility] Work Phone: Comment on above: The drugs N-Acetylcy steine and Metamizole may falsely depress this assay. Reference Range HDL <40 mg/dL Low HDL Cholesterol HDL >or= 60 mg/dL High HDL Cholesterol Serum or plasma cholesterol in VLDL measurement (mass/volume)on 08-29-2021 Cholesterol in VLDL [Mass/Vol] 28 mg/dL 5-[address] [facility] Work Phone: Serum or plasma creatinine m easurement (mass/volume)on 08-29-2021 Creatinine [Mass/Vol] 0.49 mg/dL 0.55-1.02 [facility] Work Phone: Comment on above: The validity of the calculated GFR & GFRAA in patients over 70 years has not been determined. Clinical correlation is essential. Serum or plasma ferritin beto surement (mass/volume)on 08-29-2021 Ferritin [Mass/Vol] 44 ng/mL 8-252 [facility] Work Phone: Serum or plasma folate measu rement (mass/volume)on 08-29-2021 Folate [Mass/Vol] 7.00 ng/mL 3.1-55.[address] [facility] Work Phone: Serum or plasma low density lipoprotein (LDL) cholesterol measurement (mass/volume)on 08-29-2021 Cholesterol in LDL [Mass/Vol] 71 mg/dL 0-[address] [facility] Work Phone: Serum or plasma urea nitroge n measurement (mass/volume)on 08-29-2021 Urea nitrogen [Mass/Vol] 14 mg/dL 7-[address] [facility] Work Phone: Thin prep Papanicolaou smear with manual screeningon 08-29-2021 Thin prep Papanicolaou smear with manual screening 12 U/L 15-[address] [facility] Work Phone: Thin prep Papanicolaou smear with manual screening 6 5-[address] [facility] Work Phone: Vital Signs Date Time Vital Sign Value Performing Clinician Faci lity 08-17-2024 13:20-0500 Body temperature 98.6 [degF] Dr. Anthony Garcia MD Work Phone: [facility] 08-17-2024 13:20-0500 Diastolic blood pressure 66 mm[Hg] Dr. Anthony Garcia MD Work Phone: [facility] 08-17-2024 13:20-0500 Heart rate 86 /min Dr. Anthony Garcia MD Work Phone: [facility] 08-17-2024 13:20-0500 Respiratory rate 16 /min Dr. Anthony Garcia MD Work Phone: [facility] 08-17-2024 13:20-0500 SaO2% (BldA) [Mass fraction] 97 % Dr. Anthony Garcia MD Work Phone: [facility] 08-17-2024 13:20-0500 Systolic blood pressure 130 mm[Hg] Dr. Anthony Garcia MD Work Phone: [facility] 10-27-2023 13:56-0400 Body height 157.[address] Shelby Wilcox Work Phone: [facility] 10-27-2023 13:56-0400 Body temperature 98.2 [degF] Dr. Shelby Wilcox Work Phone: [facility] 10-27-2023 13:56-0400 Diastolic blood pressure 70 mm[Hg] Dr. Shelby Wilcox Work Phone: [facility] 10-27-2023 13:56-0400 Heart rate 82 /min Dr. Shelby Wilcox Work Phone: [facility] 10-27-2023 13:56-0400 Respiratory rate 17 /min Dr. Shelby Wilcox Work Phone: [facility] 10-27-2023 13:56-0400 SaO2% (BldA) [Mass fraction] 95 % Dr. Shelby Wilcox Work Phone: [facility] 10-27-2023 13:56-0400 Systolic blood pressure 106 mm[Hg] Dr. Shelby Wilcox Work Phone: [facility] 06-24-2023 15:11-0500 Body height 157.[address] Shelby Wilcox Work Phone: [facility] 06-24-2023 15:11-0500 Body mass index (BMI) [Ratio] 20.8 kg/m2 Dr. Shelby Wilcox Work Phone: [facility] 06-24-2023 15:11-0500 Body temperature 98.2 [degF] Dr. Shelby Wilcox Work Phone: [facility] 06-24-2023 15:11-0500 Body weight 51.[address] Shelby Wilcox Work Phone: [facility] 06-24-2023 15:11-0500 Diastolic blood pressure 80 mm[Hg] Dr. Shelby Wilcox Work Phone: [facility] 06-24-2023 15:11-0500 Heart rate 84 /min Dr. Shelby Wilcox Work Phone: [facility] 06-24-2023 15:11-0500 Respiratory rate 17 /min Dr. Shelby Wilcox Work Phone: [facility] 06-24-2023 15:11-0500 SaO2% (BldA) [Mass fraction] 99 % Dr. Shelby Wilcox Work Phone: [facility] 06-24-2023 15:11-0500 Systolic blood pressure 106 mm[Hg] Dr. Shelby Wilcox Work Phone: [facility] 11-22-2021 15:48-0400 Body temperature 97.7 [degF] Dr. Jeramy Mcduffie Work Phone: [facility] Work Phone: 11-22-2021 15:48-0400 Diastolic blood pressure 60 mm[Hg] Dr. Jeramy Mcduffie Work Phone: [facility] Work Phone: 11-22-2021 15:48-0400 Heart rate 82 /min Dr. Jeramy Mcduffie Work Phone: [facility] Work Phone: 11-22-2021 15:48-0400 Respiratory rate 16 /min Dr. Jeramy Mcduffie Work Phone: [facility] Work Phone: 11-22-2021 15:48-0400 SaO2% (BldA) [Mass fraction] 93 % Dr. Jeramy Mcduffie Work Phone: [facility] Work Phone: 11-22-2021 15:48-0400 Systolic blood pressure 110 mm[Hg] Dr. Jeramy Mcduffie Work Phone: [facility] Work Phone: 07-24-2021 13:52-0500 Diastolic blood pressure 62 mm[Hg] Dr. Nesha Younger Work Phone: [facility] Work Phone: 07-24-2021 13:52-0500 Heart rate 75 /min Dr. Nesha Younger Work Phone: [facility] Work Phone: 07-24-2021 13:52-0500 SaO2% (BldA) [Mass fraction] 95 % Dr. Nesha Younger Work Phone: [facility] Work Phone: 07-24-2021 13:52-0500 Systolic blood pressure 110 mm[Hg] Dr. Nesha Younger Work Phone: [facility] Work Phone: Encounters Encounter Date Encounter Type Care Provider Facility Start: 12-23-2024 End: 12-24-2024 Emergency department patient visit NESHA Veronique [facility] Start: 11-23-2024 End: 11-23-2024 Emergency department patient visit NESHA BHAGAT [facility] Start: 08-17-2024 End: 08-17[facility]: 08-17-[facility]24 End: 08-17-[address] Anthony Garcia MD Work Phone: [facility] Work Phone: Start: 08-17-2024 End: 08-17-[address] Jeramy Mcduffie MD -Radiology, [place] Work Phone: Start: 08-17-2024 End: 08-17-[address] Jeramy Mcduffie MD -[facility] Work Phone: Start: 08-17-2024 End: 08-17-2024 [facility] Start: 08-17-2024 End: 08-17-2024 ambulatory Anthony Browningcorry Facility:[facility] Start: 04-27-2024 End: 04-27-2024 [facility] Start: 03-24-2024 End: 03-24-2024 [facility] Start: 03-24-2024 End: 03-24-2024 Encounter for general adult medical examination without abnormal findings [facility] Start: 02-09-2024 End: 02-09-2024 ambulatory HONORIO VAZQUEZ Facility: Start: 11-10-2023 ambulatory Guevara Villagomez Facility :LIAM Start: 11-10-2023 End: 11-10-2023 ambulatory Jeramy Mcduffie Facility:[facility] Start: 10-27-2023 End: 10-27-[address] Shelby Wilcox Work Phone: [facility] Work Phone: Start: 10-27-2023 End: 10-27-[address] Shelby Wilcox Work Phone: [facility] Work Phone: Start: 10-27-2023 End: 10-27-[address] Shelby Wilcox Work Phone: [facility] Work Phone: Start: 10-27-2023 End: 10-27-2023 ambulatory Shelby Wilcox Facility:[facility] Start: 10-27-2023 End: 10-27-2023 ambulatory Anthony Garcia Facility:[facility] Start: 06-26-2023 End: 06-26-2023 ambulatory MAKAYLA PETER Facility: Start: 06-24-2023 End: 06-24-[address] Shelby Wilcox Work Phone: [facility] Work Phone: Start: 06-24-2023 End: 06-24-[address] Shelby Wilcox Work Phone: [facility]rology Work Phone: Start: 04-05-2022 Non-patient / Non-visit Dr. Shekhar Wilcox Work Phone: [facility] Start: 04-05-2022 End: 04-05-[address] Shelby Wilcox Work Phone: [facility] Work Phone: Start: 04-05-2022 End: 04-05-[address] Shelby Wilcox Work Phone: [facility]-Cardiovascular Services Start: 11-30-2021 End: 11-30-[address] Jeramy Mcduffie Work Phone: [facility] Start: 11-22-2021 End: 11-22-[address] Jeramy Mcduffie Work Phone: [facility] Neurology Start: 11-09-2021 End: 11-09-[address] Nesha Younger Work Phone: [facility]-Laboratory, Specimen Start: 09-10-2021 End: 09-10-[address] Nesha Younger Work Phone: [facility]-Cardi[facility] Services Start: 08-29-2021 End: 08-29-[address] Nesha Younger Work Phone: [facility] [place] Start: 07-24-2021 End: 07-24-[address] Nesha Younger Work Phone: [facility] Neurology Start: 07-18-2021 End: 07-18-[address] Nesha Younger Work Phone: [facility]-Outpatient Breast Imaging Procedures Date Procedure Procedure Detail Performing Clinician Start: 12-24-2024 Urinalysis ANTHONY LENNON Comment on above: Result Comment: URIN ALYSIS Performed By: #### [id number] #### [place] [id number] Start: 11-23-2024 Urinalysis ANTHONY LENNON Comment on above: Result Comment: URIN ALYSIS Performed By: #### [id number] #### [place] [id number] Start: 08-17-2024 End: 08-17-2024 X-ray of calcaneus, two or more views Dr. Anthony Garcia MD Work Phone: Start: 06-24-2023 Plain X-ray of shoulder Dr. Shelby Wilcox Work Phone: Start: 11-30-2021 MRI of brain with contrast Dr. Jeramy Mcduffie Work Phone: Start: 11-09-[address] Nesha Younger Work Phone: Start: 07-18-2021 Screening mammography Nohemi Younger Work Phone: Plan of Treatment Date Care Activity Detail Author Start: 08-17-2024 Patient referral [facility] Work Phone: Start: 07-24-2021 Patient referral [facility] Work Phone: Patient referral [facility] Work Phone: US Carotid arteries [facility] Payers Date Payer Category Payer Self-pay [id number] 2023 Unknown [id number] 2009 Medicare [id number] 1945 Unknown [id number] 2.16.8 [id number] 1945 Unknown [id number] 2.16.8 [id number] 1945 Unknown [id number] 2.16.8 [id number] 1945 Unknown [id number] 2.16.8 [id number] 1945 Unknown [id number] 2.16.8 [id number] Unknown [id number] 2.16.8 [id number] Unknown [id number] 2.16.8 [id number] Unknown [id number] 2.16.8 [id number] Unknown [id number] 2.16.8 [id number] Unknown [id number] 2.16.8 [id number] Unknown [id number] 2.16.8 [id number] Unknown [id number] 2.16.8 [id number] Unknown [id number] 2.16.8 [id number] Social History Date Type Detail Facility Start: 07-24-2021 End: 06-24-2023 Tobacco smoking status NHIS Unknown if ever smoked [facility] Start: 1945 Sex Assigned At Female [facility] Start: 06-24-2023 Tobacco smoking stat us NHIS Never smoked tobacco (finding) [facility] Start: 09-01-2024 Sex Female (finding) [facility] Radiology Diagnostic study note 08-17-2024 Note Date & Type Note Facility 08-17-2024 Radiology Diagnostic study note [facility] Imaging Services [address] [place] [address] Calcaneus min 2 Views MR#: [id number] Acct: [id number] Name: DAVIDSON RICO Rep #: [id number] : 1945 F 79 From: Isra Simpson DO PCP: Dr. Anthony Garcia MD Status: R EG CLI Study:Calcaneus min 2 Views Date of Exam: 08/17/24 Exam# [id number] Ordering Dr: Jeramy Mcduffie MD PROCEDURE: Left calcaneus radiographs, two views REASON FOR EXAM: Left heel pain TECHNIQUE: Two views of the left calcaneus were obtained. COMPARISON: None. FINDINGS: Two views of the left calcaneus were obtained. Bones are osteopenic. No acute fracture or dislocation of the left calcaneus. RAD/Calcaneus min 2 Views IMPRESSION: Osteopenia. No acute bony abnormality of the left calcaneus. Reading Location: [facility]: Dr. Jeramy Mcduffie MD; Dr. 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 Radiology Diagnostic study note 08-17-2024 Note Date & Type Note Facility 08-17-2024 Radiology Diagnostic study note [facility] Imaging Services [address] [place], [place] [id number] Calcaneus min 2 Views MR#: [id number] Acct: [id number] Name: DAVIDSON RICO Rep #: [id number] : 1945 F 79 From: Isra Simpson DO PCP: Dr. Anthony Garcia MD Status: R EG CLI Study:Calcaneus min 2 Views Date of Exam: 08/17/24 Exam# [id number] Ordering Dr: Jeramy Mcduffie MD PROCEDURE: Right calcaneus radiographs, three views REASON FOR EXAM: Bilateral heel pain TECHNIQUE: Two views of the right calcaneus were obtained. COMPARISON: None. FINDINGS: Two views of the right calcaneus were obtained. The bones are osteopenic. No displaced fracture of the calcaneus is demonstrated. RAD/Calcaneus min 2 Views IMPRESSION: Osteopenia. No acute bony abnormality of the right calcaneus. If there is persistent pain or clinical concern, short-term follow-up MRI evaluation may be considered. Reading Location: [facility] CC: Dr. Jeramy Mcduffie MD; Dr. 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 Evaluation note 08-17-2024 Note Date & Type Note Facility 08-17-2024 Evaluation note Diagnosis Onset Date Resolution Heel pain, bilateral acute Febr uary 2024 1:14pm Muscular deconditioning acute F ebruary 2024 1:14pm Multiple sclerosis chronic Februa ry 2024 1:14pm Restless legs syndrome chronic Fe bruary 2024 1:14pm Bilateral carotid artery stenosis inactive August 17 1:14pm [facility] Work Phone: Evaluation note Note Date & Type Note Facility Evaluation note Diagnosis Onset Date Bilateral carotid artery stenosis acute Cerebrovascular disease acut e Fatigue acute Multiple sclerosis chronic 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 Work Phone: Evaluation note Note Date & Type Note Facility Evaluation note No assessment information availa ble [facility] Work Phone: Evaluation note Note Date & Type Note Facility Evaluation note Diagnosis Onset Date Fatigue chronic [facility] Work Phone: Evaluation note Note Date & Type Note Facility Evaluation note Diagnosis Onset Date Bilateral carotid artery stenosis chronic Fatigue chronic Multiple sclerosis chronic Restless legs syndrome chron ic [facility] Work Phone: Chief Complaint and Reason for Visit Chief Complaint SCREENING 2 M FU DECREASED PEDAL PULSES Reason for Visit Bilateral carotid ar dre stenosis Cerebrovascular disease Fatigue Multiple sclerosis Chief Complaint DECREASED PEDAL PULS ES 4 M FU MS Reason for Visit Bilateral carotid ar dre stenosis Cerebrovascular disease Fatigue Multiple sclerosis Chief Complaint BILAT CAROTID STENOS IS Chief Complaint 6 M FU left shoulder pain Reason for Visit Fatigue Chief Complaint 4 M FU EORDER Reason for Visit Bilateral carotid ar dre stenosis Fatigue Multiple sclerosis Restless legs syndrome Chief Complaint Admit Date FOLLOW UP August 17, 2024 1:14pm Bilateral heel pain August 17, 2024 2:34pm Reason for Visit Admit Date Heel pain, bilateral August 17, 2024 1:14pm Muscular deconditioning August 17, 2 025 1:14pm Multiple sclerosis August 17, 2024 1:14pm Restless legs syndrome August 17 1:14pm Bilateral carotid artery stenosis Februa 2024 1:14pm Summary Purpose Family History No Family History Records FoundNo Family History Records FoundNo Family History Records FoundNo Family History Records Found Advance Directives No Advanced Directives Records FoundNo Advanced Directives Records FoundNo Advanced Directives Records FoundNo Advanced Directives Records Found Additional Source Comments Goals (unrecognized section and content) Goals may be documented in a n alternate sectionGoals may be documented in an alternate sectionGoals may be documented in an alternate sectionGoals may be documented in an alternate sectionGoals may be documented in an alternate sectionGoals may be documented in an alternate section Care Teams (unrecognized sec tion and content) Team Status: Active Member Role Status Dates Dr. Nesha Younger MD Family Provider Active Dr. Shelby Wilcox DO Primary Care Provider Active Team Status: Inactive Member Role Status Dates Dr. Shelby Wilcox DO Primary Care Provider, Referr ing Provider Active Dr. Jeramy Mcduffie MD Attending Provider Active Team Status: Inactive Member Role Status Dates Dr. Shelby Wilcox DO Primary Care Provider Active Dr. Jeramy Mcduffie MD Attending Provider, Referring Provider Active Team Status: Active Member Role Status Dates Dr. Nesha Younger MD Family Provider Active Dr. Anthony Garcia MD Primary Care Provider Active Team Status: Inactive Member Role Status Dates Dr. Anthony Garcia MD Primary Care Provider Active Dr. Jeramy Mcduffie MD Attending Provider, Referring Provider Active Team Status: Inactive Member Role Status Dates Dr. Anthony Garcia MD Primary Care Provider Active Start: August 17, 2024 End: August 17, 2024 Dr. Anthony Garcia MD Referring Provider Active Start: August 17, 2024 End: August 17, 2024 Dr. Jeramy Mcduffie MD Attending Provider Active Start: August 17, 2024 End: August 17, 2024 Team Status: Inactive Member Role Status Dates Dr. Jeramy Mcduffie MD Attending Provider Active Start: August 17, 2024 End: August 17, 2024 Dr. Jeramy Mcduffie MD Referring Provider Active Start: August 17, 2024 End: August 17, 2024 Dr. Anthony Garcia MD Primary Care Provider Active Start: August 17, 2024 End: August 17, 2024 INFORMATION SOURCE (unrecogn ized section and content) DATE CREATED AUTHOR 02/11/2024 [facility] DATE CREATED AUTHOR AUTHOR'S ORGANIZ ATION 04/30/2024 [facility] DATE CREATED AUTHOR AUTHOR'S ORGANIZ ATION 09/04/2024 [facility] DATE CREATED AUTHOR AUTHOR'S ORGANIZ ATION 12/26/2024 [facility] FOR RECORDS PERTAINING TO PATIENTS WHO ARE [...] BE BASED ON THE PRIMARY CLINICAL RECORDS. [facility] provides no warranty or guarantee of the accuracy or completeness of information in this document.
== END | disposition home or self-care (01) ==
LOC: RAD 15:34
PROVIDERS: PCP Student in an Organized Health Care Education/Training Program; Referring Provider Anesthesiology; Visit Provider Anesthesiology
DX: M47.812 Spondylosis without myelopathy or radiculopathy, cervical region (principal)
CPT/HCPCS: 72040